=== PATIENT | male | born 1955 | race Caucasian/White ===

== ENCOUNTER 2022-08-18 13:59 | Emergency (ER) | payer SELFPAY ==
[2022-08-18 14:02] VITALS: BMI 33.2
[2022-08-18 14:06] VITALS: BP 138/80; PULSE 79; RESP 18; TEMP 37; O2SAT 98
--- NOTE | 2022-08-18 14:27 | ECG_ITS ---
[facility] Test Date: 2022-08-18 Pat Name: Stefano Williamson Department: Room: Gender: Male Bench Carpenter: : 1955 Requested By: Nader Bronson Order Number: [id number] Sisi MD: Sommer Peacock M.D. Measurements Intervals [place] Rate: 69 P: 79 [place]: 161 QRS: 64 QRSD: 96 T: 64 QT: 387 QTc: 415 Interpretive Statements SINUS RHYTHM No previous ECG available for comparison Electronically Signed On 08-18-2022 19:09:28 CDT by Sommer Peacock M.D. [id number] f
[2022-08-18 14:32] LABS: Basophils % 0.4 %; Eosinophils # 0.2 10^3/uL (0.0-0.8); Eosinophils % 1.7 %; Hematocrit 47.5 % (42.0-52.0); Hemoglobin 16.2 g/dL (11.7-16.6); Lymphocytes # 2.3 10^3/uL (0.8-4.8); Lymphocytes % 24.2 %; Mean Corpuscular HGB Conc 34.1 g/dL (30.0-36.0); Mean Corpuscular Hemoglobin 30.4 pg (28.0-34.0); Mean Corpuscular Volume 89.1 fl (80-94); Mean Platelet Volume 9.8 fL (7.4-10.4); Monocytes # 0.7 10^3/uL (0.2-0.9); Neutrophils # 6.09 10^3/uL (1.8-7.7); Neutrophils % 65.5 %; Nucleated Red Blood Cells % 0 %; Platelet Count 244 10^3/cmm (130-400); Red Blood Count 5.33 10^6/uL (4.1-5.3); Red Cell Distribution Width 13.2 % (12.1-15.1); White Blood Count 9.3 10^3/uL (4.0-10.0)
--- NOTE | 2022-08-18 14:37 | PC.NURSE ---
PT PLACED ON CONTINUOUS NIBP, SPO2, AND CM
--- NOTE | 2022-08-18 14:42 | XR_ITS ---
WS: [id number] Exam: XR chest 1V portable [id number] Date/Time of Exam: 08/18/2022 2:42 PM Reason For Exam: dyspnea/cough Comparison 08/18/2020. No prior studies. The lungs are hyperinflated and clear. Cardiomediastinal silhouette is unremarkable for portable tech nique. No pleural effusions are seen. Regional bony elements are intact. XR/XR chest 1V portable [id number] IMPRESSION: 1. Pulmonary hyperinflation. No acute process noted.
[2022-08-18 14:50] VITALS: PULSE 74; RESP 16; O2SAT 94
[2022-08-18] MEDS: ipratropium-albuterol 3 mL Neb INHALATION (14:58)
--- NOTE | 2022-08-18 14:58 | W.ED.SOB ---
HPI - SOB/Dyspnea General: Chief Complaint: Shortness of Breath/Dyspnea Stated Complaint: SOB Time Seen by Provider: 08/18/22 14:26 Source: patient Mode of arrival: ambulatory History of Present Illness: HPI Narrative: 67-year-old male presents emergency room complaining of shortness of breath. He has had flulike symptoms a week ago since then he has had persistent shortness of breath with any activity no chest pain. He gets chest tightness and discomfort when he coughs but other times he is fine. He has not used any albuterol or oxygen at home he does still currently smoke. She had a moderately productive cough no fever sweats or chills. MD elicited complaint: shortness of breath and cough Onset (ago): week(s) (1) Context: recent illness Timing: constant Severity: moderate Exacerbating factors: exertion, coughing and inspiration Associated symptoms: Reports chest congestion and chest pain (With cough and deep inspiration); Deny abdominal pain, cough, diaphoresis, dizziness, extremity pain, fever(s), hemoptysis, lightheadedness, myalgias, nausea, orthopnea, palpitations, paresthesias, polydipsia, polyuria, rash, sense of impending doom, syncope or vomiting Treatment prior to arrival: none Review of Systems Const: Denies: fever(s), chills, fatigue, malaise or diaphoresis ENMT: Denies: throat pain, ear or mastoid pain, nasal discharge or nasal congestion Card: Reports: chest pain (With cough and deep inspiration); Denies: palpitations, lightheadedness, syncope or orthopnea Resp: Reports: dyspnea, productive cough, wheezing and chest congestion; Denies: hemoptysis GI: Denies: abdominal pain, nausea or vomiting : Denies: flank pain, difficulty urinating, dysuria, urinary frequency or urinary urgency Musc: Denies: extremity pain Skin/Breast: Denies: rash or pruritus Neuro: Denies: dizziness Endo: Denies: polyuria or polydipsia [facility] ED PFSH: Medical History (Updated 08/18/22 @ 15:11 by Nader Hicks DO) No pertinent past medical history Surgical History (Updated 08/18/22 @ 15:11 by Nader Hicks DO) No pertinent past surgical history Social History (Updated 08/18/22 @ 15:11 by ROBERT Landeros Smoking and tobacco status: current every day smoker Alcohol intake: current Physical Exam Const: COMMON NORMALS: no acute distress GENERAL APPEARANCE: cooperative and comfortable ORIENTATION/CONSCIOUSNESS: Yes awake, Yes oriented to person, Yes oriented to place and Yes oriented to time HENMT: COMMON NORMALS: normocephalic, atraumatic and hearing grossly normal bilaterally HEAD & SCALP: normocephalic and atraumatic Resp: COMMON NORMALS: normal respiratory effort, No retractions and No use of accessory muscles AUSCULTATION: wheezes Cardio: COMMON NORMALS: regular rate, regular rhythm and No murmurs present (Cardio) RATE: regular rate RHYTHM: regular rhythm GI: COMMON NORMALS: Soft to palpation and No hepatosplenomegaly present AUSCULTATION: Yes normoactive bowel sounds PALPATION: Yes Soft to palpation, No Tenderness to palpation present (GI), No Guarding due to palpation present (GI) and Yes No hepatosplenomegaly present Extremity: COMMON NORMALS: normal to inspection, capillary refill normal, no clubbing, cyanosis or edema, no calf tenderness and no pedal edema Neuro: SENSORIUM/ORIENTATION: Yes oriented to person, Yes oriented to place and Yes oriented to time Skin: COMMON NORMALS: no rashes or lesions noted GENERAL SKIN EXAM: no rashes or lesions noted Course Vital Signs: Vital signs: Vital Signs Temperature 98.6 F 08/18/22 14:06 Pulse Rate 72 08/18/22 15:02 Respiratory Rate 16 08/18/22 14:50 Blood Pressure 138/80 08/18/22 14:06 Pulse Oximetry 94 08/18/22 14:50 Oxygen Delivery Me thod 08/18/22 14:50 MDM - SOB/Dyspnea Medical Decision Making Labs imaging and EKG reviewed as found in the chart. Hyperinflation on chest x-ray consistent with COPD. No acute infiltrates. Prednisone and nebs in the emergency room. Discharge home with albuterol start oral steroid burst and taper tomorrow course of doxycycline follow-up with primary care if not improving Medical Records I reviewed the patient's medical records. Lab Data I reviewed the patient's lab results. : 08/18/22 14:24 08/18/22 14:24 Labs/Radiology: Radiology Impressions Chest X-Ray 08/18/22 14:42 IMPRESSION: 1. Pulmonary hyperinflation. No acute process noted. Laboratory Results WBC 9.3 10^3/uL (4.0-10.0) 08/18/22 14:24 RBC 5.33 10^6/uL (4.1-5.3) H 08/18/22 14:24 Hgb 16.2 g/dL (11.7-16.6) 08/18/22 14:24 Hct 47.5 % (42.0-52.0) 08/18/22 14:24 MCV 89.1 fl (80-94) 08/18/22 14:24 MCH 30.4 pg (28.0-34.0) 08/18/22 14:24 MCHC 34.1 g/dL (30.0-36.0) 08/18/22 14:24 RDW 13.2 % (12.1-15.1) 08/18/22 14:24 Plt Count 244 10^3/cmm (130-400) 08/18/22 14:24 MPV 9.8 fL (7.4-10.4) 08/18/22 14:24 Neut % (Auto) 65.5 % 08/18/22 14:24 Lymph % (Auto) 24.2 % 08/18/22 14:24 [place] % (Auto) 8.0 % 08/18/22 14:24 Eos % (Auto) 1.7 % 08/18/22 14:24 Baso % (Auto) 0.4 % 08/18/22 14:24 Neut # (Auto) 6.09 10^3/uL (1.8-7.7) 08/18/22 14:24 Lymph # (Auto) 2.3 10^3/uL (0.8-4.8) 08/18/22 14:24 [place] # (Auto) 0.7 10^3/uL (0.2-0.9) 08/18/22 14:24 Eos # (Auto) 0.2 10^3/uL (0.0-0.8) 08/18/22 14:24 Baso # (Auto) 0.0 10^3/uL (0.0-0.1) 08/18/22 14:24 Nucleated RBC % (auto) 0 % 08/18/22 14:24 Nucleated RBCs # 0.0 /100WBC 08/18/22 14:24 Sodium 131 mmol/L (136-145) L 08/18/22 14:24 Potassium 4.5 mmol/L (3.5-5.1) 08/18/22 14:24 Chloride 100 mmol/L (98-107) 08/18/22 14:24 Carbon Dioxide 19 mmol/L (22-29) L 08/18/22 14:24 Anion Gap 16.5 (5-19) 08/18/22 14:24 BUN 20 mg/dL (8-23) 08/18/22 14:24 Creatinine 0.8 mg/dL (0.7-1.2) 08/18/22 14:24 GFR Calculation 97.0 mL/min (90-130) 08/18/22 14:24 Glucose 89 mg/dL (65-115) 08/18/22 14:24 Calculated Osmolality 274 mOsm/kg (285-295) L 08/18/22 14:24 Calcium 8.9 mg/dL (8.5-10.5) 08/18/22 14:24 Total Bilirubin 0.3 mg/dL (0.15-1.2) 08/18/22 14:24 AST 15 U/L (0-40) 08/18/22 14:24 ALT 20 U/L (0-41) 08/18/22 14:24 Alkaline Phosphatase 74 U/L (40-130) 08/18/22 14:24 Troponin T Baseline 7 ng/L (0-15) 08/18/22 14:24 Total Protein 6.7 g/dL (6.6-8.7) 08/18/22 14:24 Albumin 3.6 g/dL (3.5-5.2) 08/18/22 14:24 Globulin 3.1 g/dL (1.3-4.6) 08/18/22 14:24 Discharge Plan Discharge Patient Disposition: Home Clinical Impression: Acute exacerbation of chronic obstructive airways disease Condition: Stable Prescriptions: New doxycycline hyclate 100 mg capsule 100 mg PO BID 10 Days Qty: 20 0RF prednisone 20 mg tablet 20 mg PO TID Qty: 15 0RF Rx Instructions: 1 p.o. 3 times daily x3 days, 1 p.o. twice daily x2 days, 1 p.o. daily x2 days No Action nicotine 14 mg/24 hr Patch 24 Hour 1 patch TRANSDERMAL DAILY ibuprofen 800 mg Tablet 800 mg PO Q8H PRN (Reason: Pain) Mucinex DM 30-600 mg Tablet Extended Release 12 Hr 1 tab PO Q12H PRN (Reason: Cough) Discharge Orders: Discharge ED (Routine); Ordered 08/18/22 Ordered By: Nader Hicks Discharge Diet: Usual diet Discharge Activity: Increase activity as tolerated Patient Instructions: Opioid Safety, Pain Management Activity Restrictions/Additional Instructions: Use albuterol as needed. Start steroid taper tomorrow start antibiotics today. If not improving in the next week recheck with your primary care doctor Coding Level of Care Code ED Dipper Machine Operator for Brett Ragland
[2022-08-18 15:02] VITALS: PULSE 72
[2022-08-18 15:04] LABS: Alanine Aminotransferase 20 U/L (0-41); Albumin Level 3.6 g/dL (3.5-5.2); Alkaline Phosphatase 74 U/L (40-130); Anion Gap 16.5 (5-19); Aspartate Amino Transferase 15 U/L (0-40); Blood Urea Nitrogen 20 mg/dL (8-23); Calcium 8.9 mg/dL (8.5-10.5); Carbon Dioxide 19 mmol/L (22-29); Chloride 100 mmol/L (98-107); Globulin 3.1 g/dL (1.3-4.6); Glucose 89 mg/dL (65-115); Osmolality Calculated 274 mOsm/kg (285-295); Potassium 4.5 mmol/L (3.5-5.1); Sodium 131 mmol/L (136-145); Total Bilirubin 0.3 mg/dL (0.15-1.2); Total Protein 6.7 g/dL (6.6-8.7); Troponin(5th) Baseline 7 ng/L (0-15)
[2022-08-18 15:06] VITALS: BP 117/77; PULSE 77; RESP 20; O2SAT 95
[2022-08-18 15:13] LABS: Add Urine Microscopic? NO; Charge for UA Resulting for Rev
[2022-08-18 15:19] LABS: Bilirubin Urine Negative (Negative); Blood Urine Negative (Negative); Glucose Urine UA Negative (Normal); Ketones Urine Negative (Negative); Leukocyte Esterase Urine Negative (Negative); Nitrate Urine Negative; Protein Urine Negative; Specific Gravity, Urine 1.025 (1.005-1.030); Urine Appearance Clear (CLEAR); Urine Color Yellow (Yellow); Urobilinogen Urine 0.2 mg/dL (Negative); pH Urine 5.5 (5-7)
[2022-08-18 15:28] VITALS: BP 117/77; PULSE 74; RESP 20; O2SAT 95
== END 2022-08-18 15:30 | disposition home or self-care (01) ==
PROVIDERS: Emergency Provider Family Medicine
DX: J44.1 Chronic obstructive pulmonary disease with (acute) exacerbation (principal); F17.210 Nicotine dependence, cigarettes, uncomplicated
CPT/HCPCS: 71045; 80053; 81003; 84484; 85025; 93005; 94640; 96374; 99285; J2930

== ENCOUNTER 2022-09-25 07:22 | Day surgery (SDC) | payer MEDICARE, SELFPAY ==
[2022-09-21 13:07] VITALS: BMI 30.6
[2022-09-25 07:43] VITALS: BP 134/80; PULSE 84; RESP 18; TEMP 36.6; O2SAT 97
[2022-09-25] MEDS: sodium chloride 0.9% 1,000 ML 30 ML IV (07:48)
--- NOTE | 2022-09-25 08:01 | ANES.PREANE2 ---
Pre-Anesthetic Assessment Height/Weight: Height 1.85 m Weight 105.233 kg Temp Pulse Resp BP Pulse Ox O2 Del Method 97.9 F 84 18 134/80 97 09/25/22 07:43 09/25/22 07:43 09/25/22 07:43 09/25/22 07:43 09/25/22 07:43 09/25/22 07:43 Preop Diagnosis: hematochezia and pain Operation Date: 09/25/22 08:45 Proposed Procedures p [id number], [id number] colonoscopy K92.1(Not Applicable) - Jaswinder Rene MD s Colonoscopy(Not Applicable) - Jaswinder Rene MD Familial anesthetic complications: None Was Beta Angela taken within 24 hours: N/A Was Clonidine taken within 24 hours: N/A Last intake: Intake Last Liquid Date 09/24/22 Last Liquid Time 23:00 Last Solid Date 09/23/22 Last Solid Time 17:00 Social Alcohol and Tobacco 2 packs per day for years, 2-3 per day now pack(s) per day Exam alert, oriented x 3, clear to auscultation bilaterally and regular rate & rhythm Airway Submandibular: within normal limits Cervical ROM: within normal limits Mallampati: Class II Dentition: false History/ROS No significant history except as noted and No significant complaints Pulmonary Chronic Obstructive Pulmonary Disease and Exertional Dyspnea In ER one month ago for SOB. Diagnosed with emphysema. No treatment started. CV/HEM None reported None reported Hepatic None reported GI None reported Metabolic None reported Musc/skel Osteoarthritis/DJD Neuropsych None reported Anesthetic Plan ASA status: 2 Anesthesia: Anesthesia Evaluation, General and MAC Risk of > 500 ml blood loss (7ml/kg in children): No Medications/Allergies Home Medications Medication Instructions Recorded Confirmed Last Taken Type nicotine 14 mg/24 hr daily 1 patch transdermal DAILY 08/18/22 09/25/22 09/24/22 History transdermal patch Allergies Allergy/AdvReac Type Severity Reaction Status Date / Time No Known Allergies Allergy Unverified 09/21/22 13:05 [facility] Anesthesia Medical History No pertinent past medical history Surgical History No pertinent past surgical history Social History Smoking and tobacco status: current every day smoker Alcohol intake: current Data Anesthesia Cardiac Studies: No Data to Display
--- NOTE | 2022-09-25 08:04 | W.PM.OPSFHP ---
Same Day Surgery H&P Indication for Procedure/HPI DATE OF PROCEDURE: September 25, 2022 CHIEF COMPLAINT/INDICATIONFOR SURGICAL PROCEDURE: Epigastric pain and weight loss PREOP DIAGNOSIS: hematochezia and pain PLANNED PROCEDURE: Operation Date: 09/25/22 08:45 Proposed Procedures p [id number], [id number] colonoscopy K92.1(Not Applicable) - Jaswinder Rene MD s Colonoscopy(Not Applicable) - Jaswinder Rene MD Medications/Allergies* Home Medications Medication Instructions Recorded Confirmed Type nicotine 14 mg/24 hr daily 1 patch transdermal DAILY 08/18/22 09/25/22 History transdermal patch Allergies/Adverse Reactions Allergy/AdvReac Type Severity Reaction Status Date / Time No Known Allergies Allergy Unverified 09/21/22 13:05 Pertinent History/Comorbid Conditions* Medical History (Updated 09/19/22 @ 14:08 by Jaswinder Rene MD) No pertinent past medical history Surgical History (Updated 08/18/22 @ 15:11 by Nader Hicks DO) No pertinent past surgical history Social History Smoking and tobacco status: current every day smoker Alcohol intake: current Pertinent Exam Findings alert, oriented x 3, clear to auscultation bilaterally, regular rate & rhythm, operative site marked and procedure specific exam findings Recommendations Surgery/Procedure today Coding Level of Care Code Acute Substance Abuse Rn for Brett Ragland
[2022-09-25 09:40] VITALS: BP 101/70; PULSE 61; RESP 16; TEMP 36.2; O2SAT 98
--- NOTE | 2022-09-25 10:04 | CTR_ITS ---
PROCEDURE INFORMATION: Exam: CT Abdomen And Pelvis With Contrast Exam date and time: 09/25/2022 11:37 AM Age: 67 years old Clinical indication: Mass, lump, or swelling; Other: Colon; Additional info: Colon mass, iv contrast TECHNIQUE: Imaging protocol: Computed tomography of the abdomen and pelvis with contrast. Axial, coronal and sagittal reformatted images were created and reviewed. Radiation optimization: All CT scans at this facility use at least one of these dose optimization techniques: automated exposure control; mA and/or kV adjustment per patient size (includes targeted exams where dose is matched to clinical indication); or iterative reconstruction. Contrast material: OMNI 350; Contrast volume: 100 ml; Contrast route: INTRAVENOUS (IV); Other contrast: Oral, omni 350, 25ml, 500ml; COMPARISON: CR XR chest 1V portable [id number] 08/18/2022 2:47 PM RADIATION DOSE METRICS: Total DLP (mGy-cm): 813.83 FINDINGS: Lungs: Linear stranding and groundglass at the lung bases, likely due to atelectasis and/or scarring. Right basilar calcified granulomata. Liver: Multiple low-density hepatic lesions, measuring up to 1.8 cm in the left hepatic lobe, the largest of which are cysts and several of which are too small to characterize. Coarse calcified hepatic granulomata. Gallbladder and bile ducts: No radiodense gallstones. No biliary ductal dilatation. Pancreas: Mild, diffuse pancreatic atrophy. Spleen: Coarse calcified splenic granulomata. Adrenal glands: Bilateral low-density adrenal nodules, measuring up to 8 mm on the left, likely benign adenomas. Kidneys and ureters: 1.5 cm right renal cyst (no follow-up is indicated based on the imaging appearance). No radiodense calculi. No hydronephrosis. Stomach and bowel: Focal area of irregular wall thickening and luminal narrowing in the mid sigmoid colon, presumably corresponding to the abnormality seen on the recent colonoscopy. Scattered colonic diverticula without evidence of diverticulitis. No obstruction. No pneumatosis. Appendix: Normal. Intraperitoneal space: No free fluid. No organized fluid collection. No free air. Vasculature: Mild atherosclerotic disease. Aneurysmal dilatation of the infrarenal abdominal aorta to approximately 3.5 cm. No aneurysm. Lymph nodes: Several small perisigmoid lymph nodes, measuring up to 10 x 8 mm. Urinary bladder: Unremarkable as visualized. Reproductive: Unremarkable. Bones/joints: No acute osseous abnormality. Osteopenia. Mild degenerative changes. Chronic partial L1 superior endplate compression fracture. Benign-appearing lucency in the L4 vertebra. Soft tissues: Tiny, fat containing umbilical hernia. CT/CT abdomen pelvis w con* [id number] IMPRESSION: 1. Focal area of irregular wall thickening and luminal narrowing in the mid sigmoid colon, presumably corresponding to the abnormality seen on the recent colonoscopy. 2. Several small perisigmoid lymph nodes, measuring up to 10 x 8 mm. 3. Additional findings, as above. COMMENTS: 1. Consistent with the [employer]'s Incidental Findings Committee white paper (J Am Param Radiol 2017): Any incidental adrenal lesion less than 1 cm is likely benign. No follow-up imaging is recommended for these lesions per consensus recommendations based on imaging criteria. Further lab evaluation could be pursued if warranted based on clinical findings. 2. Consistent with the [employer]'s Incidental Findings Committee white paper (J Am Param Radiol 2018): Any incidental renal lesion less than 1 cm or classified as too small to characterize, or any incidental cystic renal lesion characterized as simple-appearing, is likely benign. No follow-up imaging is recommended for these lesions per consensus recommendations based on imaging criteria.
[2022-09-25] MEDS: iohexol 300 mg/mL 50 mL Btl PO (10:46)
[2022-09-25 11:21] LABS: Carcinoembryonic Antigen 3.5 ng/mL (0.0-4.7)
--- NOTE | 2022-09-25 12:55 | ANE.PACU2 ---
Inpatient post-anesthesia follow up: Airway intact: Yes Vital signs: Temperature 97.2 F Pulse Rate 61 Respiratory Rate 16 Blood Pressure 101/70 Pulse Oximetry 98 Oxygen Delivery Me thod Room Air Oxygen Flow Rate Fraction of Inspir ed Oxygen Hydration adequate: Yes Nausea and vomiting: No Pain level: 1 Mental status: Baseline
[2022-09-25] MEDS: iohexol 350 mg/mL 500 mL Btl (per mL) IV (13:45)
[2022-09-29 09:06] LABS: Mismatch Repari Proteins-IHC See Report
== END 2022-09-25 12:41 | disposition home or self-care (01) ==
PROVIDERS: PCP Internal Medicine; Visit Provider Internal Medicine
PROC: 0DJ08ZZ Inspection of Upper Intestinal Tract, Via Natural or Artificial Opening Endoscopic (ICD-10-PCS; CPT 43235; principal; 2022-09-25 08:45)
PROC: 0DJD8ZZ Inspection of Lower Intestinal Tract, Via Natural or Artificial Opening Endoscopic (ICD-10-PCS; CPT 45378; 2022-09-25 08:45)
DX: C18.9 Malignant neoplasm of colon, unspecified (principal); K92.1 Melena; K44.9 Diaphragmatic hernia without obstruction or gangrene; F17.210 Nicotine dependence, cigarettes, uncomplicated; J44.9 Chronic obstructive pulmonary disease, unspecified
CPT/HCPCS: 36415; 43235; 45380; 45381; 74177; 82378; 88305; 88360; J2704; J7030; Q9967

== ENCOUNTER → 2022-10-18 11:53 | Outpatient (BNVA) | payer MEDICARE, SELFPAY | PROVIDERS: PCP Internal Medicine; Visit Provider Internal Medicine | DX: Z01.818 Encounter for other preprocedural examination (principal); C18.9 Malignant neoplasm of colon, unspecified | CPT/HCPCS: 99204 ==

== ENCOUNTER 2022-12-11 10:50 | Oncology outpatient (recurring) (ONCR) | payer MEDICARE, MEDICAID, SELFPAY ==
--- NOTE | 2022-12-11 12:46 | XR_ITS ---
WS: [id number] Exam: XR abdomen 1V* [id number] Date/Time of Exam: 12/11/2022 12:53 PM Reason For Exam: abdominal pain No bowel obstruction or pneumoperitoneum. No sign of organ enlargement. Moderate amount of stool in t he transverse and right colon. Regional bony elements are unremarkable. XR/XR abdomen 1V* [id number] IMPRESSION: 1. No acute abdominal finding.
[2022-12-11 14:03] LABS: Add Urine Microscopic? NO; Charge for UA Resulting for Rev
[2022-12-11 14:11] LABS: Bilirubin Urine Neg (Negative); Blood Urine Neg (Negative); Glucose Urine UA Norm (Normal); Ketones Urine Negative (Negative); Leukocyte Esterase Urine Negative (Negative); Nitrate Urine Negative (Negative); Protein Urine Neg (Negative); Urine Appearance Clear (CLEAR); Urine Color Yellow (Yellow); Urobilinogen Urine Neg (Negative); pH Urine 5 (5-7)
== END 2022-12-19 23:59 | disposition home or self-care (01) ==
PROVIDERS: Internal Medicine Hematology & Oncology; PCP Internal Medicine; Visit Provider Internal Medicine Medical Oncology
DX: C18.7 Malignant neoplasm of sigmoid colon (principal); R10.84 Generalized abdominal pain; Z90.49 Acquired absence of other specified parts of digestive tract
CPT/HCPCS: 74018; 81003; 99204

== ENCOUNTER → 2022-12-15 09:57 | Day surgery (SDC) | payer MEDICARE, MEDICAID, SELFPAY ==
--- NOTE | 2022-12-15 | XR_ITS ---
WS: [id number] Exam: XR chest 1V portable [id number] Date/Time of Exam: 12/15/2022 12:00 AM Reason For Exam: PICC LINE Comparison with the earlier exam on the same day at 1106 hours. Right-sided PICC line is been repositioned and now ends in the lower one third of the SVC. The lungs remain clear and hyperinflated. Normal heart size. There may be some mediastinal widening. XR/XR chest 1V portable [id number] IMPRESSION: 1. Right-sided PICC line ends in the lower one third of the SVC in good positio n. No other changes when compared to the earlier study on the same day.
--- NOTE | 2022-12-15 09:36 | XR_ITS ---
WS: [id number] Exam: XR chest 1V portable [id number] Date/Time of Exam: 12/15/2022 11:02 AM Reason For Exam: Post PICC insertion Comparison 08/18/2022. The lungs are hyperinflated and clear. Heart size is within normal limits. A right-sided PICC line michaels s been placed and extends into the right atrium. There may be some widening of the mediastinum. Bony structures are intact. Inferior right lung base is out of the [id number]. XR/XR chest 1V portable [id number] IMPRESSION: 1. Right-sided PICC line ending in the right atrium. 2. There may be widening of the mediastinum. 3. Pulmonary hyperinflation.
[2022-12-15 10:15] VITALS: BP 141/88; PULSE 91; RESP 18; TEMP 36.8; O2SAT 95
== END ==
LOC: GILAB 10:00
PROVIDERS: PCP Internal Medicine; Visit Provider Internal Medicine Hematology & Oncology
DX: C18.9 Malignant neoplasm of colon, unspecified (principal)
CPT/HCPCS: 36569; 71045

== ENCOUNTER 2022-12-21 07:49 | Outpatient (CLI) | payer MEDICARE, MEDICAID, SELFPAY ==
--- NOTE | 2022-12-21 08:30 | US_ITS ---
WS: [id number] ULTRASOUND ABDOMEN LIMITED CLINICAL INFORMATION: abdominal pain COMPARISON: None. FINDINGS: Technically difficult study due to bowel gas. In the area of interest, inferior to the umbilicus, bowel gas visualized with normal caliber fluid-fi lled loops of bowel. Normal appearing bladder. Liver Size: Mild hepatomegaly Craniocaudal length: 16.6 cm. Echogenicity: Normal. Surface nodularity: None. Mass (size and location): Simple hepatic cysts measuring 1.8 x 1.9 x 1.5 cm and 1.3 x 1.1 x 0.8 cm Bile ducts Intrahepatic ducts: Normal. Common bile duct diameter: 0.6 cm. Gallbladder Normal. Gallstones: None. Gallbladder sludge: None. Gallbladder wall thickening: None. Pericholecystic fluid: None. Sonographic Marshall sign: Absent. Pancreas Not well seen Right kidney: Inferior pole simple cyst measuring 1.3 x 1.4 x 1.1 cm Hydronephrosis: None. Size: 11.5 cm x 6.3 cm x 5.1 cm. Abdominal aorta and IVC Visualized portions are normal. Ascites: None. US/US abdomen limited [id number] IMPRESSION: Limited examination due to bowel gas. 1. In the area of interest, bowel gas visualized with normal caliber fluid-madeline led loops of bowel. 2. Mild hepatomegaly. Incidental simple hepatic cysts measuring 1.8 x 1.9 x 1. 5 cm and 1.3 x 1.1 x 0.8 cm 3. No hydronephrosis in RIGHT kidney. Small inferior pole simple cyst 1.3 x 1. 4 x 1.1 cm 4. Normal gallbladder and common bile duct. 5. No ascites.
== END 2022-12-21 07:50 | disposition home or self-care (01) ==
PROVIDERS: PCP Internal Medicine; Visit Provider Internal Medicine Hematology & Oncology
DX: C18.9 Malignant neoplasm of colon, unspecified (principal); R10.9 Unspecified abdominal pain; R16.0 Hepatomegaly, not elsewhere classified; N28.1 Cyst of kidney, acquired
CPT/HCPCS: 76705

== ENCOUNTER → 2023-01-01 08:11 | Outpatient (BNVA) | payer MEDICARE, MEDICAID, SELFPAY | PROVIDERS: PCP Internal Medicine; Visit Provider Nurse Practitioner | DX: C18.7 Malignant neoplasm of sigmoid colon (principal) | CPT/HCPCS: 99214 ==

== ENCOUNTER 2023-01-15 08:00 | Oncology outpatient (recurring) (ONCR) | payer MEDICARE, MEDICAID, SELFPAY ==
[2022-12-25 09:34] LABS: Basophils # 0.1 10^3/uL (0.0-0.1); Basophils % 0.6 %; Eosinophils # 0.1 10^3/uL (0.0-0.8); Eosinophils % 1.6 %; Hematocrit 47.2 % (42.0-52.0); Hemoglobin 16.3 g/dL (11.7-16.6); Lymphocytes # 2.6 10^3/uL (0.8-4.8); Lymphocytes % 29.9 %; Mean Corpuscular HGB Conc 34.5 g/dL (30.0-36.0); Mean Corpuscular Hemoglobin 29.6 pg (28.0-34.0); Mean Corpuscular Volume 85.8 fl (80-94); Mean Platelet Volume 9.7 fL (7.4-10.4); Monocytes # 0.7 10^3/uL (0.2-0.9); Monocytes % 7.5 %; Neutrophils # 5.18 10^3/uL (1.8-7.7); Neutrophils % 60.2 %; Nucleated Red Blood Cells % 0 %; Platelet Count 243 10^3/cmm (130-400); Red Cell Distribution Width 12.4 % (12.1-15.1); White Blood Count 8.6 10^3/uL (4.0-10.0)
[2022-12-25 09:55] LABS: Alanine Aminotransferase 13 U/L (0-41); Alkaline Phosphatase 79 U/L (40-130); Anion Gap 13.9 (5-19); Aspartate Amino Transferase 12 U/L (0-40); Blood Urea Nitrogen 18 mg/dL (8-23); Calcium 8.9 mg/dL (8.5-10.5); Carbon Dioxide 26 mmol/L (22-29); Chloride 98 mmol/L (98-107); Globulin 2.7 g/dL (1.3-4.6); Glomerular Filtration Rate 113.2 mL/min (90-130); Glucose 123 mg/dL (65-115); Osmolality Calculated 281 mOsm/kg (285-295); Potassium 3.9 mmol/L (3.5-5.1); Sodium 134 mmol/L (136-145); Total Bilirubin 0.4 mg/dL (0.15-1.2); Total Protein 6.7 g/dL (6.6-8.7)
[2022-12-25 10:40] LABS: Carcinoembryonic Antigen 2.5 ng/mL (0.0-4.7)
[2022-12-25] MEDS: palonosetron 0.25 mg/5 mL SDV IVP (12:20)
[2022-12-25] MEDS: dextrose 5% 250 ML 75 ML IV (12:20)
--- NOTE | 2022-12-25 15:42 | PC.NURSE ---
sterile dressing changed to right upper arm double lumen picc line, claves changed and cleaned with alcohol and betadine, site cleaned with chloraprep and stat lock changed. Patient tolerated well.
[2022-12-25 16:27] VITALS: BP 108/68; PULSE 73; RESP 18; TEMP 36.8; O2SAT 96
--- NOTE | 2022-12-26 10:26 | PC.PHAR ---
XELODA EDUCATION 12/25/22: EDUCATED PATIENT AND AT CHAIR SIDE FOR XELODA. WE TALKED ABOUT HOW THE DRUG WORKS AND HOW TO TAKE IT. PATIENT WILL BEGIN TREATMENT THE EVENING OF DAY 1 OF CYCLE AND CONTINUE TWICE DAILY UNTIL THE MORNING OF DAY 15. I PROVIDED A CALENDAR. PATIENT WILL TAKE A TOTAL OF 6 TABS BID AFTER A MEAL WITH A FULL GLASS OF WATER. WE TALKED ABOUT THE COMMON SIDE EFFECTS SUCH DIARRHA & MUCOSITIS. I SUGGESTED THAT PATIENT HAS OTC ANTIDIARRHEAL AT HOME AND ENCOURAGED HIM TO CALL US FOR S/SX OF MUCOSITIS. I ALSO ENCOURAGED HIM TO CALL US WITH ANY SKIN REACTION (HFS). HE UNDERSTANDS THIS MED IS GIVEN IN COMBO W/ OXALIPLATIN. NURSING PROVIDED OXAL EDUCATION. ENCOURAGED PATIENT TO BE COMPLIANT AND TO KEEP ALL LAB APPOINTMENTS. PATIENT MAY CALL ANYTIME FOR QUESTIONS/CONCERNS.
[2023-01-01 08:38] LABS: Basophils % 0.3 %; Eosinophils % 0.5 %; Hematocrit 45.3 % (42.0-52.0); Hemoglobin 15.7 g/dL (11.7-16.6); Lymphocytes # 2.1 10^3/uL (0.8-4.8); Lymphocytes % 27.9 %; Mean Corpuscular HGB Conc 34.7 g/dL (30.0-36.0); Mean Corpuscular Hemoglobin 29.5 pg (28.0-34.0); Mean Corpuscular Volume 85.2 fl (80-94); Mean Platelet Volume 9.4 fL (7.4-10.4); Monocytes # 0.8 10^3/uL (0.2-0.9); Monocytes % 11.1 %; Neutrophils # 4.47 10^3/uL (1.8-7.7); Neutrophils % 60.1 %; Nucleated Red Blood Cells % 0 %; Platelet Count 203 10^3/cmm (130-400); Red Blood Count 5.32 10^6/uL (4.1-5.3); Red Cell Distribution Width 12.2 % (12.1-15.1); White Blood Count 7.5 10^3/uL (4.0-10.0)
[2023-01-01 09:02] LABS: Alanine Aminotransferase 13 U/L (0-41); Albumin Level 3.8 g/dL (3.5-5.2); Alkaline Phosphatase 75 U/L (40-130); Anion Gap 15.1 (5-19); Aspartate Amino Transferase 13 U/L (0-40); Blood Urea Nitrogen 15 mg/dL (8-23); Calcium 9.1 mg/dL (8.5-10.5); Carbon Dioxide 25 mmol/L (22-29); Chloride 101 mmol/L (98-107); Globulin 2.6 g/dL (1.3-4.6); Glucose 111 mg/dL (65-115); Osmolality Calculated 286 mOsm/kg (285-295); Potassium 4.1 mmol/L (3.5-5.1); Sodium 137 mmol/L (136-145); Total Bilirubin 0.4 mg/dL (0.15-1.2); Total Protein 6.4 g/dL (6.6-8.7)
--- NOTE | 2023-01-01 09:34 | PC.NURSE ---
PICC line dressing change done via sterile technique. Pt tolerated well. No redness or irritation noted. - PIERRE
[2023-01-08 11:41] LABS: Basophils % 0.2 %; Eosinophils % 0.4 %; Hematocrit 43.7 % (42.0-52.0); Hemoglobin 15.2 g/dL (11.7-16.6); Lymphocytes # 1.8 10^3/uL (0.8-4.8); Lymphocytes % 21.9 %; Mean Corpuscular HGB Conc 34.8 g/dL (30.0-36.0); Mean Corpuscular Hemoglobin 29.8 pg (28.0-34.0); Mean Corpuscular Volume 85.7 fl (80-94); Mean Platelet Volume 9.2 fL (7.4-10.4); Monocytes # 0.7 10^3/uL (0.2-0.9); Neutrophils # 5.57 10^3/uL (1.8-7.7); Nucleated Red Blood Cells % 0 %; Platelet Count 184 10^3/cmm (130-400); White Blood Count 8.1 10^3/uL (4.0-10.0)
[2023-01-08 11:58] LABS: Alanine Aminotransferase 9 U/L (0-41); Albumin Level 3.8 g/dL (3.5-5.2); Alkaline Phosphatase 72 U/L (40-130); Anion Gap 15.9 (5-19); Aspartate Amino Transferase 17 U/L (0-40); Blood Urea Nitrogen 15 mg/dL (8-23); Calcium 8.6 mg/dL (8.5-10.5); Carbon Dioxide 23 mmol/L (22-29); Chloride 101 mmol/L (98-107); Globulin 2.8 g/dL (1.3-4.6); Glucose 139 mg/dL (65-115); Osmolality Calculated 285 mOsm/kg (285-295); Potassium 3.9 mmol/L (3.5-5.1); Sodium 136 mmol/L (136-145); Total Bilirubin 0.5 mg/dL (0.15-1.2); Total Protein 6.6 g/dL (6.6-8.7)
--- NOTE | 2023-01-08 13:45 | PC.NURSE ---
PICC line dressing change completed via sterile technique. No redness or irritation noted. Pt tolerated well. PIERRE
[2023-01-15 08:25] VITALS: BP 124/78; PULSE 74; RESP 18; TEMP 36.6; O2SAT 98
[2023-01-15 08:41] LABS: Basophils % 0.3 %; Eosinophils # 0.1 10^3/uL (0.0-0.8); Eosinophils % 2.1 %; Hematocrit 43.6 % (42.0-52.0); Hemoglobin 15.3 g/dL (11.7-16.6); Lymphocytes # 1.9 10^3/uL (0.8-4.8); Lymphocytes % 30.3 %; Mean Corpuscular HGB Conc 35.1 g/dL (30.0-36.0); Mean Corpuscular Hemoglobin 30.2 pg (28.0-34.0); Mean Platelet Volume 8.8 fL (7.4-10.4); Monocytes # 0.6 10^3/uL (0.2-0.9); Monocytes % 9.4 %; Neutrophils # 3.56 10^3/uL (1.8-7.7); Neutrophils % 57.7 %; Nucleated Red Blood Cells % 0 %; Platelet Count 200 10^3/cmm (130-400); Red Blood Count 5.07 10^6/uL (4.1-5.3); Red Cell Distribution Width 14.6 % (12.1-15.1); White Blood Count 6.2 10^3/uL (4.0-10.0)
[2023-01-15 09:01] LABS: Alanine Aminotransferase 14 U/L (0-41); Albumin Level 3.9 g/dL (3.5-5.2); Alkaline Phosphatase 84 U/L (40-130); Anion Gap 14.9 (5-19); Blood Urea Nitrogen 15 mg/dL (8-23); Calcium 8.7 mg/dL (8.5-10.5); Carbon Dioxide 23 mmol/L (22-29); Chloride 104 mmol/L (98-107); Globulin 2.6 g/dL (1.3-4.6); Glomerular Filtration Rate 113.2 mL/min (90-130); Glucose 136 mg/dL (65-115); Osmolality Calculated 289 mOsm/kg (285-295); Potassium 3.9 mmol/L (3.5-5.1); Sodium 138 mmol/L (136-145); Total Bilirubin 0.3 mg/dL (0.15-1.2); Total Protein 6.5 g/dL (6.6-8.7)
[2023-01-15 09:11] LABS: Aspartate Amino Transferase 15 U/L (0-40)
[2023-01-15] MEDS: pantoprazole 40 mg SDV IVP (11:36)
[2023-01-15] MEDS: dextrose 5% 250 ML 75 ML IV (11:37)
[2023-01-15] MEDS: ondansetron 2 mg/ML SDV 2 mL 8 MG IVP (11:38)
== END 2023-01-16 23:59 | disposition home or self-care (01) ==
PROVIDERS: Internal Medicine Hematology & Oncology; PCP Internal Medicine; Visit Provider Internal Medicine Medical Oncology
DX: Z51.11 Encounter for antineoplastic chemotherapy (principal); C18.7 Malignant neoplasm of sigmoid colon; C77.8 Secondary and unspecified malignant neoplasm of lymph nodes of multiple regions; R10.84 Generalized abdominal pain; R16.0 Hepatomegaly, not elsewhere classified; K76.89 Other specified diseases of liver; R11.0 Nausea; K59.00 Constipation, unspecified; Z79.899 Other long term (current) drug therapy
CPT/HCPCS: 36592; 80053; 82378; 85025; 96375; 96413; 96415; 99214; C9113; J1100; J2405; J2469; J7060; J9263

== ENCOUNTER 2023-02-06 12:56 | Outpatient (CLI) | payer MEDICARE, MEDICAID, SELFPAY ==
--- NOTE | 2023-02-06 13:30 | CT_ITS ---
WS: [id number] CT scan of the abdomen and pelvis with Oral and IV contrast. Additional two-dimensional coronal and s agittal reconstruction was performed. 02/06/2023 Clinical Data: restaging and persistent mid. lower mid quadrant abd pain Comparison: CT abdomen pelvis, 09/25/2022 DLP: 542.[address] scans at [facility] use at least one of these dose optimization techniques: automated e xposure control; mA and/or kV adjustment per patient size (includes targeted exams where dose is matc hed to clinical indication); or iterative reconstruction. Findings: The lower lungs show no nodules, masses or effusions. The gallbladder, spleen, adrenal glands and pancreas are normal. There are several low density lesion s in the liver which are probably unchanged cysts. The kidneys show equal bilateral contrast excretion with no cyst or masses. There are no renal calcif ications or hydronephrosis. The abdominal aorta is normal in size with calcification in the wall and a small mural thrombus. No appendicitis or diverticulitis is seen. Oral contrast is in the stomach and small bowel and there is no bowel dilatation. The bladder is unremarkable. No inguinal hernia is seen. The prostate is enlarged. The bones of the lower thorax, lumbar spine, pelvis, and hips demonstrate a chronic L1 compression fr acture. CT/CT abdomen pelvis w con* [id number] Impression: Negative for acute intra-abdominal or pelvic abnormalities.
[2023-02-06] MEDS: iohexol 350 mg/mL 500 mL Btl (per mL) IV (14:19)
[2023-02-06] MEDS: iohexol 350 mg/mL 500 mL Btl (per mL) PO (14:20)
== END 2023-02-06 12:57 | disposition home or self-care (01) ==
LOC: RAD 13:00
PROVIDERS: PCP Internal Medicine; Visit Provider Internal Medicine Hematology & Oncology
DX: C18.7 Malignant neoplasm of sigmoid colon (principal)
CPT/HCPCS: 74177; Q9967

== ENCOUNTER 2023-02-16 11:30 | Oncology outpatient (recurring) (ONCR) | payer MEDICARE, MEDICAID, SELFPAY ==
[2023-01-22 10:54] LABS: Basophils # 0.1 10^3/uL (0.0-0.1); Basophils % 0.6 %; Eosinophils # 0.2 10^3/uL (0.0-0.8); Eosinophils % 2.1 %; Hematocrit 42.7 % (42.0-52.0); Hemoglobin 15.1 g/dL (11.7-16.6); Lymphocytes # 2.6 10^3/uL (0.8-4.8); Lymphocytes % 32.2 %; Mean Corpuscular HGB Conc 35.4 g/dL (30.0-36.0); Mean Corpuscular Hemoglobin 30.1 pg (28.0-34.0); Mean Corpuscular Volume 85.1 fl (80-94); Mean Platelet Volume 9.8 fL (7.4-10.4); Monocytes # 0.8 10^3/uL (0.2-0.9); Monocytes % 9.9 %; Neutrophils # 4.39 10^3/uL (1.8-7.7); Neutrophils % 54.8 %; Nucleated Red Blood Cells % 0 %; Platelet Count 143 10^3/cmm (130-400); Red Blood Count 5.02 10^6/uL (4.1-5.3); Red Cell Distribution Width 14.4 % (12.1-15.1)
[2023-01-22 11:10] LABS: Alanine Aminotransferase 18 U/L (0-41); Albumin Level 3.9 g/dL (3.5-5.2); Alkaline Phosphatase 87 U/L (40-130); Anion Gap 14.2 (5-19); Aspartate Amino Transferase 16 U/L (0-40); Blood Urea Nitrogen 11 mg/dL (8-23); Calcium 8.6 mg/dL (8.5-10.5); Carbon Dioxide 25 mmol/L (22-29); Chloride 100 mmol/L (98-107); Globulin 2.8 g/dL (1.3-4.6); Glomerular Filtration Rate 113.2 mL/min (90-130); Glucose 106 mg/dL (65-115); Osmolality Calculated 280 mOsm/kg (285-295); Potassium 4.2 mmol/L (3.5-5.1); Sodium 135 mmol/L (136-145); Total Bilirubin 0.5 mg/dL (0.15-1.2); Total Protein 6.7 g/dL (6.6-8.7)
[2023-02-06 15:07] VITALS: BP 117/74; PULSE 74; RESP 18; TEMP 36.9; O2SAT 98
--- NOTE | 2023-02-06 15:21 | PC.NURSE ---
Sterile picc line dressing change done to the right upper arm with good blood return both lumens with 20ml normal saline flushed both lines. No complaints or discomfort. No reddness or drainage.mm
[2023-02-14 08:17] LABS: Basophils # 0.1 10^3/uL (0.0-0.1); Basophils % 0.7 %; Eosinophils # 0.5 10^3/uL (0.0-0.8); Eosinophils % 7.2 %; Hematocrit 45.3 % (42.0-52.0); Hemoglobin 15.5 g/dL (11.7-16.6); Lymphocytes # 2.5 10^3/uL (0.8-4.8); Lymphocytes % 36.9 %; Mean Corpuscular HGB Conc 34.2 g/dL (30.0-36.0); Mean Corpuscular Volume 87.8 fl (80-94); Mean Platelet Volume 9.6 fL (7.4-10.4); Monocytes # 0.6 10^3/uL (0.2-0.9); Monocytes % 8.2 %; Neutrophils # 3.19 10^3/uL (1.8-7.7); Neutrophils % 46.7 %; Nucleated Red Blood Cells % 0 %; Platelet Count 203 10^3/cmm (130-400); Red Blood Count 5.16 10^6/uL (4.1-5.3); Red Cell Distribution Width 15.5 % (12.1-15.1); White Blood Count 6.8 10^3/uL (4.0-10.0)
[2023-02-14 09:00] LABS: Alanine Aminotransferase 18 U/L (0-41); Albumin Level 4.1 g/dL (3.5-5.2); Alkaline Phosphatase 76 U/L (40-130); Anion Gap 16.2 (5-19); Aspartate Amino Transferase 16 U/L (0-40); Blood Urea Nitrogen 19 mg/dL (8-23); Calcium 8.9 mg/dL (8.5-10.5); Carbon Dioxide 23 mmol/L (22-29); Chloride 99 mmol/L (98-107); Globulin 2.8 g/dL (1.3-4.6); Glomerular Filtration Rate 113.2 mL/min (90-130); Glucose 82 mg/dL (65-115); Osmolality Calculated 279 mOsm/kg (285-295); Potassium 4.2 mmol/L (3.5-5.1); Sodium 134 mmol/L (136-145); Total Bilirubin 0.2 mg/dL (0.15-1.2); Total Protein 6.9 g/dL (6.6-8.7)
[2023-02-14] MEDS: dextrose 5% 250 ML 75 ML IV (10:39)
[2023-02-14] MEDS: palonosetron 0.25 mg/5 mL SDV IVP (10:39)
[2023-02-14] MEDS: leucovorin 540 MG in dextrose 5% 250 ML 62.5 MG IV (11:21)
[2023-02-14] MEDS: OXALIPLATIN IV (11:21)
[2023-02-14] MEDS: DEXTROSE 5% IV (11:21)
[2023-02-14] MEDS: SODIUM CHLORIDE IV (14:50)
[2023-02-14] MEDS: FLUOROURACIL IV (14:50)
[2023-02-14] MEDS: ELASTOMERIC PUMP PUMP IV (14:50)
[2023-02-14 16:22] VITALS: BP 136/84; PULSE 66; RESP 16; TEMP 36.6; O2SAT 96
[2023-02-16 11:46] VITALS: BP 104/63; PULSE 88; RESP 16; TEMP 36.9
--- NOTE | 2023-02-16 11:54 | PC.NURSE ---
Both PICC lines flushed per protocol. There is some redness to the top of the arm where the bioclusive is. Patient and were told to watch for increasing redness, warm to touch, pain, and or running a temperture to go to the ER. Patient and acknowledged understanding and had no questions or concerns. PICC line dressing change by Don Vargas RN on Sunday. Patient to return next Sunday for PICC line dressing change.
== END 2023-02-16 23:59 | disposition home or self-care (01) ==
PROVIDERS: Internal Medicine Hematology & Oncology; PCP Internal Medicine; Visit Provider Internal Medicine Medical Oncology
DX: Z95.828 Presence of other vascular implants and grafts; C18.7 Malignant neoplasm of sigmoid colon; Z45.2 Encounter for adjustment and management of vascular access device
CPT/HCPCS: 36592; 74177; 80053; 85025; 96368; 96375; 96411; 96413; 96416; 96523; 99214; J0640; J1100; J2469; J7060; J9190; J9263; Q9967

== ENCOUNTER → 2023-03-14 07:51 | Outpatient (BNVA) | payer MEDICARE, MEDICAID, SELFPAY | PROVIDERS: PCP Internal Medicine; Visit Provider Nurse Practitioner Family | DX: C18.7 Malignant neoplasm of sigmoid colon (principal) | CPT/HCPCS: 99214 ==

== ENCOUNTER 2023-03-16 11:00 | Oncology outpatient (recurring) (ONCR) | payer MEDICARE, MEDICAID, SELFPAY ==
[2023-02-21 09:35] VITALS: BP 108/73; PULSE 96; RESP 16; TEMP 36.9; O2SAT 96
[2023-02-21 10:13] LABS: Basophils % 0.6 %; Eosinophils # 0.3 10^3/uL (0.0-0.8); Eosinophils % 4.7 %; Hematocrit 45.6 % (42.0-52.0); Hemoglobin 15.8 g/dL (11.7-16.6); Lymphocytes # 2.1 10^3/uL (0.8-4.8); Mean Corpuscular HGB Conc 34.6 g/dL (30.0-36.0); Mean Corpuscular Hemoglobin 30.4 pg (28.0-34.0); Mean Corpuscular Volume 87.9 fl (80-94); Mean Platelet Volume 9.6 fL (7.4-10.4); Monocytes # 0.6 10^3/uL (0.2-0.9); Monocytes % 8.2 %; Neutrophils # 3.84 10^3/uL (1.8-7.7); Neutrophils % 56.2 %; Nucleated Red Blood Cells % 0 %; Platelet Count 227 10^3/cmm (130-400); Red Blood Count 5.19 10^6/uL (4.1-5.3); Red Cell Distribution Width 15.5 % (12.1-15.1); White Blood Count 6.8 10^3/uL (4.0-10.0)
[2023-02-21 10:38] LABS: Alanine Aminotransferase 14 U/L (0-41); Albumin Level 3.7 g/dL (3.5-5.2); Alkaline Phosphatase 74 U/L (40-130); Anion Gap 14.1 (5-19); Aspartate Amino Transferase 15 U/L (0-40); Blood Urea Nitrogen 14 mg/dL (8-23); Calcium 8.9 mg/dL (8.5-10.5); Carbon Dioxide 23 mmol/L (22-29); Chloride 102 mmol/L (98-107); Globulin 3.1 g/dL (1.3-4.6); Glucose 104 mg/dL (65-115); Osmolality Calculated 281 mOsm/kg (285-295); Potassium 4.1 mmol/L (3.5-5.1); Sodium 135 mmol/L (136-145); Total Bilirubin 0.5 mg/dL (0.15-1.2); Total Protein 6.8 g/dL (6.6-8.7)
[2023-02-28 08:44] LABS: Basophils % 0.4 %; Eosinophils # 0.2 10^3/uL (0.0-0.8); Eosinophils % 3.4 %; Hematocrit 45.4 % (42.0-52.0); Hemoglobin 15.6 g/dL (11.7-16.6); Lymphocytes # 2.4 10^3/uL (0.8-4.8); Lymphocytes % 33.6 %; Mean Corpuscular HGB Conc 34.4 g/dL (30.0-36.0); Mean Corpuscular Hemoglobin 30.1 pg (28.0-34.0); Mean Corpuscular Volume 87.6 fl (80-94); Mean Platelet Volume 9.6 fL (7.4-10.4); Monocytes # 0.6 10^3/uL (0.2-0.9); Monocytes % 8.2 %; Neutrophils # 3.86 10^3/uL (1.8-7.7); Neutrophils % 54.3 %; Nucleated Red Blood Cells % 0 %; Platelet Count 229 10^3/cmm (130-400); Red Blood Count 5.18 10^6/uL (4.1-5.3); Red Cell Distribution Width 15.6 % (12.1-15.1); White Blood Count 7.1 10^3/uL (4.0-10.0)
[2023-02-28 09:01] VITALS: BP 108/68; PULSE 82; TEMP 36.9; O2SAT 95
--- NOTE | 2023-02-28 09:03 | PC.NURSE ---
PICC line dressing change completed via sterile technique. No redness or irritation noted around site. Pt has slight redness around edge of tegaderm. Pt tolerated well.
[2023-02-28 09:14] LABS: Alanine Aminotransferase 15 U/L (0-41); Albumin Level 4.1 g/dL (3.5-5.2); Alkaline Phosphatase 69 U/L (40-130); Aspartate Amino Transferase 17 U/L (0-40); Blood Urea Nitrogen 16 mg/dL (8-23); Calcium 8.6 mg/dL (8.5-10.5); Carbon Dioxide 24 mmol/L (22-29); Chloride 105 mmol/L (98-107); Globulin 2.6 g/dL (1.3-4.6); Glomerular Filtration Rate 113.2 mL/min (90-130); Glucose 109 mg/dL (65-115); Osmolality Calculated 290 mOsm/kg (285-295); Sodium 139 mmol/L (136-145); Total Bilirubin 0.4 mg/dL (0.15-1.2); Total Protein 6.7 g/dL (6.6-8.7)
[2023-02-28 09:39] LABS: Prostate Specific Antigen 0.425 ng/mL (0-4)
[2023-02-28] MEDS: dextrose 5% 250 ML 100 ML IV (11:45)
[2023-02-28] MEDS: palonosetron 0.25 mg/5 mL SDV IVP (11:48)
[2023-02-28] MEDS: leucovorin 720 MG in dextrose 5% 250 ML 62.5 MG IV (12:51)
[2023-02-28] MEDS: fluorouraciL 4,300 MG, elastomeric pump 1 PUMP in sodium chloride 0.9% (100 ml) 6 ML IV (16:00)
[2023-02-28 16:12] VITALS: BP 109/71; PULSE 65; TEMP 36.8
[2023-03-02 10:40] VITALS: BP 105/64; PULSE 82; RESP 16; TEMP 36.9; O2SAT 96
[2023-03-07 12:50] VITALS: BP 120/75; PULSE 108; RESP 16; TEMP 36.4; O2SAT 95
[2023-03-07 13:15] LABS: Basophils % 0.4 %; Eosinophils # 0.1 10^3/uL (0.0-0.8); Eosinophils % 2.4 %; Hematocrit 46.4 % (42.0-52.0); Hemoglobin 16.1 g/dL (11.7-16.6); Lymphocytes # 2.1 10^3/uL (0.8-4.8); Lymphocytes % 39.4 %; Mean Corpuscular HGB Conc 34.7 g/dL (30.0-36.0); Mean Corpuscular Hemoglobin 30.4 pg (28.0-34.0); Mean Corpuscular Volume 87.7 fl (80-94); Mean Platelet Volume 9.7 fL (7.4-10.4); Monocytes # 0.5 10^3/uL (0.2-0.9); Neutrophils # 2.58 10^3/uL (1.8-7.7); Neutrophils % 48.6 %; Nucleated Red Blood Cells % 0 %; Platelet Count 211 10^3/cmm (130-400); Red Blood Count 5.29 10^6/uL (4.1-5.3); White Blood Count 5.3 10^3/uL (4.0-10.0)
[2023-03-07 13:35] LABS: Alanine Aminotransferase 15 U/L (0-41); Alkaline Phosphatase 66 U/L (40-130); Aspartate Amino Transferase 19 U/L (0-40); Blood Urea Nitrogen 11 mg/dL (8-23); Calcium 8.8 mg/dL (8.5-10.5); Carbon Dioxide 22 mmol/L (22-29); Chloride 99 mmol/L (98-107); Globulin 2.8 g/dL (1.3-4.6); Glomerular Filtration Rate 113.2 mL/min (90-130); Glucose 160 mg/dL (65-115); Osmolality Calculated 281 mOsm/kg (285-295); Sodium 134 mmol/L (136-145); Total Bilirubin 0.5 mg/dL (0.15-1.2); Total Protein 6.8 g/dL (6.6-8.7)
[2023-03-07 13:36] LABS: Anion Gap 17.1 (5-19); Potassium 4.1 mmol/L (3.5-5.1)
[2023-03-14 08:26] LABS: Basophils % 0.4 %; Eosinophils # 0.3 10^3/uL (0.0-0.8); Eosinophils % 3.7 %; Hematocrit 46.5 % (42.0-52.0); Hemoglobin 16.3 g/dL (11.7-16.6); Lymphocytes # 2.3 10^3/uL (0.8-4.8); Lymphocytes % 34.3 %; Mean Corpuscular HGB Conc 35.1 g/dL (30.0-36.0); Mean Corpuscular Volume 88.6 fl (80-94); Mean Platelet Volume 9.7 fL (7.4-10.4); Monocytes # 0.6 10^3/uL (0.2-0.9); Monocytes % 9.5 %; Neutrophils # 3.52 10^3/uL (1.8-7.7); Nucleated Red Blood Cells % 0 %; Platelet Count 209 10^3/cmm (130-400); Red Blood Count 5.25 10^6/uL (4.1-5.3); Red Cell Distribution Width 15.2 % (12.1-15.1); White Blood Count 6.8 10^3/uL (4.0-10.0)
[2023-03-14] MEDS: alteplase 1 mg/mL SDV 2 mL 2 MG INTRACATH ×2 (08:28)
[2023-03-14 08:55] VITALS: BP 125/78; PULSE 71; RESP 16; TEMP 37.1; O2SAT 98
[2023-03-14 08:59] LABS: Alanine Aminotransferase 20 U/L (0-41); Albumin Level 4.1 g/dL (3.5-5.2); Alkaline Phosphatase 68 U/L (40-130); Anion Gap 13.2 (5-19); Aspartate Amino Transferase 19 U/L (0-40); Blood Urea Nitrogen 12 mg/dL (8-23); Carbon Dioxide 26 mmol/L (22-29); Chloride 104 mmol/L (98-107); Globulin 2.7 g/dL (1.3-4.6); Glomerular Filtration Rate 113.2 mL/min (90-130); Glucose 95 mg/dL (65-115); Osmolality Calculated 288 mOsm/kg (285-295); Potassium 4.2 mmol/L (3.5-5.1); Sodium 139 mmol/L (136-145); Total Bilirubin 0.4 mg/dL (0.15-1.2); Total Protein 6.8 g/dL (6.6-8.7)
[2023-03-14] MEDS: dextrose 5% 250 ML 100 ML IV (09:55)
[2023-03-14] MEDS: palonosetron 0.25 mg/5 mL SDV IVP (09:55)
[2023-03-14] MEDS: leucovorin 720 MG in dextrose 5% 250 ML 62.5 MG IV (10:35)
[2023-03-14] MEDS: fluorouraciL 4,300 MG, elastomeric pump 1 PUMP in sodium chloride 0.9% (100 ml) 6 ML IV (13:52)
[2023-03-14 14:02] VITALS: BP 112/69; PULSE 76; TEMP 37; O2SAT 94
[2023-03-16 11:25] VITALS: BP 120/85; PULSE 84; TEMP 37.2; O2SAT 96
== END 2023-03-18 23:59 | disposition home or self-care (01) ==
PROVIDERS: Internal Medicine Hematology & Oncology; Nurse Practitioner Family; PCP Internal Medicine; Visit Provider Internal Medicine Medical Oncology
DX: Z45.2 Encounter for adjustment and management of vascular access device (principal)
CPT/HCPCS: 36593; 80053; 84153; 85025; 96366; 96367; 96368; 96375; 96411; 96413; 96415; 96416; 96417; 96523; 99213; 99214; J0640; J1100; J1642; J2469; J2997; J7060; J9190; J9263

== ENCOUNTER → 2023-04-11 08:05 | Outpatient (BNVA) | payer MEDICARE, MEDICAID, SELFPAY | PROVIDERS: PCP Internal Medicine; Visit Provider Nurse Practitioner | DX: C18.7 Malignant neoplasm of sigmoid colon (principal) | CPT/HCPCS: 99214 ==

== ENCOUNTER 2023-04-18 14:00 | Oncology outpatient (recurring) (ONCR) | payer MEDICARE, MEDICAID, SELFPAY ==
[2023-03-21 11:00] VITALS: BP 177/61; PULSE 91; PULSE 98; RESP 16; TEMP 33.9; TEMP 36.7; O2SAT 99
[2023-03-21 11:35] LABS: Basophils % 0.7 %; Eosinophils # 0.3 10^3/uL (0.0-0.8); Eosinophils % 4.3 %; Hematocrit 45.2 % (42.0-52.0); Hemoglobin 15.8 g/dL (11.7-16.6); Lymphocytes # 2.7 10^3/uL (0.8-4.8); Lymphocytes % 45.2 %; Mean Corpuscular Hemoglobin 30.6 pg (28.0-34.0); Mean Corpuscular Volume 87.4 fl (80-94); Mean Platelet Volume 9.8 fL (7.4-10.4); Monocytes # 0.7 10^3/uL (0.2-0.9); Monocytes % 11.1 %; Neutrophils # 2.25 10^3/uL (1.8-7.7); Neutrophils % 38.4 %; Nucleated Red Blood Cells % 0 %; Platelet Count 196 10^3/cmm (130-400); Red Blood Count 5.17 10^6/uL (4.1-5.3); Red Cell Distribution Width 14.5 % (12.1-15.1); White Blood Count 5.9 10^3/uL (4.0-10.0)
[2023-03-21 12:54] LABS: Alanine Aminotransferase 23 U/L (0-41); Albumin Level 3.9 g/dL (3.5-5.2); Alkaline Phosphatase 71 U/L (40-130); Aspartate Amino Transferase 19 U/L (0-40); Blood Urea Nitrogen 13 mg/dL (8-23); Carbon Dioxide 23 mmol/L (22-29); Chloride 97 mmol/L (98-107); Globulin 2.8 g/dL (1.3-4.6); Glomerular Filtration Rate 135.2 mL/min (90-130); Glucose 82 mg/dL (65-115); Osmolality Calculated 271 mOsm/kg (285-295); Sodium 131 mmol/L (136-145); Total Bilirubin 0.3 mg/dL (0.15-1.2); Total Protein 6.7 g/dL (6.6-8.7)
--- NOTE | 2023-03-23 11:33 | PC.NURSE ---
Pt in infusion suite due to picc dressing causing irritation to skin. Removed tegaderm and biopatch. Pt has open wound to arm where edge of dressing was. Cleaned whole area with chloraprep. Replaced biopatch and tegaderm. Placed tegaderm below open area. Dr. Dumont assessed pt. Dr. Dumont states it does not appear to be infected. Recommended pt put hydrocortisone cream on open area. No redness or irritation noted around picc line opening. JW
[2023-03-28 08:15] VITALS: BP 121/75; PULSE 81; TEMP 37.1; O2SAT 97
[2023-03-28 08:20] LABS: Basophils % 0.4 %; Eosinophils # 0.3 10^3/uL (0.0-0.8); Eosinophils % 3.7 %; Hematocrit 45.6 % (42.0-52.0); Hemoglobin 15.6 g/dL (11.7-16.6); Lymphocytes # 2.5 10^3/uL (0.8-4.8); Lymphocytes % 36.7 %; Mean Corpuscular HGB Conc 34.2 g/dL (30.0-36.0); Mean Corpuscular Hemoglobin 30.2 pg (28.0-34.0); Mean Corpuscular Volume 88.2 fl (80-94); Mean Platelet Volume 9.7 fL (7.4-10.4); Monocytes # 0.7 10^3/uL (0.2-0.9); Monocytes % 10.5 %; Neutrophils # 3.27 10^3/uL (1.8-7.7); Neutrophils % 48.4 %; Nucleated Red Blood Cells % 0 %; Platelet Count 174 10^3/cmm (130-400); Red Blood Count 5.17 10^6/uL (4.1-5.3); Red Cell Distribution Width 14.6 % (12.1-15.1); White Blood Count 6.8 10^3/uL (4.0-10.0)
[2023-03-28 08:34] LABS: Alanine Aminotransferase 22 U/L (0-41); Albumin Level 3.8 g/dL (3.5-5.2); Alkaline Phosphatase 78 U/L (40-130); Blood Urea Nitrogen 15 mg/dL (8-23); Carbon Dioxide 24 mmol/L (22-29); Chloride 102 mmol/L (98-107); Glucose 146 mg/dL (65-115); Osmolality Calculated 285 mOsm/kg (285-295); Sodium 136 mmol/L (136-145); Total Bilirubin 0.4 mg/dL (0.15-1.2); Total Protein 6.8 g/dL (6.6-8.7)
[2023-03-28 08:37] LABS: Anion Gap 14.4 (5-19); Aspartate Amino Transferase 23 U/L (0-40); Potassium 4.4 mmol/L (3.5-5.1)
[2023-03-28] MEDS: dextrose 5% 250 ML 100 ML IV (09:45)
[2023-03-28] MEDS: palonosetron 0.25 mg/5 mL SDV IVP (09:46)
[2023-03-28] MEDS: leucovorin 720 MG in dextrose 5% 250 ML 62.5 MG IV (10:16)
[2023-03-28] MEDS: fluorouraciL 4,300 MG, elastomeric pump 1 PUMP in sodium chloride 0.9% (100 ml) 6 ML IV (13:33)
[2023-03-28 13:40] VITALS: BP 110/72; PULSE 74; RESP 18; TEMP 36.8; O2SAT 95
[2023-03-30 11:00] VITALS: BP 107/68; PULSE 105; RESP 18; TEMP 37.1; O2SAT 96
--- NOTE | 2023-04-04 16:07 | PC.NURSE ---
PICC line dressing change completed via sterile technique. Pt tolerated well. No redness or irritation noted. - JW
[2023-04-11 08:17] LABS: Basophils % 0.2 %; Eosinophils # 0.2 10^3/uL (0.0-0.8); Eosinophils % 2.2 %; Hematocrit 45.3 % (42.0-52.0); Hemoglobin 15.8 g/dL (11.7-16.6); Lymphocytes # 1.9 10^3/uL (0.8-4.8); Lymphocytes % 23.4 %; Mean Corpuscular HGB Conc 34.9 g/dL (30.0-36.0); Mean Corpuscular Hemoglobin 31.1 pg (28.0-34.0); Mean Corpuscular Volume 89.2 fl (80-94); Mean Platelet Volume 9.7 fL (7.4-10.4); Monocytes # 0.7 10^3/uL (0.2-0.9); Monocytes % 8.4 %; Neutrophils # 5.39 10^3/uL (1.8-7.7); Neutrophils % 65.6 %; Nucleated Red Blood Cells % 0 %; Platelet Count 177 10^3/cmm (130-400); Red Blood Count 5.08 10^6/uL (4.1-5.3); Red Cell Distribution Width 13.9 % (12.1-15.1); White Blood Count 8.2 10^3/uL (4.0-10.0)
[2023-04-11 08:41] LABS: Alanine Aminotransferase 22 U/L (0-41); Albumin Level 3.7 g/dL (3.5-5.2); Alkaline Phosphatase 76 U/L (40-130); Aspartate Amino Transferase 19 U/L (0-40); Blood Urea Nitrogen 14 mg/dL (8-23); Calcium 9.2 mg/dL (8.5-10.5); Carbon Dioxide 24 mmol/L (22-29); Chloride 101 mmol/L (98-107); Glomerular Filtration Rate 135.2 mL/min (90-130); Glucose 117 mg/dL (65-115); Osmolality Calculated 280 mOsm/kg (285-295); Sodium 134 mmol/L (136-145); Total Bilirubin 0.3 mg/dL (0.15-1.2); Total Protein 6.7 g/dL (6.6-8.7)
[2023-04-11] MEDS: dextrose 5% 250 ML 75 ML IV (10:27)
[2023-04-11] MEDS: palonosetron 0.25 mg/5 mL SDV IVP (10:28)
[2023-04-11] MEDS: leucovorin 720 MG in dextrose 5% 250 ML 62.5 MG IV (11:12)
[2023-04-11] MEDS: fluorouraciL 4,300 MG, elastomeric pump 1 PUMP in sodium chloride 0.9% (100 ml) 6 ML IV (14:32)
[2023-04-11 15:10] VITALS: BP 124/78; PULSE 68; RESP 18; TEMP 36.6; O2SAT 98
[2023-04-13 10:25] VITALS: BP 109/72; PULSE 86; RESP 18; TEMP 36.7; O2SAT 95
[2023-04-18 14:02] VITALS: BP 110/67; PULSE 88; RESP 18; TEMP 37.1; O2SAT 95
== END 2023-04-18 23:59 | disposition home or self-care (01) ==
PROVIDERS: Internal Medicine Hematology & Oncology; Nurse Practitioner Family; PCP Internal Medicine; Visit Provider Internal Medicine Medical Oncology
DX: C18.7 Malignant neoplasm of sigmoid colon (principal); C77.8 Secondary and unspecified malignant neoplasm of lymph nodes of multiple regions
CPT/HCPCS: 36592; 80053; 85025; 96367; 96368; 96374; 96375; 96376; 96413; 96415; 96416; 96417; 96523; 99214; J0640; J1100; J1642; J2469; J7060; J9190; J9263

== ENCOUNTER → 2023-05-09 07:46 | Outpatient (BNVA) | payer MEDICARE, MEDICAID, SELFPAY | PROVIDERS: PCP Internal Medicine; Visit Provider Internal Medicine Hematology & Oncology | DX: C18.7 Malignant neoplasm of sigmoid colon (principal); C77.8 Secondary and unspecified malignant neoplasm of lymph nodes of multiple regions; R53.0 Neoplastic (malignant) related fatigue; R11.0 Nausea; Z79.899 Other long term (current) drug therapy; Z87.891 Personal history of nicotine dependence | CPT/HCPCS: 99214 ==

== ENCOUNTER 2023-05-16 14:45 | Oncology outpatient (recurring) (ONCR) | payer MEDICARE, MEDICAID, SELFPAY ==
[2023-04-25 07:50] VITALS: BP 122/78; PULSE 74; RESP 18; TEMP 36.6; O2SAT 98
[2023-04-25 08:04] LABS: Basophils % 0.6 %; Eosinophils # 0.2 10^3/uL (0.0-0.8); Hematocrit 44.8 % (42.0-52.0); Hemoglobin 15.4 g/dL (11.7-16.6); Lymphocytes # 1.8 10^3/uL (0.8-4.8); Lymphocytes % 27.6 %; Mean Corpuscular HGB Conc 34.4 g/dL (30.0-36.0); Mean Corpuscular Hemoglobin 30.5 pg (28.0-34.0); Mean Corpuscular Volume 88.7 fl (80-94); Mean Platelet Volume 9.6 fL (7.4-10.4); Monocytes # 0.6 10^3/uL (0.2-0.9); Monocytes % 9.3 %; Neutrophils # 3.77 10^3/uL (1.8-7.7); Neutrophils % 59.3 %; Nucleated Red Blood Cells % 0 %; Platelet Count 179 10^3/cmm (130-400); Red Blood Count 5.05 10^6/uL (4.1-5.3); Red Cell Distribution Width 13.6 % (12.1-15.1); White Blood Count 6.4 10^3/uL (4.0-10.0)
[2023-04-25 08:45] LABS: Alanine Aminotransferase 21 U/L (0-41); Albumin Level 3.7 g/dL (3.5-5.2); Alkaline Phosphatase 76 U/L (40-130); Aspartate Amino Transferase 18 U/L (0-40); Blood Urea Nitrogen 12 mg/dL (8-23); Calcium 8.8 mg/dL (8.5-10.5); Carbon Dioxide 23 mmol/L (22-29); Chloride 103 mmol/L (98-107); Globulin 3.1 g/dL (1.3-4.6); Glomerular Filtration Rate 113.2 mL/min (90-130); Glucose 134 mg/dL (65-115); Osmolality Calculated 284 mOsm/kg (285-295); Sodium 136 mmol/L (136-145); Total Bilirubin 0.3 mg/dL (0.15-1.2); Total Protein 6.8 g/dL (6.6-8.7)
[2023-04-25] MEDS: dextrose 5% 250 ML 100 ML IV (09:57)
[2023-04-25] MEDS: palonosetron 0.25 mg/5 mL SDV IVP (09:59)
[2023-04-25] MEDS: leucovorin 680 MG in dextrose 5% 250 ML 62.5 MG IV (10:34)
[2023-04-25] MEDS: oxaliplatin 100 MG, oxaliplatin 44 MG in dextrose 5% 250 ML 69.7 MG IV (10:35)
[2023-04-25 13:32] VITALS: BP 114/71; PULSE 73; TEMP 36.8; O2SAT 94
[2023-04-25] MEDS: fluorouraciL 4,100 MG, elastomeric pump 1 PUMP in sodium chloride 0.9% (100 ml) 10 ML IV (13:34)
--- NOTE | 2023-04-25 16:18 | PC.NURSE ---
sterile dressing change to the right upper arm picc line using chloraprep with no reddness or drainage noted bioclusive reapplied.mm
[2023-04-27] MEDS: sodium chloride 0.9% 1,000 ML 999 ML IV (11:26)
[2023-04-27 11:27] VITALS: BP 115/69; PULSE 76; RESP 18; TEMP 36.8; O2SAT 95
[2023-04-27] MEDS: famotidine 20 mg/2 mL INJ IVP (11:31)
[2023-04-27] MEDS: ondansetron 2 mg/ML SDV 2 mL 8 MG IVP (11:34)
[2023-04-27 13:12] VITALS: BP 126/73; PULSE 75; RESP 18; TEMP 36.9; O2SAT 97
[2023-05-02 10:06] VITALS: BP 118/80; PULSE 93; RESP 18; TEMP 37.1; O2SAT 93
[2023-05-09 07:47] VITALS: BP 121/78; PULSE 98; RESP 18; TEMP 36.9; O2SAT 96
[2023-05-09 08:05] LABS: Basophils # 0.1 10^3/uL (0.0-0.1); Basophils % 0.8 %; Eosinophils # 0.2 10^3/uL (0.0-0.8); Eosinophils % 2.7 %; Hematocrit 44.2 % (42.0-52.0); Hemoglobin 15.3 g/dL (11.7-16.6); Lymphocytes % 30.4 %; Mean Corpuscular HGB Conc 34.6 g/dL (30.0-36.0); Mean Corpuscular Hemoglobin 30.5 pg (28.0-34.0); Mean Corpuscular Volume 88.2 fl (80-94); Mean Platelet Volume 9.6 fL (7.4-10.4); Monocytes # 0.7 10^3/uL (0.2-0.9); Monocytes % 10.8 %; Neutrophils % 54.8 %; Nucleated Red Blood Cells % 0 %; Platelet Count 179 10^3/cmm (130-400); Red Blood Count 5.01 10^6/uL (4.1-5.3); Red Cell Distribution Width 13.6 % (12.1-15.1); White Blood Count 6.6 10^3/uL (4.0-10.0)
[2023-05-09 08:20] LABS: Alanine Aminotransferase 20 U/L (0-41); Albumin Level 3.6 g/dL (3.5-5.2); Alkaline Phosphatase 76 U/L (40-130); Anion Gap 12.8 (5-19); Aspartate Amino Transferase 18 U/L (0-40); Blood Urea Nitrogen 16 mg/dL (8-23); Calcium 8.3 mg/dL (8.5-10.5); Carbon Dioxide 23 mmol/L (22-29); Chloride 103 mmol/L (98-107); Globulin 3.2 g/dL (1.3-4.6); Glucose 129 mg/dL (65-115); Osmolality Calculated 283 mOsm/kg (285-295); Potassium 3.8 mmol/L (3.5-5.1); Sodium 135 mmol/L (136-145); Total Bilirubin 0.4 mg/dL (0.15-1.2); Total Protein 6.8 g/dL (6.6-8.7)
[2023-05-09 10:30] VITALS: BMI 29.2
[2023-05-09] MEDS: dextrose 5% 250 ML 75 ML IV (10:56)
[2023-05-09] MEDS: palonosetron 0.25 mg/5 mL SDV IVP (11:01)
[2023-05-09] MEDS: leucovorin 720 MG in dextrose 5% 250 ML 62.5 MG IV (11:40)
[2023-05-09] MEDS: fluorouraciL 4,300 MG, elastomeric pump 1 PUMP in sodium chloride 0.9% (100 ml) 6 ML IV (15:39)
[2023-05-09 15:45] VITALS: PULSE 96; RESP 18; TEMP 36.7; O2SAT 97
[2023-05-11 11:30] VITALS: BP 109/74; PULSE 88; TEMP 37.3; O2SAT 93
[2023-05-16 14:58] VITALS: BP 106/71; PULSE 100; RESP 18; TEMP 37.4
== END 2023-05-18 23:59 | disposition home or self-care (01) ==
PROVIDERS: Nurse Practitioner; PCP Internal Medicine; Visit Provider Internal Medicine Medical Oncology
DX: C18.7 Malignant neoplasm of sigmoid colon (principal); C77.8 Secondary and unspecified malignant neoplasm of lymph nodes of multiple regions; Z79.899 Other long term (current) drug therapy; Z87.891 Personal history of nicotine dependence
CPT/HCPCS: 80053; 85025; 96361; 96365; 96367; 96368; 96375; 96413; 96415; 96416; 96523; 99214; J0640; J1100; J1642; J2405; J2469; J3490; J7030; J7060; J9190; J9263

== ENCOUNTER 2023-05-23 18:13 | Inpatient (IN) | payer MEDICARE, MEDICAID, SELFPAY ==
[2023-05-23] VITALS (11 sets, daily range): BP systolic 96–118; BP diastolic 59–79; PULSE 73–119; RESP 18–19; TEMP 36.8–38.5; O2SAT 96–99; BMI 29.2
--- NOTE | 2023-05-23 18:28 | ED_ITS ---
HPI - Allergic Reaction General: Chief complaint: Allergic Reaction Stated complaint: nausea Time Seen by Provider: 05/23/23 18:28 History of Present Illness: HPI narrative: This patient is a 67 year old presenting with chills, muscle aches and malaise after a chemo treatment today. This is his 8th treatment, and he normally gets nausea and fatigue afterward but this is different. He took his nausea medicine without any relief. He reports that he had a fever several days ago. He also reports that he had an episode of visual changes associated with a strange feeling in the back of his neck that lasted about 5 minutes. He says that he discussed it with his cancer doctor and he told him it was probably a stroke. It doesn't sound like he had any kind of imaging or work up and has no symptoms now. He has an infusion going through a picc line currently. He has no new medications. The chemo agents are not new. He denies cough, shortness of sukhi ath, vomiting or diarrhea. No urinary symptoms. No skin sores. No sore throat, no neck pain, no headache today. PFS ED PFSH: Medical History Cancer of sigmoid colon Colon cancer No pertinent past medical history Surgical History No pertinent past surgical history Social History Smoking and tobacco status: current every day smoker Alcohol intake: current Alcohol intake frequency: holidays/special occasions only Physical Exam Const: COMMON NORMALS: patient oriented x3, no limitations and alert GENERAL APPEARANCE: cooperative and other (uncomfortable) HENMT: HEAD & SCALP: normal to inspection FACE & SINUS: normal facial exam Eye: GENERAL EYE: appearance normal, both eyes and all related structures Neck/C-Spine: COMMON NORMALS: supple, no meningeal signs and no JVD Chest: COMMONS NORMALS: normal inspection of the chest Resp: COMMON NORMALS: normal respiratory effort, No use of accessory muscles and clear to auscultation bilaterally AUSCULTATION: clear to auscultation bilaterally Cardio: COMMON NORMALS: no JVD, regular rate, regular rhythm and No murmurs present (Cardio) RATE: regular rate and tachycardic RHYTHM: regular rhythm GI: COMMON NORMALS: Normal to inspection, nondistended, normoactive bowel sounds present, Soft to palpation and non-tender INSPECTION: Yes normal to inspection AUSCULTATION: Yes normoactive bowel sounds PALPATION: Yes Soft to palpation Back/Pelvis: COMMON NORMALS: thoracic and lumbar spine normal to inspection Extremity: COMMON NORMALS: normal to inspection Neuro: COMMON NORMALS: patient oriented x3, moves all extremities, no focal motor deficits and no sensory deficits noted SENSORIUM/ORIENTATION: Yes alert MENINGEAL SIGNS: Yes no meningeal signs Psych: COMMON NORMALS: mental status grossly normal, cooperative and normal affect Skin: COMMON NORMALS: no rashes or lesions noted and turgor normal GENERAL SKIN EXAM: no rashes or lesions noted and turgor normal Course Vital Signs: Vital signs: Vital Signs Temperature 99.0 F 05/23/23 21:13 Pulse Rate 73 05/23/23 23:10 Respiratory Rate 18 05/23/23 20:17 Blood Pressure 97/60 05/23/23 23:10 Pulse Oximetry 98 05/23/23 23:10 Oxygen Delivery Me thod Room Air 05/23/23 23:10 MDM - Allergic Reaction Medical Decision Making Patient on chemotherapy, presenting with fever, shaking chills and rigors, muscle pain. He has not had reactions like this to prior chemo treatments and do not think this is an allergic reaction to the infusion. It is noted that his PICC line is up in his neck and likely looped in the jugular vein. PICC line was placed 7 months ago per patient. He was started on the sepsis protocol with IVF, IV abx, blood cultures, lactate. Tylenol was given for fever. I anticipate admission tonight. Discussed with Dr. Dumont - he wants patient admitted - concern for PICC line infection. Discussed with Dr. Burton - will admit. Rocephin and vanc given in the ED. Discussed plan of care and findings with the patient and his . Lab Data 05/23/23 19:10 05/23/23 19:10 Radiology Impressions Chest X-Ray 05/23/23 18:49 IMPRESSION: 1. Minimal basilar atelectasis. No infiltrate. 2. PICC line on the right with distal aspect of the catheter extending cephalad into the right neck likely coiled in the right internal jugular vein, and not within the superior vena cava. Laboratory Results WBC 11.5 10^3/uL (4.0-10.0) H 05/23/23 19:10 RBC 5.59 10^6/uL (4.1-5.3) H 05/23/23 19:10 Hgb 17.1 g/dL (11.7-16.6) H 05/23/23 19:10 Hct 49.2 % (42.0-52.0) 05/23/23 19:10 MCV 88.0 fl (80-94) 05/23/23 19:10 MCH 30.6 pg (28.0-34.0) 05/23/23 19:10 MCHC 34.8 g/dL (30.0-36.0) 05/23/23 19:10 RDW 13.9 % (12.1-15.1) 05/23/23 19:10 Plt Count 173 10^3/cmm (130-400) 05/23/23 19:10 MPV 9.2 fL (7.4-10.4) 05/23/23 19:10 Neut % (Auto) 92.3 % 05/23/23 19:10 Lymph % (Auto) 2.0 % 05/23/23 19:10 [place] % (Auto) 5.1 % 05/23/23 19:10 Eos % (Auto) 0.1 % 05/23/23 19:10 Baso % (Auto) 0.2 % 05/23/23 19:10 Neut # (Auto) 10.58 10^3/uL (1.8-7.7) H 05/23/23 19:10 Lymph # (Auto) 0.2 10^3/uL (0.8-4.8) L 05/23/23 19:10 [place] # (Auto) 0.6 10^3/uL (0.2-0.9) 05/23/23 19:10 Eos # (Auto) 0.0 10^3/uL (0.0-0.8) 05/23/23 19:10 Baso # (Auto) 0.0 10^3/uL (0.0-0.1) 05/23/23 19:10 Nucleated RBC % (auto) 0 % 05/23/23 19:10 Nucleated RBCs # 0.0 /100WBC 05/23/23 19:10 Sodium 135 mmol/L (136-145) L 05/23/23 19:10 Potassium 5.3 mmol/L (3.5-5.1) H 05/23/23 19:10 Chloride 101 mmol/L (98-107) 05/23/23 19:10 Carbon Dioxide 21 mmol/L (22-29) L 05/23/23 19:10 Anion Gap 18.3 (5-19) 05/23/23 19:10 BUN 17 mg/dL (8-23) 05/23/23 19:10 Creatinine 0.8 mg/dL (0.7-1.2) 05/23/23 19:10 GFR Calculation 97.0 mL/min (90-130) 05/23/23 19:10 Glucose 113 mg/dL (65-115) 05/23/23 19:10 Calculated Osmolality 282 mOsm/kg (285-295) L 05/23/23 19:10 Lactic Acid 2.0 mmol/L (0.5-2.2) 05/23/23 19:10 Calcium 9.4 mg/dL (8.5-10.5) 05/23/23 19:10 Magnesium 1.7 mg/dL (1.7-2.3) 05/23/23 19:10 Total Bilirubin 0.4 mg/dL (0.15-1.2) 05/23/23 19:10 AST 20 U/L (0-40) 05/23/23 19:10 ALT 25 U/L (0-41) 05/23/23 19:10 Alkaline Phosphatase 89 U/L (40-130) 05/23/23 19:10 Creatine Kinase 30 U/L (39-308) L 05/23/23 19:10 Total Protein 8.0 g/dL (6.6-8.7) 05/23/23 19:10 Albumin 4.4 g/dL (3.5-5.2) 05/23/23 19:10 Globulin 3.6 g/dL (1.3-4.6) 05/23/23 19:10 Lipase 70 U/L (13-60) H 05/23/23 19:10 Procalcitonin 0.62 ng/mL (0-0.5) H 05/23/23 19:10 Urine Color Yellow (Yellow) 05/23/23 20:02 Urine Appearance Clear (CLEAR) 05/23/23 20:02 Urine pH 5 (5-7) 05/23/23 20:02 Ur Specific [place] 1.020 (1.005-1.030) 05/23/23 20:02 Urine Protein Neg (Negative) 05/23/23 20:02 Urine Glucose (UA) Norm (Normal) 05/23/23 20:02 Urine Ketones Negative (Negative) 05/23/23 20:02 Urine Blood Neg (Negative) 05/23/23 20:02 Urine Nitrate Negative (Negative) 05/23/23 20:02 Urine Bilirubin Neg (Negative) 05/23/23 20:02 Urine Urobilinogen Norm mg/dL (Negative) 05/23/23 20:02 Ur Leukocyte Esterase Negative (Negative) 05/23/23 20:02 Discharge Plan Discharge Patient Disposition: Admitted As Inpatient Clinical Impression: Cancer of sigmoid colon, Fever, Rigor Condition: Stable Prescriptions: No Action multivitamin Tablet 1 tab PO DAILY ascorbate calcium (vitamin C) 500 mg tablet 500 mg PO DAILY magnesium citrate 100 mg tablet 100 mg PO DAILY aspirin [Adult Aspirin Regimen] 81 mg tablet,delayed release (DR/EC) 81 mg PO DAILY ondansetron 8 mg tablet,disintegrating 8 mg PO Q8H PRN (Reason: nausea and vomiting) Qty: 30 0RF escitalopram oxalate [Lexapro] 10 mg tablet 10 mg PO DAILY Qty: 30 0RF lorazepam 1 mg tablet 1 mg PO .Q6-8H PRN (Reason: anxiety) Qty: 30 2RF Referrals: Jaswinder Rene MD [Primary Care Provider] - Coding Level of Care Code 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
--- NOTE | 2023-05-23 18:49 | ECG_ITS ---
[facility] Test Date: 2023-05-23 Pat Name: Stefano Williamson Department: Room: Gender: Male [employer]or: : 1955 Requested By: Mary Bronson Order Number: [id number] Sisi MD: Adonay Wheeler M.D. Measurements Intervals [place] Rate: 107 P: 53 WV: 128 QRS: 44 QRSD: 87 T: 51 QT: 321 QTc: 429 Interpretive Statements SINUS TACHYCARDIA Compared to ECG 08/18/2022 14:21:08 Sinus rhythm no longer present Electronically Signed On 05-24-2023 12:16:49 CDT by Adonay Wheeler M.D. [id number]
--- NOTE | 2023-05-23 18:49 | XRR_ITS ---
PROCEDURE INFORMATION: Exam: XR Chest Exam date and time: 05/23/2023 6:56 PM Age: 67 years old Clinical indication: Other: Chills TECHNIQUE: Imaging protocol: Radiologic exam of the chest. Views: 1 view. COMPARISON: CR XR chest 1V portable [id number] 12/15/2022 11:05 AM FINDINGS: Tubes, catheters and devices: A PICC line is seen on the right with distal aspect of the catheter extending cephalad into the right neck. Lungs: Unremarkable. No consolidation. Mild hyperinflation. Minimal basilar atelectasis. Pleural spaces: Unremarkable. No pleural effusion. No pneumothorax. Heart/Mediastinum: Unremarkable. No cardiomegaly. Bones/joints: Visualized osseous structures show no acute abnormality. XR/XR chest 1V portable [id number] IMPRESSION: 1. Minimal basilar atelectasis. No infiltrate. 2. PICC line on the right with distal aspect of the catheter extending cephalad into the right neck likely coiled in the right internal jugular vein, and not within the superior vena cava.
--- NOTE | 2023-05-23 19:15 | PC.NURSE ---
Placed patient on continuous bedside cardiac monitoring.
[2023-05-23 19:20] LABS: Basophils % 0.2 %; Eosinophils % 0.1 %; Hematocrit 49.2 % (42.0-52.0); Hemoglobin 17.1 g/dL (11.7-16.6); Lymphocytes # 0.2 10^3/uL (0.8-4.8); Mean Corpuscular HGB Conc 34.8 g/dL (30.0-36.0); Mean Corpuscular Hemoglobin 30.6 pg (28.0-34.0); Mean Platelet Volume 9.2 fL (7.4-10.4); Monocytes # 0.6 10^3/uL (0.2-0.9); Monocytes % 5.1 %; Neutrophils # 10.58 10^3/uL (1.8-7.7); Neutrophils % 92.3 %; Nucleated Red Blood Cells % 0 %; Platelet Count 173 10^3/cmm (130-400); Red Blood Count 5.59 10^6/uL (4.1-5.3); Red Cell Distribution Width 13.9 % (12.1-15.1); White Blood Count 11.5 10^3/uL (4.0-10.0)
[2023-05-23 19:33] LABS: Alanine Aminotransferase 25 U/L (0-41); Albumin Level 4.4 g/dL (3.5-5.2); Alkaline Phosphatase 89 U/L (40-130); Anion Gap 18.3 (5-19); Aspartate Amino Transferase 20 U/L (0-40); Blood Urea Nitrogen 17 mg/dL (8-23); Calcium 9.4 mg/dL (8.5-10.5); Carbon Dioxide 21 mmol/L (22-29); Chloride 101 mmol/L (98-107); Creatine Phosphokinase 30 U/L (39-308); Globulin 3.6 g/dL (1.3-4.6); Glucose 113 mg/dL (65-115); Lipase 70 U/L (13-60); Magnesium 1.7 mg/dL (1.7-2.3); Osmolality Calculated 282 mOsm/kg (285-295); Potassium 5.3 mmol/L (3.5-5.1); Sodium 135 mmol/L (136-145); Total Bilirubin 0.4 mg/dL (0.15-1.2)
[2023-05-23] MEDS: acetaminophen 500 mg Tablet 1000 MG PO (19:48)
[2023-05-23] MEDS: cefTRIAXone 2,000 MG in sodium chloride 0.9% (plus) 50 ML 100 MG IV (20:10)
[2023-05-23 20:12] LABS: Add Urine Microscopic? NO; Charge for UA Resulting for Rev
[2023-05-23 20:21] LABS: Bilirubin Urine Neg (Negative); Blood Urine Neg (Negative); Glucose Urine UA Norm (Normal); Ketones Urine Negative (Negative); Leukocyte Esterase Urine Negative (Negative); Nitrate Urine Negative (Negative); Protein Urine Neg (Negative); Urine Appearance Clear (CLEAR); Urine Color Yellow (Yellow); Urobilinogen Urine Norm (Negative); pH Urine 5 (5-7)
--- NOTE | 2023-05-23 22:27 | PM.HP ---
Providers/Chief Complaint Primary Care Provider: Jaswinder Rene MD Chief Complaint: nausea History of Present Illness Stefano Williamson is a 67 year old male Medications/Allergies Home Medications Medication Instructions Recorded Confirmed Last Taken Type ascorbate calcium (vitamin C) 500 500 mg PO DAILY 12/11/22 05/23/23 12/15/22 History mg tablet magnesium citrate 100 mg tablet 100 mg PO DAILY 12/11/22 05/23/23 12/15/22 History multivitamin 1 tab PO DAILY 12/11/22 05/23/23 12/15/22 History ondansetron 8 mg disintegrating 8 mg PO Q8H PRN nausea and 01/18/23 05/23/23 Unknown Rx tablet vomiting #30 tabs escitalopram oxalate 10 mg tablet 10 mg PO DAILY #30 tabs 04/18/23 05/23/23 Unknown Rx (Lexapro) lorazepam 1 mg tablet 1 mg PO .Q6-8H PRN anxiety #30 tabs 04/25/23 05/23/23 Unknown Rx aspirin 81 mg tablet,delayed 81 mg PO DAILY 05/23/23 05/23/23 Unknown History release (Adult Aspirin Regimen) Allergies Allergy/AdvReac Type Severity Reaction Status Date / Time No Known Allergies Allergy Verified 05/23/23 09:40 PFSH Acute PFSH: Medical History Cancer of sigmoid colon Colon cancer No pertinent past medical history Surgical History No pertinent past surgical history Social History Smoking and tobacco status: current every day smoker Alcohol intake: current Alcohol intake frequency: holidays/special occasions only Vitals/I&O/Wt Last Vital Signs Temp 99.0 F 05/23/23 21:13 Pulse 81 05/23/23 21:30 Resp 18 05/23/23 20:17 BP 104/64 05/23/23 21:30 Pulse Ox 96 05/23/23 21:30 O2 Del Method Room Air 05/23/23 21:30 05/23/23 05/23/23 05/23/23 06:59 14:59 22:59 Intake Total 3070.94 / 3070.94 Balance 3070.94 / 3070.94 Weight last 48 hrs Weight 100.698 kg Data 05/23/23 19:10 05/23/23 19:10 Micro: Microbiology 05/23/23 19:56 Blood Culture - Preliminary Blood SPECIMEN COLLECTED 05/23/23 19:10 Blood Culture - Preliminary Blood SPECIMEN COLLECTED Coding Level of Care Code Acute Code for Chg Fwd Diagnoses
--- NOTE | 2023-05-23 22:28 | CTR_ITS ---
PROCEDURE INFORMATION: Exam: CT Chest Without Contrast; Diagnostic Exam date and time: 05/23/2023 10:54 PM Age: 67 years old Clinical indication: Fever; Patient HX: HX colon CA. Currently undergoing chemo. PT received contrast for cta head/neck prior to this study; Additional info: Rigiors fever TECHNIQUE: Imaging protocol: Diagnostic computed tomography of the chest without contrast. Radiation optimization: All CT scans at this facility use at least one of these dose optimization techniques: automated exposure control; mA and/or kV adjustment per patient size (includes targeted exams where dose is matched to clinical indication); or iterative reconstruction. REPORTING DATA: Count of CT and Cardiac NM exams in prior 12 months: This patient has received 2 known CTs and 0 known cardiac nuclear medicine studies in the 12 months prior to the current study. COMPARISON: CR (CHEST, ) 05/23/2023 6:56 PM RADIATION DOSE METRICS: Total DLP (mGy-cm): 502.4 FINDINGS: Tubes, catheters and devices: Right upper extremity PICC line is extending abnormally cephalad into the right internal jugular vein incompletely included in the field of view. Thyroid: Unremarkable thyroid lobes. Lungs: Multiple small calcified pulmonary granulomas. Negative for pulmonary consolidation. Pleural spaces: Unremarkable. No pneumothorax. No pleural effusion. Heart: Unremarkable. No cardiomegaly. No pericardial effusion. Coronary arteries: Moderate volume coronary artery calcifications. Mediastinal space: Thoracic esophagus. Lymph nodes: Calcified mediastinal nodes. Negative for mediastinal lymphadenopathy. Vasculature: Unremarkable. No aortic aneurysm. Bones/joints: Unremarkable. No acute fracture. Soft tissues: Unremarkable. PROCEDURE INFORMATION: Exam: CT Abdomen And Pelvis Without Contrast Exam date and time: 05/23/2023 10:54 PM Age: 67 years old Clinical indication: Fever; Patient HX: HX colon CA. Currently undergoing chemo. PT received contrast for cta head/neck prior to this study; Additional info: Rigiors fever TECHNIQUE: Imaging protocol: Computed tomography of the abdomen and pelvis without contrast. Radiation optimization: All CT scans at this facility use at least one of these dose optimization techniques: automated exposure control; mA and/or kV adjustment per patient size (includes targeted exams where dose is matched to clinical indication); or iterative reconstruction. REPORTING DATA: Count of CT and Cardiac NM exams in prior 12 months: This patient has received 2 known CTs and 0 known cardiac nuclear medicine studies in the 12 months prior to the current study. COMPARISON: CT abdomen pelvis w con* [id number] 02/06/2023 2:16 PM RADIATION DOSE METRICS: Total DLP (mGy-cm): 753 FINDINGS: Liver: Several simple circumscribed hepatic cysts are stable. Gallbladder and bile ducts: Normal. No calcified stones. No ductal dilation. Pancreas: Normal. No ductal dilation. Spleen: Normal. No splenomegaly. Adrenal glands: Normal. No mass. Kidneys and ureters: Small cyst at the inferior margin of the right kidney is stable measuring 13 mm transverse diameter with simple appearance. Negative for hydronephrosis. Negative for perinephric inflammation. Stomach and bowel: Distal sigmoid colon surgical anastomosis is unremarkable. No focal bowel mass identified. Negative for bowel obstruction or perforation. No definite inflammatory changes of the bowel wall. Negative for pneumatosis intestinalis. Appendix: No evidence of appendicitis. Intraperitoneal space: Unremarkable. No free air. No significant fluid collection. Vasculature: Fusiform mid abdominal aortic aneurysm with mural thrombus measures 3.6 cm. No dissection. No change from prior. Negative for rupture. Lymph nodes: Unremarkable. No enlarged lymph nodes. Urinary bladder: Unremarkable as visualized. Reproductive: Unremarkable as visualized. Bones/joints: Superior vertebral endplate concavity of L1 unchanged from prior. Negative for acute fracture. Soft tissues: Unremarkable. CT/[place] [id number] IMPRESSION: 1. Negative for acute chest pathology. 2. Malpositioned right upper extremity PICC line extending into the neck. IMPRESSION: 1. Negative for acute abdominopelvic pathology. 2. No change in abdominal aortic aneurysm.
--- NOTE | 2023-05-23 22:28 | CTR_ITS ---
PROCEDURE INFORMATION: Exam: CTA Head With Contrast, Arteriography Exam date and time: 05/23/2023 10:50 PM Age: 67 years old Clinical indication: Visual disturbance; Type not specified; Patient HX: Current has colon CA and undergoing chemo; Additional info: Vision chnages TECHNIQUE: Imaging protocol: Computed tomographic angiography of the head with contrast. Exam focused on the arteries. 3D rendering (Not supervised by radiologist): MIP and/or 3D reconstructed images were created by the technologist. Radiation optimization: All CT scans at this facility use at least one of these dose optimization techniques: automated exposure control; mA and/or kV adjustment per patient size (includes targeted exams where dose is matched to clinical indication); or iterative reconstruction. Contrast material: OMNI 350; Contrast volume: 80 ml; Contrast route: INTRAVENOUS (IV); REPORTING DATA: Count of CT and Cardiac NM exams in prior 12 months: This patient has received 2 known CTs and 0 known cardiac nuclear medicine studies in the 12 months prior to the current study. COMPARISON: No relevant prior studies available. RADIATION DOSE METRICS: Total DLP (mGy-cm): 1182.2 FINDINGS: ANTERIOR CIRCULATION: Right internal carotid artery: Intracranial segment is patent with no significant stenosis. No aneurysm. Right middle cerebral artery: No occlusion or significant stenosis. No aneurysm. Right anterior cerebral artery: No occlusion or significant stenosis. No aneurysm. Left internal carotid artery: Intracranial segment is patent with no significant stenosis. No aneurysm. Left middle cerebral artery: No occlusion or significant stenosis. No aneurysm. Left anterior cerebral artery: No occlusion or significant stenosis. No aneurysm. POSTERIOR CIRCULATION: Right vertebral artery: No occlusion or significant stenosis. No aneurysm. Left vertebral artery: No occlusion or significant stenosis. No aneurysm. Basilar artery: No occlusion or significant stenosis. No aneurysm. Right posterior cerebral artery: No occlusion or significant stenosis. No aneurysm. Left posterior cerebral artery: No occlusion or significant stenosis. No aneurysm. Brain: There is mild diffuse cerebral atrophy. Cerebral ventricles: No ventriculomegaly. Paranasal sinuses: Some fluid and mucosal thickening is seen within the right ethmoidal sinuses. Bones/joints: Unremarkable. No acute fracture. Soft tissues: Unremarkable. PROCEDURE INFORMATION: Exam: CTA Neck With Contrast Exam date and time: 05/23/2023 10:50 PM Age: 67 years old Clinical indication: Visual disturbance; Type not specified; Patient HX: Current has colon CA and undergoing chemo; Additional info: Vision chnages TECHNIQUE: Imaging protocol: Computed tomographic angiography of the neck with contrast. 3D rendering (Not supervised by radiologist): MIP and/or 3D reconstructed images were created by the technologist. Radiation optimization: All CT scans at this facility use at least one of these dose optimization techniques: automated exposure control; mA and/or kV adjustment per patient size (includes targeted exams where dose is matched to clinical indication); or iterative reconstruction. Contrast material: OMNI 350; Contrast volume: 80 ml; Contrast route: INTRAVENOUS (IV); REPORTING DATA: Count of CT and Cardiac NM exams in prior 12 months: This patient has received 2 known CTs and 0 known cardiac nuclear medicine studies in the 12 months prior to the current study. COMPARISON: CR (CHEST, ) 05/23/2023 6:56 PM RADIATION DOSE METRICS: Total DLP (mGy-cm): 1182.2 FINDINGS: Right common carotid artery: No stenosis. No dissection or occlusion. Right internal carotid artery: No stenosis of the extracranial segment. No dissection or occlusion. Right external carotid artery: No occlusion or stenosis of the origin. Left common carotid artery: No stenosis. No dissection or occlusion. Left internal carotid artery: No stenosis of the extracranial segment. No dissection or occlusion. Left external carotid artery: No occlusion or stenosis of the origin. Right vertebral artery: No stenosis. No dissection or occlusion. Left vertebral artery: No stenosis. No dissection or occlusion. Soft tissues: Normal. No significant soft tissue swelling. Bones/joints: No acute fracture. CT/CT angio headneck* [id number] IMPRESSION: 1. There are no acute intracranial findings. 2. There is no evidence for stenosis or occlusion of the visualized intracranial arteries. IMPRESSION: No stenosis or occlusion. REFERENCES: NASCET CRITERIA. The degree of stenosis in the cervical segment of the internal carotid artery is based on NASCET criteria. Normal is no stenosis. Mild is less than 50% stenosis. Moderate is 50-69% stenosis. Severe is 70% to 99% stenosis. Total occlusion is no detectable patent lumen.
[2023-05-23] MEDS: vancomycin 1,750 MG/350 ML PIGGYBACK 233.33 MG IV (22:30)
[2023-05-23 22:40] LABS: Procalcitonin 0.62 ng/mL (0-0.5)
[2023-05-23] MEDS: sodium chloride 0.9% 1,000 ML 75 ML IV (23:08)
--- NOTE | 2023-05-23 23:10 | P.HP_ITS ---
Providers/Chief Complaint Primary Care Provider: Jaswinder Rene MD Chief Complaint: nausea History of Present Illness Stefano Williamson is a 67 year old male with history of colon cancer, follows up with Dr. Dumont, today was his last chemotherapy session, after his chemotherapy session patient started experiencing rigors, he has not experienced diarrhea, nausea, vomiting, chest pain or shortness of breath, he has been noticing some cough for last few days, patient is endorsing constipation, patient is stating that about 2 weeks ago he noticed a spell when he could not see at all and his vision was blurry he thinks he had a stroke at that time, patient stating that he noticed shooting sensation which was traveling from his back towards his neck but he would not describe it as pain, he has not noticed similar changes after that incident, patient has a PICC line in his right arm which was placed roughly 6 months ago, In the ER he has been started on antibiotics, considering recent vision changes I have requested CTA head and neck Brudzinski and Kernig signs negative Review of Systems Eyes: Denies: change in vision ENMT: Denies: throat pain or dental pain Card: Denies: chest pain Resp: Denies: dyspnea GI: Reports: constipation Musc: Reports: neck pain Skin/Breast: Denies: rash Neuro: Reports: headache(s) Psych: Reports: anxiety Medications/Allergies Home Medications Medication Instructions Recorded Confirmed Last Taken Type ascorbate calcium (vitamin C) 500 500 mg PO DAILY 12/11/22 05/23/23 12/15/22 History mg tablet magnesium citrate 100 mg tablet 100 mg PO DAILY 12/11/22 05/23/23 12/15/22 History multivitamin 1 tab PO DAILY 12/11/22 05/23/23 12/15/22 History ondansetron 8 mg disintegrating 8 mg PO Q8H PRN nausea and 01/18/23 05/23/23 Unknown Rx tablet vomiting #30 tabs escitalopram oxalate 10 mg tablet 10 mg PO DAILY #30 tabs 04/18/23 05/23/23 Unknown Rx (Lexapro) lorazepam 1 mg tablet 1 mg PO .Q6-8H PRN anxiety #30 tabs 04/25/23 05/23/23 Unknown Rx aspirin 81 mg tablet,delayed 81 mg PO DAILY 05/23/23 05/23/23 Unknown History release (Adult Aspirin Regimen) Allergies Allergy/AdvReac Type Severity Reaction Status Date / Time No Known Allergies Allergy Verified 05/23/23 09:40 PFSH Acute PFSH: Medical History Cancer of sigmoid colon Colon cancer No pertinent past medical history Surgical History No pertinent past surgical history Social History Smoking and tobacco status: current every day smoker Alcohol intake: current Alcohol intake frequency: holidays/special occasions only Vitals/I&O/Wt Last Vital Signs Temp 99.0 F 05/23/23 21:13 Pulse 81 05/23/23 22:30 Resp 18 05/23/23 20:17 BP 98/68 05/23/23 22:30 Pulse Ox 97 05/23/23 22:30 O2 Del Method Room Air 05/23/23 22:30 05/23/23 05/23/23 05/24/23 14:59 22:59 06:59 Intake Total 3070.94 / 3070.94 Balance 3070.94 / 3070.94 Weight last 48 hrs Weight 100.698 kg Physical Exam Narrative: Patient laying supine No neck pain or headache Brudzinski and Kernig signs negative NIH 0 Looks euvolemic Abdomen soft nontender bowel sounds present Surgical scar noted S1, S2 Currently on room air at the bedside Data 05/23/23 19:10 05/23/23 19:10 Micro: Microbiology 05/23/23 19:56 Blood Culture - Preliminary Blood SPECIMEN COLLECTED 05/23/23 19:10 Blood Culture - Preliminary Blood SPECIMEN COLLECTED A&P Assessment and plan (1) Cancer of sigmoid colon: (2) Enlarged prostate: (3) Tobacco abuse: (4) Blurry vision: (5) Rigors: Plan Fever with rigors Kernig's and Brudzinski's sign negative Patient had headache and shooting sensation in his neck roughly a week ago Blurry vision We will request CTA head and neck Start broad-spectrum antibiotics, concern for bacteremia PICC line could be the source of infection, requested blood cultures Patient is not septic no acidosis or endorgan damage Leukocytosis and fever present Patient is stating that this was his last chemotherapy session, we can probably remove his PICC line in the morning In case of any neurological changes or altered mental status pressure will stay low to require spinal tap and broaden his antibiotic biotic and add antibiotic coverage patient is immunocompromised Full code Cardiac DVT prophylaxis on board PICC line malpositioning, it is ending in right IJ instead of SVC or right atria, which should be removed in the morning Hyperkalemia: We will give calcium gluconate, patient is constipated I would not give Kayexalate for now Repeat BMP in the morning Hemoconcentration related high hematocrit Attestations Medical Necessity Statement*: Anticipating more than 2 midnights Diagnoses Cancer of sigmoid colon C18.7 Enlarged prostate N40.0 Tobacco abuse Z72.0 Blurry vision H53.8 Rigors R68.89
[2023-05-24] VITALS (11 sets, daily range): BP systolic 96–125; BP diastolic 56–79; PULSE 60–69; RESP 16–18; TEMP 36.4–37; O2SAT 96–99
--- NOTE | 2023-05-24 00:56 | PC.NURSE ---
Updated med rec to the best of my ability via verbally with patient. Patient states he thinks that there are more medications he takes, but he doesn't know the names of them. Patient states he will have his bring his medications in the morning.
[2023-05-24] MEDS: calcium gluconate 0.1 gm/mL 10% SDV 10mL 1 GM IVP (01:05)
--- NOTE | 2023-05-24 01:14 | PC.NURSE ---
Patient states he takes stool softener pills at home, but does not know what they are called. Patient states when those don't work, he uses Miralax, and when the Miralax doesn't work, he uses Milk of Mag.
[2023-05-24] MEDS: piperacillin-tazobactam 3.375 GM in sodium chloride 0.9% (plus) 50 ML IV ×3 (04:01→21:08)
[2023-05-24] MEDS: ondansetron 2 mg/ML SDV 2 mL 4 MG IVP (04:27)
[2023-05-24 05:23] LABS: Eosinophils % 0.3 %; Hematocrit 40.9 % (42.0-52.0); Hemoglobin 13.9 g/dL (11.7-16.6); Lymphocytes # 0.4 10^3/uL (0.8-4.8); Lymphocytes % 6.3 %; Mean Corpuscular Hemoglobin 29.7 pg (28.0-34.0); Mean Corpuscular Volume 87.4 fl (80-94); Mean Platelet Volume 9.5 fL (7.4-10.4); Monocytes # 0.6 10^3/uL (0.2-0.9); Monocytes % 9.3 %; Neutrophils # 5.29 10^3/uL (1.8-7.7); Neutrophils % 83.8 %; Nucleated Red Blood Cells % 0 %; Platelet Count 148 10^3/cmm (130-400); Red Blood Count 4.68 10^6/uL (4.1-5.3); Red Cell Distribution Width 13.9 % (12.1-15.1); White Blood Count 6.3 10^3/uL (4.0-10.0)
[2023-05-24 05:41] LABS: Magnesium 1.7 mg/dL (1.7-2.3)
[2023-05-24 05:42] LABS: Anion Gap 13.7 (5-19); Blood Urea Nitrogen 15 mg/dL (8-23); C Reactive Protein 28.2 mg/L (0.0-4.9); Calcium 8.4 mg/dL (8.5-10.5); Carbon Dioxide 20 mmol/L (22-29); Chloride 106 mmol/L (98-107); Glomerular Filtration Rate 113.2 mL/min (90-130); Glucose 106 mg/dL (65-115); Osmolality Calculated 281 mOsm/kg (285-295); Phosphorus 3.3 mg/dL (2.5-4.5); Potassium 4.7 mmol/L (3.5-5.1); Sodium 135 mmol/L (136-145)
[2023-05-24 05:56] LABS: Vitamin B12 686 pg/mL (232-1245)
[2023-05-24] MEDS: aspirin 81 mg EC Tablet PO (09:32)
[2023-05-24] MEDS: enoxaparin 40 mg/0.4 mL Syringe SUBCUT (09:33)
[2023-05-24] MEDS: sennosides-docusate Tablet 1 TAB PO (09:33)
[2023-05-24 10:22] LABS: Add Urine Microscopic? NO; Charge for UA Resulting for Rev
[2023-05-24 10:29] LABS: Bilirubin Urine Neg (Negative); Blood Urine Neg (Negative); Glucose Urine UA Norm (Normal); Ketones Urine Negative (Negative); Leukocyte Esterase Urine Negative (Negative); Nitrate Urine Negative (Negative); Protein Urine Neg (Negative); Urine Appearance Clear (CLEAR); Urine Color Yellow (Yellow); Urobilinogen Urine Norm (Negative); pH Urine 5 (5-7)
--- NOTE | 2023-05-24 10:51 | USCV_ITS ---
Stefano Williamson Age: 67 Gender: M : 1955 Exam Date: 05/24/2023 13:17 Ordering Phys: Matthew Velásquez MD Technologist: Colt Yo [place] [facility] [place]: chest pain BP: 110 / 70 HR: 72 Rhythm: Sinus Technical Quality: Technically difficult study MEASUREMENTS (Male / Female) Normal Values 2D ECHO LV Ejection Fraction MOD 2C 65.8 % LV Ejection Fraction 2C AL 67.5 % DOPPLER AV Peak Velocity 120.0 cm/s MV Area PHT 3.9 cm squared Mitral E to A Ratio 1.0 MV E' Velocity 38.5 cm/s Mitral E to MV E' Ratio 7.0 Mitral E to LV E' Lateral Ratio 7.3 Mitral E to LV E' Septal Ratio 6.8 TR Peak Velocity 145.0 cm/s TR Peak Gradient 8.4 mmHg TV Peak E Velocity 71.0 cm/s Right Atrial Pressure 3.0 mmHg Pulmonary Artery Systolic Pressu 11.4 mmHg FINDINGS Left Ventricle Left ventricle is normal in size. LV systolic function is normal with EF 55 to 60%. No regional wall motion abnormalities are seen. Right Ventricle Normal in size and function Right Atrium Normal in size Left Atrium Normal in size Mitral Valve Mild mitral annular calcification seen. Aortic Valve Grossly normal. No significant stenosis or regurgitation. Tricuspid Valve Trace tricuspid regurgitaiton. Insufficient TR jet to calculate RVSP Pulmonic Valve Not well visualized Pericardium Normal Aorta Normal in size IVC Appears to be normal CONCLUSIONS Technically limited quality echocardiogram because of poor ultrasonic windows. LV systolic function is normal with EF of 55 to 60%. Trace tricuspid regurgitation. No comparison studies are available. Adonay Wheeler MD (Electronically Signed) Final Date: 24 May 2023 15:26 S
[2023-05-24] MEDS: LORazepam 1 mg Tablet PO (11:30)
[2023-05-24] MEDS: sodium chloride 0.9% 1,000 ML 75 ML IV (11:31)
[2023-05-24] MEDS: vancomycin 1,750 MG/350 ML PIGGYBACK 233.33 MG IV (12:04)
[2023-05-24 12:16] LABS: Adenovirus Not Detected (NOT DETECT); Chlamydia Pneumoniae Not Detected (NOT DETECT); Coronavirus 229E,HKU1,NL63,OC4 Not Detected (NOT DETECT); Human Metapneumovirus Not Detected (NOT DETECT); Human Rhinovirus/Enterovirus Not Detected (NOT DETECT); Influenza A Not Detected (NOT DETECT); Influenza A H1 Not Detected (NOT DETECT); Influenza A H1-2009 Not Detected (NOT DETECT); Influenza A H3 Not Detected (NOT DETECT); Influenza B Not Detected (NOT DETECT); Mycoplasma Pneumoniae Not Detected (NOT DETECT); Parainfluenza Virus Type 1 Not Detected (NOT DETECT); Parainfluenza Virus Type 2 Not Detected (NOT DETECT); Parainfluenza Virus Type 3 Not Detected (NOT DETECT); Parainfluenza Virus Type 4 Not Detected (NOT DETECT); Respiratory Syncytial Virus A Not Detected (NOT DETECT); Respiratory Syncytial Virus B Not Detected (NOT DETECT); SARS-COV-2 Not Detected (NOT DETECT)
--- NOTE | 2023-05-24 15:18 | P.PN_ITS ---
Subjective Subjective: Patient was seen this morning, denies any headache, no blurry vision, no nausea, no vomiting, he is currently on chemotherapy, receiving slow infusion, through his PICC line, denies any neck pain, no neck stiffness, no nausea, no vomiting no abdominal pain he was actually able to ambulate to the bathroom, no shortness of breath, no fevers overnight, no chills, no lightheadedness, no dizziness, patient's is at bedside -I had a discussion about his fever, his rigors rigors have resolved, but as he is on chemotherapy he is immunocompromise so far I do not see a source of infection his UA is relatively unremarkable chest x-ray no focal pneumonia, no neck stiffness no neck pain Kernig sign negative Brudzinski sign negative respiratory viral panel negative, -The question is is that could the PICC line be a source of infection, certainly to malpositioned and needs to be removed, however today is his last day of chemotherapy, so I will talk to hematology oncology, and likely remove it tomorrow if they are okay with that -And we can culture the tip -However so far his blood cultures are unremarkable he is afebrile, so it potentially is not a source -I will also order echocardiogram his heart to evaluate for possible endocarditis -He does have history of smoking, he does have abdominal aortic dilatation at 3.6 cm with a mural thrombus, no dissection, negative for rupture, will need to be followed as outpatient, no change from prior -Spoke to hematology oncology, they were okay with removing PICC line tomorrow after his chemotherapy infusion has completed - Vitals/I&O/Wt Last Vital Signs Temp 97.6 F 05/24/23 12:00 Pulse 66 05/24/23 12:00 Resp 18 05/24/23 12:00 BP 125/79 05/24/23 12:00 Pulse Ox 99 05/24/23 12:00 O2 Del Method Room Air 05/24/23 08:52 05/24/23 05/24/23 05/24/23 06:59 14:59 22:59 Intake Total 1680 / 4750.94 2288.75 / 2288.75 Output Total 300 / 300 Balance 1380 / 4450.94 2288.75 / 2288.75 Weight last 48 hrs Weight 100.698 kg Physical Exam Const: COMMON NORMALS: no acute distress and patient oriented x3 Resp: COMMON NORMALS: normal respiratory effort, No retractions, No use of accessory muscles and clear to auscultation bilaterally AUSCULTATION: clear to auscultation bilaterally Cardio: COMMON NORMALS: regular rate, regular rhythm, S1 normal heart sound present and S2 normal heart sound present RATE: regular rate RHYTHM: regular rhythm HEART SOUNDS: S1 normal heart sound present and S2 normal heart sound present GI: COMMON NORMALS: Normal to inspection, nondistended, normoactive bowel sounds present and non-tender Extremity: COMMON NORMALS: no pedal edema Neuro: COMMON NORMALS: patient oriented x3 Psych: COMMON NORMALS: mental status grossly normal Data 05/24/23 04:57 05/24/23 04:57 Micro: Microbiology 05/23/23 19:56 Blood Culture - Preliminary Blood SPECIMEN COLLECTED 05/23/23 19:10 Blood Culture - Preliminary Blood SPECIMEN COLLECTED A&P Assessment and plan (1) Cancer of sigmoid colon: (2) Enlarged prostate: (3) Tobacco abuse: (4) Blurry vision: (5) Rigors: (6) Encounter for smoking cessation counseling: (7) Abdominal aortic aneurysm (AAA), 35-39 mm diameter: (8) Fever of unknown origin (FUO): (9) Maintenance chemotherapy: (10) Immunocompromised: Plan Fever with rigors, fever of unknown origin Kernig's and Brudzinski's sign negative Patient had headache and shooting sensation in his neck roughly a week ago Blurry vision, resolved CTA head and neck no acute findings Start broad-spectrum antibiotics, concern for bacteremia PICC line could be the source of infection, requested blood cultures, so far negative, afebrile, but will potentially remove tomorrow, and culture trip Patient is not septic no acidosis or endorgan damage Leukocytosis has resolved remains afebrile Full code Cardiac DVT prophylaxis on board PICC line malpositioning, it is ending in right IJ instead of SVC or right atria , will move after his chemotherapy is completed infusing likely tomorrow Smoking cessation counseling Abdominal aortic aneurysm with mural thrombus, will need outpatient follow-up with vascular surgery Hyperkalemia: Resolved Spoke to patient, spoke to , spoke to oncology, spoke to nursing staff Attestations Medical Necessity Statement*: Patient requires hospitalization for fever of unknown origin Diagnoses Cancer of sigmoid colon C18.7 Enlarged prostate N40.0 Tobacco abuse Z72.0 Blurry vision H53.8 Rigors R68.89 Encounter for smoking cessation counseling Z71.6 Abdominal aortic aneurysm (AAA), 35-39 mm diameter I71.40 Fever of unknown origin (FUO) R50.9 Maintenance chemotherapy Z51.11 Immunocompromised D84.9
[2023-05-24] MEDS: escitalopram 10 mg Tablet PO (17:49)
--- NOTE | 2023-05-24 18:41 | PC.NURSE ---
Patient is resting in bed with no complaints of pain or any other needs at this time. Pt has remained afebrile throughout shift. Call light and table are within reach. Nurse has answered pt/families questions at this time.
[2023-05-25] MEDS: sodium chloride 0.9% 1,000 ML 75 ML IV (00:45)
[2023-05-25] MEDS: vancomycin 1,750 MG/350 ML PIGGYBACK 233.33 MG IV (00:51)
[2023-05-25 01:26] VITALS: BP 112/62; PULSE 66; RESP 16; TEMP 36.9; O2SAT 94
[2023-05-25 03:36] VITALS: BP 107/65; PULSE 67; RESP 12; TEMP 36.6; O2SAT 97
[2023-05-25] MEDS: piperacillin-tazobactam 3.375 GM in sodium chloride 0.9% (plus) 50 ML IV (05:37)
[2023-05-25 05:49] LABS: Basophils % 0.5 %; Eosinophils # 0.2 10^3/uL (0.0-0.8); Eosinophils % 3.8 %; Hematocrit 40.7 % (42.0-52.0); Hemoglobin 13.8 g/dL (11.7-16.6); Lymphocytes % 26.1 %; Mean Corpuscular HGB Conc 33.9 g/dL (30.0-36.0); Mean Corpuscular Hemoglobin 30.3 pg (28.0-34.0); Mean Corpuscular Volume 89.5 fl (80-94); Mean Platelet Volume 9.7 fL (7.4-10.4); Monocytes # 0.4 10^3/uL (0.2-0.9); Monocytes % 10.4 %; Neutrophils # 2.33 10^3/uL (1.8-7.7); Neutrophils % 58.9 %; Nucleated Red Blood Cells % 0 %; Platelet Count 141 10^3/cmm (130-400); Red Blood Count 4.55 10^6/uL (4.1-5.3); Red Cell Distribution Width 14.2 % (12.1-15.1)
[2023-05-25 06:12] LABS: Alanine Aminotransferase 20 U/L (0-41); Albumin Level 3.3 g/dL (3.5-5.2); Alkaline Phosphatase 67 U/L (40-130); Anion Gap 13.5 (5-19); Aspartate Amino Transferase 18 U/L (0-40); Blood Urea Nitrogen 16 mg/dL (8-23); C Reactive Protein 22.3 mg/L (0.0-4.9); Calcium 8.3 mg/dL (8.5-10.5); Carbon Dioxide 21 mmol/L (22-29); Chloride 105 mmol/L (98-107); Globulin 2.9 g/dL (1.3-4.6); Glucose 86 mg/dL (65-115); Osmolality Calculated 280 mOsm/kg (285-295); Phosphorus 3.2 mg/dL (2.5-4.5); Potassium 4.5 mmol/L (3.5-5.1); Sodium 135 mmol/L (136-145); Total Bilirubin 0.3 mg/dL (0.15-1.2); Total Protein 6.2 g/dL (6.6-8.7)
[2023-05-25 08:00] VITALS: BP 120/72; PULSE 70; RESP 16; TEMP 36.7; O2SAT 95
[2023-05-25 08:10] VITALS: PULSE 77; RESP 16; O2SAT 94
[2023-05-25] MEDS: sennosides-docusate Tablet 1 TAB PO (10:13)
[2023-05-25] MEDS: aspirin 81 mg EC Tablet PO (10:13)
[2023-05-25] MEDS: LORazepam 1 mg Tablet PO (10:13)
[2023-05-25] MEDS: escitalopram 10 mg Tablet PO (10:13)
[2023-05-25] MEDS: enoxaparin 40 mg/0.4 mL Syringe SUBCUT (10:14)
--- NOTE | 2023-05-25 10:41 | PM.DCS ---
Discharge Providers Date of Admission: 05/23/23 22:03 Date of Discharge: May 25, 2023 Attending Provider at Admission: Roseline Burton MD Attending Provider at Discharge: Matthew Velásquez MD Primary Care Provider: Jaswinder Rene MD Diagnoses at Discharge Discharge Diagnosis (1) Cancer of sigmoid colon: Status: Acute (2) Enlarged prostate: Status: Acute (3) Tobacco abuse: Status: Acute (4) Blurry vision: Status: Acute (5) Rigors: Status: Acute (6) Encounter for smoking cessation counseling: Status: Acute (7) Abdominal aortic aneurysm (AAA), 35-39 mm diameter: Status: Acute (8) Fever of unknown origin (FUO): Status: Acute (9) Maintenance chemotherapy: Status: Acute (10) Immunocompromised: Status: Acute Reason for Visit Reason for Visit: nausea Hospital Course Hospital Course This is a 67-year-old male with a past medical history of colon cancer on active chemotherapy, currently on his last session, who presents [facility] due to severe rigors, fever and chills Patient was admitted to [facility] for concerns for fever of unknown origin, his UA did not show any significant evidence of a UTI, chest x-ray no focal pneumonia, CTA chest abdomen pelvis acute findings, viral panel negative, so far his blood cultures have been unremarkable, he remained afebrile, clinically improving. He was managed with broad-spectrum antibiotic therapy vancomycin, Zosyn. I was concerned that potentially a source of infection could be his PICC line that was placed roughly 6 months ago, it was malpositioned however he was on his last day of chemotherapy through the PICC line. As blood cultures were unremarkable and he was clinically improving, after discussing the risk and benefits of continuing chemotherapy through the PICC line with patient, and oncology, decision was made to continue chemotherapy and remove PICC line on 05/25/2023 when his chemotherapy was completed, and to culture the tip as a potential source of infection. Patient was seen the morning of 05/25/2023, he remained afebrile, asymptomatic, cultures have remained unremarkable, leukocytosis has resolved, his PICC line was removed, tip cultured. Patient was adamant about leaving the hospital after, also threatened to leave AGAINST MEDICAL ADVICE. I have strongly recommended for him to remain in the hospital, continue to receive IV antibiotics until at least his blood cultures are negative 72 hours, and at least the preliminary cultures from his catheter tip are negative. However patient was adamant about going home, he tells me that he rather than stay here in the hospital. The following discussion was made in front of patient, his , and nursing staff, I discussed the risks of leaving the hospital including significant morbidity and mortality, the risk of , the risk of sepsis, the risk of further infection, the risk of heart valve infections, the risk of septic emboli, risk of cryptogenic stroke. However patient was adamant about going home again he repeated that he rather than spend more time here in the hospital. I have discharged patient home with 7 days of p.o. antibiotics, instructions to follow-up with primary care provider on Sunday. If anytime he develops fevers or chills or rigors to come immediately back to the emergency room. We will follow his cultures, if they remain negative then he likely will not require further work-up. However if his cultures do come back positive, and his culture tip does come back positive he will likely require a transesophageal echocardiogram to evaluate for possible endocarditis and likely require IV antibiotic treatments for a prolonged time such as 6 weeks. He voiced understanding, all questions answered, again adamant about leaving the hospital, discharged home as above. Physical Exam Const: COMMON NORMALS: no acute distress and patient oriented x3 Resp: COMMON NORMALS: normal respiratory effort, No retractions, No use of accessory muscles and clear to auscultation bilaterally AUSCULTATION: clear to auscultation bilaterally Cardio: COMMON NORMALS: regular rate, regular rhythm, S1 normal heart sound present and S2 normal heart sound present RATE: regular rate RHYTHM: regular rhythm HEART SOUNDS: S1 normal heart sound present and S2 normal heart sound present GI: COMMON NORMALS: Normal to inspection, nondistended, normoactive bowel sounds present and non-tender Extremity: COMMON NORMALS: no pedal edema Neuro: COMMON NORMALS: patient oriented x3 Psych: COMMON NORMALS: mental status grossly normal Discharge Data Studies Completed and Pending Completed Studies During Hospitalization Category Date Time Status CT chest abdomen pelvis [[place] [id number] Cat Scan 05/23/23 22:28 Completed ] Stat CTA head neck [CT angio headneck* [id number]] Stat Cat Scan 05/23/23 22:28 Completed XR chest 1V portable [id number] Stat Exams 05/23/23 18:49 Completed CV. echo complete* [id number] Routine Ultrasound 05/24/23 10:51 Completed Pending at discharge Category Date Time Status Blood Culture Stat Lab 05/23/23 19:56 Results C Reactive Protein AM LABS Lab 05/26/23 04:00 Ordered C Reactive Protein AM LABS Lab 05/27/23 04:00 Ordered Catheter Tip Culture Routine Lab 05/25/23 09:23 Uncollected Complete Blood Count w/Auto AM LABS Lab 05/26/23 04:00 Ordered Complete Blood Count w/Auto AM LABS Lab 05/27/23 04:00 Ordered Comprehensive Metabolic Panel AM LABS Lab 05/26/23 04:00 Ordered Comprehensive Metabolic Panel AM LABS Lab 05/27/23 04:00 Ordered Magnesium AM LABS Lab 05/26/23 04:00 Ordered Magnesium AM LABS Lab 05/27/23 04:00 Ordered Phosphorus AM LABS Lab 05/26/23 04:00 Ordered Phosphorus AM LABS Lab 05/27/23 04:00 Ordered Procalcitonin AM LABS Lab 05/26/23 04:00 Ordered Procalcitonin AM LABS Lab 05/27/23 04:00 Ordered Urine Culture Stat Lab 05/24/23 10:10 Received Vancomycin Trough Timed Lab 05/25/23 23:45 Ordered Radiology Impressions Chest X-Ray 05/23/23 18:49 IMPRESSION: 1. Minimal basilar atelectasis. No infiltrate. 2. PICC line on the right with distal aspect of the catheter extending cephalad into the right neck likely coiled in the right internal jugular vein, and not within the superior vena cava. Chest/Abdomen/Pelvis CT 05/23/23 22:28 IMPRESSION: 1. Negative for acute chest pathology. 2. Malpositioned right upper extremity PICC line extending into the neck. IMPRESSION: 1. Negative for acute abdominopelvic pathology. 2. No change in abdominal aortic aneurysm. Head/Neck CTA 05/23/23 22:28 IMPRESSION: 1. There are no acute intracranial findings. 2. There is no evidence for stenosis or occlusion of the visualized intracranial arteries. IMPRESSION: No stenosis or occlusion. REFERENCES: NASCET CRITERIA. The degree of stenosis in the cervical segment of the internal carotid artery is based on NASCET criteria. Normal is no stenosis. Mild is less than 50% stenosis. Moderate is 50-69% stenosis. Severe is 70% to 99% stenosis. Total occlusion is no detectable patent lumen. Laboratory Results WBC 4.0 10^3/uL (4.0-10.0) 05/25/23 05:01 RBC 4.55 10^6/uL (4.1-5.3) 05/25/23 05:01 Hgb 13.8 g/dL (11.7-16.6) 05/25/23 05:01 Hct 40.7 % (42.0-52.0) L 05/25/23 05:01 MCV 89.5 fl (80-94) 05/25/23 05:01 MCH 30.3 pg (28.0-34.0) 05/25/23 05:01 MCHC 33.9 g/dL (30.0-36.0) 05/25/23 05:01 RDW 14.2 % (12.1-15.1) 05/25/23 05:01 Plt Count 141 10^3/cmm (130-400) 05/25/23 05:01 MPV 9.7 fL (7.4-10.4) 05/25/23 05:01 Neut % (Auto) 58.9 % 05/25/23 05:01 Lymph % (Auto) 26.1 % 05/25/23 05:01 Wood % (Auto) 10.4 % 05/25/23 05:01 Eos % (Auto) 3.8 % 05/25/23 05:01 Baso % (Auto) 0.5 % 05/25/23 05:01 Neut # (Auto) 2.33 10^3/uL (1.8-7.7) 05/25/23 05:01 Lymph # (Auto) 1.0 10^3/uL (0.8-4.8) 05/25/23 05:01 Wood # (Auto) 0.4 10^3/uL (0.2-0.9) 05/25/23 05:01 Eos # (Auto) 0.2 10^3/uL (0.0-0.8) 05/25/23 05:01 Baso # (Auto) 0.0 10^3/uL (0.0-0.1) 05/25/23 05:01 Nucleated RBC % (auto) 0 % 05/25/23 05:01 Nucleated RBCs # 0.0 /100WBC 05/25/23 05:01 Sodium 135 mmol/L (136-145) L 05/25/23 05:01 Potassium 4.5 mmol/L (3.5-5.1) 05/25/23 05:01 Chloride 105 mmol/L (98-107) 05/25/23 05:01 Carbon Dioxide 21 mmol/L (22-29) L 05/25/23 05:01 Anion Gap 13.5 (5-19) 05/25/23 05:01 BUN 16 mg/dL (8-23) 05/25/23 05:01 Creatinine 0.8 mg/dL (0.7-1.2) 05/25/23 05:01 GFR Calculation 97.0 mL/min (90-130) 05/25/23 05:01 Glucose 86 mg/dL (65-115) 05/25/23 05:01 Calculated Osmolality 280 mOsm/kg (285-295) L 05/25/23 05:01 Lactic Acid 2.0 mmol/L (0.5-2.2) 05/23/23 19:10 Calcium 8.3 mg/dL (8.5-10.5) L 05/25/23 05:01 Phosphorus 3.2 mg/dL (2.5-4.5) 05/25/23 05:01 Magnesium 2.0 mg/dL (1.7-2.3) 05/25/23 05:01 Total Bilirubin 0.3 mg/dL (0.15-1.2) 05/25/23 05:01 AST 18 U/L (0-40) 05/25/23 05:01 ALT 20 U/L (0-41) 05/25/23 05:01 Alkaline Phosphatase 67 U/L (40-130) 05/25/23 05:01 Creatine Kinase 30 U/L (39-308) L 05/23/23 19:10 C-Reactive Protein 22.3 mg/L (0.0-4.9) H 05/25/23 05:01 Total Protein 6.2 g/dL (6.6-8.7) L 05/25/23 05:01 Albumin 3.3 g/dL (3.5-5.2) L 05/25/23 05:01 Globulin 2.9 g/dL (1.3-4.6) 05/25/23 05:01 Lipase 70 U/L (13-60) H 05/23/23 19:10 Vitamin B12 686 pg/mL (232-1245) 05/24/23 04:57 Procalcitonin 1.10 ng/mL (0-0.5) H 05/25/23 05:01 Urine Color Yellow (Yellow) 05/24/23 10:10 Urine Appearance Clear (CLEAR) 05/24/23 10:10 Urine pH 5 (5-7) 05/24/23 10:10 Ur Specific [place] 1.020 (1.005-1.030) 05/24/23 10:10 Urine Protein Neg (Negative) 05/24/23 10:10 Urine Glucose (UA) Norm (Normal) 05/24/23 10:10 Urine Ketones Negative (Negative) 05/24/23 10:10 Urine Blood Neg (Negative) 05/24/23 10:10 Urine Nitrate Negative (Negative) 05/24/23 10:10 Urine Bilirubin Neg (Negative) 05/24/23 10:10 Urine Urobilinogen Norm mg/dL (Negative) 05/24/23 10:10 Ur Leukocyte Esterase Negative (Negative) 05/24/23 10:10 Nasal Influ A H1 2008 PCR Not detected (NOT DETECT) 05/24/23 10:15 Adenovirus (PCR) Not detected (NOT DETECT) 05/24/23 10:15 C. pneumoniae DNA (PCR) Not detected (NOT DETECT) 05/24/23 10:15 Coronavirus 229E (PCR) Not detected (NOT DETECT) 05/24/23 10:15 Human Metapneumovir PCR Not detected (NOT DETECT) 05/24/23 10:15 Influenza A (H1) PCR Not detected (NOT DETECT) 05/24/23 10:15 Influenza A (H3) PCR Not detected (NOT DETECT) 05/24/23 10:15 Influenza Type A (PCR) Not detected (NOT DETECT) 05/24/23 10:15 Influenza Type B (PCR) Not detected (NOT DETECT) 05/24/23 10:15 M. pneumoniae (PCR) Not detected (NOT DETECT) 05/24/23 10:15 Parainfluenza 1 (PCR) Not detected (NOT DETECT) 05/24/23 10:15 Parainfluenza 2 (PCR) Not detected (NOT DETECT) 05/24/23 10:15 Parainfluenza 3 (PCR) Not detected (NOT DETECT) 05/24/23 10:15 Parainfluenza 4 (PCR) Not detected (NOT DETECT) 05/24/23 10:15 RSV Type A (PCR) Not detected (NOT DETECT) 05/24/23 10:15 RSV Type B (PCR) Not detected (NOT DETECT) 05/24/23 10:15 Entero/Rhino (PCR) Not detected (NOT DETECT) 05/24/23 10:15 SARS-CoV-2 (PCR) Not detected (NOT DETECT) 05/24/23 10:15 Vitals Last Vital Signs Temp 98.0 F 05/25/23 08:00 Pulse 77 05/25/23 08:10 Resp 16 05/25/23 08:10 BP 120/72 05/25/23 08:00 Pulse Ox 94 05/25/23 08:10 O2 Del Method Room Air 05/25/23 08:10 Discharge Plan Discharge Patient Disposition: Home Condition: Stable Prescriptions: New ciprofloxacin HCl 500 mg tablet 500 mg PO Q12H 7 Days Qty: 14 0RF metronidazole 500 mg tablet 500 mg PO Q8H 7 Days Qty: 21 0RF Continued multivitamin Tablet 1 tab PO DAILY ascorbate calcium (vitamin C) 500 mg tablet 500 mg PO DAILY magnesium citrate 100 mg tablet 100 mg PO DAILY ondansetron 8 mg tablet,disintegrating 8 mg PO Q8H PRN (Reason: nausea and vomiting) Qty: 30 0RF escitalopram oxalate [Lexapro] 10 mg tablet 10 mg PO DAILY Qty: 30 0RF lorazepam 1 mg tablet 1 mg PO .Q6-8H PRN (Reason: anxiety) Qty: 30 2RF aspirin 325 mg Tablet 325 mg PO DAILY Discharge Orders: Discharge Order (Routine); Ordered 05/25/23 Ordered By: Matthew Velásquez Referrals: Jaswinder Rene MD [Primary Care Provider] - Zheng Villasenor MD [Physician] - 1 month (AAA) Discharge Diet: As Directed Discharge Activity: Resume usual activity Patient Instructions: Abdominal Aortic Aneurysm, Ciprofloxacin (By mouth), Metronidazole (By mouth), Fever - Adult, Sepsis (GEN), Opioid Safety Activity Restrictions/Additional Instructions: - If you have any recurrent fevers, or chills please come back to the emergency room -Please take antibiotics as prescribed -Continue isolation precautions, face mask, hand wash -Please see primary care in the next 72 hours -Please follow-up with Dr. Dumont Discharge Attestations Time Spent in Discharge Care*: greater than 30 min Quality Metrics Clinical Quality Measures [ No reported AMI, CVA or VTE this stay] Coding Level of Care Code 81882 Total time (in minutes) for Discharge: 50 Diagnoses Cancer of sigmoid colon C18.7 Enlarged prostate N40.0 Tobacco abuse Z72.0 Blurry vision H53.8 Rigors R68.89 Encounter for smoking cessation counseling Z71.6 Abdominal aortic aneurysm (AAA), 35-39 mm diameter I71.40 Fever of unknown origin (FUO) R50.9 Maintenance chemotherapy Z51.11 Immunocompromised D84.9
[2023-05-25 12:00] VITALS: BP 115/70; PULSE 71; RESP 17; TEMP 36.6; O2SAT 96
[2023-05-25 13:01] VITALS: BP 115/70; PULSE 71; RESP 17; TEMP 36.6; O2SAT 96
== END 2023-05-25 13:00 | disposition home or self-care (01) | DRG 864 ==
LOC: ER 23:39 → MEDSURG 23:52
PROVIDERS: Internal Medicine; Admitting Provider Internal Medicine; Emergency Provider Emergency Medicine; PCP Internal Medicine; Visit Provider Family Medicine
DX: R50.9 Fever, unspecified (principal); C18.7 Malignant neoplasm of sigmoid colon; T82.524A Displacement of infusion catheter, initial encounter; D84.821 Immunodeficiency due to drugs; Z79.899 Other long term (current) drug therapy; Y82.9 Unspecified medical devices associated with adverse incidents; K59.00 Constipation, unspecified; N40.0 Benign prostatic hyperplasia without lower urinary tract symptoms; F17.200 Nicotine dependence, unspecified, uncomplicated; E87.5 Hyperkalemia; T45.1X5A Adverse effect of antineoplastic and immunosuppressive drugs, initial encounter
CPT/HCPCS: 36415; 70496; 70498; 71045; 71250; 74176; 80048; 80053; 81003; 82550; 82607; 83605; 83690; 83735; 84100; 84145; 85025; 86140; 87040; 87070; 87075; 87086; 87205; 87486; 87581; 87633; 93005; 93306; 96365; 96367; 96368; 96372; 96375; 96413; 96415; 96416; 96523; 99214; 99285; J0612; J0640; J0696; J1100; J1642; J1650; J2405; J2469; J2543; J3372; J7030; J7060; J9190; J9263; Q9967

== ENCOUNTER 2023-06-06 08:00 | Oncology outpatient (recurring) (ONCR) | payer MEDICARE, MEDICAID, SELFPAY ==
[2023-05-23 08:39] VITALS: BP 125/71; PULSE 98; RESP 18; TEMP 37.1; O2SAT 96
[2023-05-23 09:01] LABS: Basophils % 0.6 %; Eosinophils # 0.2 10^3/uL (0.0-0.8); Eosinophils % 2.8 %; Hematocrit 45.4 % (42.0-52.0); Hemoglobin 15.8 g/dL (11.7-16.6); Lymphocytes # 1.9 10^3/uL (0.8-4.8); Mean Corpuscular HGB Conc 34.8 g/dL (30.0-36.0); Mean Corpuscular Hemoglobin 30.3 pg (28.0-34.0); Mean Platelet Volume 9.4 fL (7.4-10.4); Monocytes # 0.6 10^3/uL (0.2-0.9); Monocytes % 9.3 %; Neutrophils # 3.67 10^3/uL (1.8-7.7); Nucleated Red Blood Cells % 0 %; Platelet Count 196 10^3/cmm (130-400); Red Blood Count 5.22 10^6/uL (4.1-5.3); White Blood Count 6.4 10^3/uL (4.0-10.0)
[2023-05-23 09:11] LABS: Alanine Aminotransferase 22 U/L (0-41); Albumin Level 3.6 g/dL (3.5-5.2); Alkaline Phosphatase 85 U/L (40-130); Anion Gap 14.2 (5-19); Blood Urea Nitrogen 17 mg/dL (8-23); Calcium 8.7 mg/dL (8.5-10.5); Carbon Dioxide 22 mmol/L (22-29); Chloride 101 mmol/L (98-107); Globulin 3.4 g/dL (1.3-4.6); Glucose 127 mg/dL (65-115); Osmolality Calculated 279 mOsm/kg (285-295); Potassium 4.2 mmol/L (3.5-5.1); Sodium 133 mmol/L (136-145); Total Bilirubin 0.3 mg/dL (0.15-1.2)
[2023-05-23 09:19] LABS: Aspartate Amino Transferase 5 U/L (0-40)
[2023-05-23] MEDS: dextrose 5% 250 ML 75 ML IV (10:36)
[2023-05-23] MEDS: palonosetron 0.25 mg/5 mL SDV IVP (10:38)
[2023-05-23] MEDS: leucovorin 720 MG in dextrose 5% 250 ML 62.5 MG IV (11:11)
--- NOTE | 2023-05-23 11:15 | PC.NURSE ---
PICC Line Dressing Change PICC line dressing was changed on 05/23/23 at 1030. No redness or irritation noted at insertion site.
[2023-05-23] MEDS: fluorouraciL 4,300 MG, elastomeric pump 1 PUMP in sodium chloride 0.9% (100 ml) 6 ML IV (14:48)
[2023-05-23 14:55] VITALS: BP 114/71; PULSE 79; RESP 18; TEMP 36.6; O2SAT 97
[2023-06-06 07:46] VITALS: BP 123/74; PULSE 80; RESP 18; TEMP 36.6; O2SAT 97
[2023-06-06 07:59] LABS: Basophils # 0.1 10^3/uL (0.0-0.1); Basophils % 0.8 %; Eosinophils # 0.2 10^3/uL (0.0-0.8); Eosinophils % 3.3 %; Hematocrit 45.7 % (42.0-52.0); Hemoglobin 15.8 g/dL (11.7-16.6); Lymphocytes # 2.4 10^3/uL (0.8-4.8); Lymphocytes % 37.4 %; Mean Corpuscular HGB Conc 34.6 g/dL (30.0-36.0); Mean Corpuscular Volume 86.7 fl (80-94); Monocytes # 0.6 10^3/uL (0.2-0.9); Monocytes % 8.9 %; Neutrophils # 3.14 10^3/uL (1.8-7.7); Neutrophils % 49.3 %; Nucleated Red Blood Cells % 0 %; Platelet Count 222 10^3/cmm (130-400); Red Blood Count 5.27 10^6/uL (4.1-5.3); White Blood Count 6.4 10^3/uL (4.0-10.0)
[2023-06-06 08:20] LABS: Alanine Aminotransferase 27 U/L (0-41); Albumin Level 3.7 g/dL (3.5-5.2); Alkaline Phosphatase 79 U/L (40-130); Anion Gap 14.3 (5-19); Aspartate Amino Transferase 24 U/L (0-40); Blood Urea Nitrogen 15 mg/dL (8-23); Calcium 8.8 mg/dL (8.5-10.5); Carbon Dioxide 23 mmol/L (22-29); Chloride 103 mmol/L (98-107); Globulin 3.9 g/dL (1.3-4.6); Glomerular Filtration Rate 96.7 mL/min (90-130); Glucose 120 mg/dL (65-115); Osmolality Calculated 284 mOsm/kg (285-295); Potassium 4.3 mmol/L (3.5-5.1); Sodium 136 mmol/L (136-145); Total Bilirubin 0.4 mg/dL (0.15-1.2); Total Protein 7.6 g/dL (6.6-8.7)
== END 2023-06-18 23:59 | disposition home or self-care (01) ==
PROVIDERS: Internal Medicine Hematology & Oncology; Nurse Practitioner Family; PCP Internal Medicine; Visit Provider Internal Medicine Medical Oncology
DX: C18.7 Malignant neoplasm of sigmoid colon (principal); F17.200 Nicotine dependence, unspecified, uncomplicated; Z90.49 Acquired absence of other specified parts of digestive tract; Z92.21 Personal history of antineoplastic chemotherapy
CPT/HCPCS: 36415; 80053; 85025; 96367; 96368; 96375; 96413; 96415; 96416; 96523; 99214; J0640; J1100; J1642; J2469; J7060; J9190; J9263

== ENCOUNTER 2023-06-19 08:16 | Outpatient (CLI) | payer MEDICARE, MEDICAID, SELFPAY ==
--- NOTE | 2023-06-19 09:30 | CT_ITS ---
WS: [id number] CT ABDOMEN AND PELVIS WITH CONTRAST HISTORY: surveillance, colon cancer history. TECHNIQUE: Imaging performed of the abdomen and pelvis with IV contrast. Single phase imaging of the abdomen. Coronal and sagittal reformats are submitted. All CT scans at [facility] use at [address] one of these dose optimization techniques: automated exposure control; mA and/or kV adjustment per patient size (includes targeted exams where dose is matched to clinical indication); or iterative re construction. IV CONTRAST: Omnipaque 350; 100 mL IV. Oral contrast: Yes. DLP: 624.65 mGy.cm COMPARISON: 05/23/2023 Lower thorax: Hyperexpanded lung bases from emphysema. Benign granuloma at the lung bases. Heart is n ormal size. Small hiatal hernia. Liver/biliary system: Normal size liver with scattered low-attenuation masses consistent with cysts. These are stable since 09/25/2022 no metastatic lesions identified. No bile duct dilatation. Gallbladder: Mildly contracted gallbladder, no stones identified. Pancreas: Normal size pancreas and pancreatic duct. No adjacent inflammation. Spleen: Normal size spleen with several granulomata. Adrenal glands: Normal. Right kidney: Cortical cyst lower pole 8 mm is stable. Left kidney: Normal. Aorta: Mild aneurysmal dilatation infrarenal aorta with a maximum diameter of 3.4 cm which is stable since 09/25/2022. Near circumferential soft plaque. Small caliber celiac axis. Probably a normal varia nt. Unchanged since prior studies. Dominant SMA. Lymphadenopathy: Small lymph nodes identified near the GE junction. These are not increasing in size. Small lymph nodes near the aortic bifurcation have significantly decreased in size since 09/25/2022. No new or enlarging lymph nodes. Free fluid: None. GI tract: Stomach is well distended with oral contrast. No small bowel obstruction. No appendicitis. Marked fecal retention in the RIGHT colon with tortuosity. No obstructive pattern. Sigmoid anastomosi s is identified and unchanged. No recurrent mass or adjacent adenopathy. Abdominal wall: Fat containing umbilical hernia. Pelvis: No free fluid or adenopathy within the pelvis. Bones: L1 concavity superior endplate is stable. There is a lytic area within the posterior L4 verteb ral body which is also stable. No bone expansion or additional new abnormalities. CT/CT abdomen pelvis w con* [id number] IMPRESSION: 1. Stable sigmoid anastomotic sutures. No recurrent mass or adenopathy. 2. Stable infrarenal abdominal aortic aneurysm at 3.4 cm. 3. Stable hepatic cysts. 4. No adrenal mass. 5. No adenopathy or ascites.
[2023-06-19] MEDS: iohexol 350 mg/mL 500 mL Btl (per mL) PO (09:35)
[2023-06-19] MEDS: iohexol 350 mg/mL 500 mL Btl (per mL) IV (09:37)
== END 2023-06-19 08:17 | disposition home or self-care (01) ==
LOC: RAD 08:18
PROVIDERS: PCP Internal Medicine; Visit Provider Nurse Practitioner Family
DX: C18.7 Malignant neoplasm of sigmoid colon (principal)
CPT/HCPCS: 74177; Q9967

== ENCOUNTER → 2023-06-21 10:39 | Outpatient (BNVA) | payer MEDICARE, MEDICAID, SELFPAY | PROVIDERS: PCP Internal Medicine; Visit Provider Thoracic Surgery (Cardiothoracic Vascular Surgery) | DX: I71.43 Infrarenal abdominal aortic aneurysm, without rupture (principal) | CPT/HCPCS: 99203 ==

== ENCOUNTER 2023-09-18 14:17 | Oncology outpatient (recurring) (ONCR) | payer MEDICARE, MEDICAID, SELFPAY ==
[2023-09-18 14:50] VITALS: BP 123/71; PULSE 89; RESP 16; TEMP 36.8; O2SAT 93
[2023-09-18 14:58] LABS: Basophils % 0.5 %; Eosinophils # 0.1 10^3/uL (0.0-0.8); Eosinophils % 1.3 %; Hematocrit 47.2 % (37-53); Lymphocytes # 1.6 10^3/uL (0.8-4.8); Lymphocytes % 18.8 %; Mean Corpuscular HGB Conc 34.5 g/dL (30-55); Mean Corpuscular Hemoglobin 30.6 pg (27-33); Mean Corpuscular Volume 88.6 fl (82-101); Mean Platelet Volume 9.3 fL (7.4-10.4); Monocytes # 0.8 10^3/uL (0.2-0.9); Monocytes % 9.4 %; Neutrophils % 69.6 %; Nucleated Red Blood Cells % 0 %; Platelet Count 203 10^3/cmm (157-399); Red Blood Count 5.33 10^6/uL (3.85-5.65); Red Cell Distribution Width 13.5 % (12.1-15.1); White Blood Count 8.33 10^3/uL (3.29-11.43)
[2023-09-18 15:31] LABS: Carcinoembryonic Antigen 2.1 ng/mL (0.0-4.7)
[2023-09-18 15:42] LABS: Alanine Aminotransferase 23 U/L (0-41); Albumin Level 4.3 g/dL (3.5-5.2); Alkaline Phosphatase 76 U/L (40-130); Anion Gap 13.3 (5-19); Aspartate Amino Transferase 17 U/L (0-40); Blood Urea Nitrogen 20 mg/dL (8-23); Calcium 9.5 mg/dL (8.5-10.5); Carbon Dioxide 25 mmol/L (22-29); Chloride 102 mmol/L (98-107); Globulin 3.1 g/dL (1.3-4.6); Glomerular Filtration Rate 96.7 mL/min (90-130); Glucose 103 mg/dL (65-115); Osmolality Calculated 283 mOsm/kg (285-295); Potassium 5.3 mmol/L (3.5-5.1); Sodium 135 mmol/L (136-145); Total Bilirubin 0.3 mg/dL (0.15-1.2); Total Protein 7.4 g/dL (6.6-8.7)
== END 2023-09-18 23:59 | disposition home or self-care (01) ==
PROVIDERS: Internal Medicine Medical Oncology; PCP Internal Medicine; Visit Provider Internal Medicine Medical Oncology
DX: C18.7 Malignant neoplasm of sigmoid colon (principal); C77.8 Secondary and unspecified malignant neoplasm of lymph nodes of multiple regions; Z79.899 Other long term (current) drug therapy; R53.1 Weakness; R53.0 Neoplastic (malignant) related fatigue; K13.79 Other lesions of oral mucosa; K52.1 Toxic gastroenteritis and colitis; T45.1X5A Adverse effect of antineoplastic and immunosuppressive drugs, initial encounter; F43.21 Adjustment disorder with depressed mood; Z87.891 Personal history of nicotine dependence
CPT/HCPCS: 36415; 80053; 82378; 85025; 99214

== ENCOUNTER 2023-10-26 06:02 | Outpatient (CLI) | payer MEDICARE, MEDICAID, SELFPAY ==
--- NOTE | 2023-10-26 | USCV_ITS ---
TeriStefano Age: 68 Gender: M : 1955 Exam Date: 10/26/2023 06:37 Ordering Phys: Jaswinder Rene MD Technologist: Jaxon Dumas Exam Location: [facility] [place] Indication: retinal aneurysm BP: 104 / 70 HR: 66 Rhythm: Sinus Technical Quality: Suboptimal MEASUREMENTS (Male / Female) Normal Values 2D ECHO LVOT Diameter 2.0 cm LV Ejection Fraction MOD 2C 66.6 % LV Ejection Fraction 2C AL 66.4 % LA Diameter 3.9 cm LA Width 3.7 cm LA Height 5.0 cm RA Width 4.3 cm RA Height 4.9 cm Aorta at Sinotubular Diameter 2.6 cm IVC Diameter 1.3 cm M-MODE Aortic Annulus Diameter 2.7 cm LA Ao Ratio MM 1.3 MV E Point Septal Separation 0.6 cm DOPPLER AV Peak Velocity 137.0 cm/s LVOT Peak Velocity 85.0 cm/s AV Area Cont Eq vti 2.5 cm squared AV Area Cont Eq pk 2.0 cm squared MV Peak Velocity 89.0 cm/s MV Area PHT 2.6 cm squared Mitral E to A Ratio 0.8 MV E' Velocity 35.0 cm/s Mitral E to MV E' Ratio 8.6 Mitral E to LV E' Lateral Ratio 8.9 Mitral E to LV E' Septal Ratio 8.5 TR Peak Velocity 245.8 cm/s TR Peak Gradient 24.2 mmHg TR Mean Velocity 204.7 cm/s TR Mean Gradient 17.9 mmHg TR Velocity Time Integral 57.1 cm Right Atrial Pressure 3.0 mmHg Pulmonary Artery Systolic Pressu 27.2 mmHg PV Peak Velocity 98.3 cm/s RV Acceleration Time 0.1 s RV Ejection Time 0.3 s RV AcT/ET 0.4 FINDINGS Left Ventricle Normal left ventricular size, systolic function and wall thickness, with no regional wall motion abnormalities. Grade I/IV diastolic dysfunction (abnormal relaxation filling pattern), normal to mildly elevated filling pressures. Left ventricular ejection fraction is estimated at 60 %. Right Ventricle Normal right ventricular size and systolic function. Normal right ventricular systolic pressure. Right Atrium Mildly increased right atrial size. Left Atrium Mildly increased left atrial size. Mitral Valve Structurally normal mitral valve without significant stenosis or prolapse. There is no mitral regurgitation. Aortic Valve Structurally normal aortic valve without significant sclerosis or stenosis. There is no aortic regurgitation. Tricuspid Valve Structurally normal tricuspid valve. Trace tricuspid valve regurgitation. Pulmonic Valve Pulmonic valve not well visualized. Pericardium Normal pericardium without effusion. Aorta Normal ascending aorta dimension. IVC The inferior vena cava appears normal. CONCLUSIONS Normal left ventricular size, systolic function and wall thickness, with no regional wall motion abnormalities. Grade I/IV diastolic dysfunction (abnormal relaxation filling pattern), normal to mildly elevated filling pressures. Left ventricular ejection fraction is estimated at 60 %. Mildly increased right atrial size. Mildly increased left atrial size. No change from previous echo dictated [address] Arias Perez MD (Electronically Signed) Final Date: 26 October 2023 07:43 S
--- NOTE | 2023-10-26 | USCV_ITS ---
Stefano Williamson Age: 68 Gender: M : 1955 Exam Date: 10/26/2023 06:56 Ordering Phys: Jaswinder Rene MD Technologist: TARA Exam Location: [facility] [place] Indication: retinal aneurysm Risk Factors: Previous Vascular Surgery: Right Brachial BP: / Left Brachial BP: / Right Left Velocity (cm/s) Spectral Plaque Velocity (cm/s) Spectral Plaque Syst/Diast Broadening Syst/Diast Broadening 95.90/ 23.20 Prox CCA 124.60/ 19.80 103.60/24.30 Mid CCA 66.00 / 14.80 92.60/ 20.90 Distal CCA 74.60 / 21.00 103.40/17.10 Prox ICA 74.60 / 23.30 66.00/ 18.60 Mid ICA 62.10 / 18.60 66.00/ 24.10 Distal ICA 55.90 / 23.30 100.20 ECA 77.70 0.64 ICA/CCA 0.94 Antegrade Vertebral Antegrade 35.70/ 9.30 cm/s 55.90/ 15.50 cm/s Tri Subclavian Tri 75.40 76.00 FINDINGS Comparison: none available. No significant elevation of systolic or diastolic velocities. Waveforms are normal. Focal calcified plaque in the bifurcations. Antegrade veretebral arteries. CONCLUSIONS Bilateral ICA stenosis less than 50%. Mild carotid atherosclerosis. Dr. Lilly Weems DO (Electronically Signed) Final Date: 26 October 2023 08:57 S
== END 2023-10-26 06:03 | disposition home or self-care (01) ==
LOC: RAD 06:02
PROVIDERS: PCP Internal Medicine; Visit Provider Internal Medicine
DX: I72.0 Aneurysm of carotid artery (principal); H35.09 Other intraretinal microvascular abnormalities
CPT/HCPCS: 93306; 93880

== ENCOUNTER 2023-11-20 07:54 | Outpatient (CLI) | payer MEDICARE, MEDICAID, SELFPAY ==
--- NOTE | 2023-11-20 08:30 | USCV_ITS ---
Stefano Williamson Age: 68 Gender: M : 1955 Exam Date: 11/20/2023 08:12 Ordering Phys: Zheng Villasenor MD (Andy) ([email or web address]) Technologist: CT Exam Location: [facility] [place] Indication: aaa HISTORY: Diameter (cm) AP x Transverse x Length Velocity (cm/s) Waveform Prox Aorta: 2.75 x 2.83 x 61.20 Mid Aorta: 2.39 x 2.47 x 64.50 Distal Aorta: 3.26 x 3.44 x 58.00 Right Iliac Prox: 1.38 x 1.38 x 120.30 Left Iliac Prox: 1.49 x 1.49 x 89.20 Stent Prox Landing x x Aneurysmal Sac Max x x Lt Lat Sac Dim Rt Lat Sac Dim Stent Dist Landing x x Right Iliac Stent x x Left Iliac Stent x x Right Renal Art Left Renal Art FINDINGS: CONCLUSIONS Distal AAA measuring 3.3 x 3.4cm AP x Trans Mild atheromatous plaque Normal common iliac arteries Adryan Razo MD (Electronically Signed) Final Date: 20 November 2023 16:56 S
== END 2023-11-20 07:55 | disposition home or self-care (01) ==
LOC: RAD 07:55
PROVIDERS: PCP Internal Medicine; Visit Provider Thoracic Surgery (Cardiothoracic Vascular Surgery)
DX: I71.40 Abdominal aortic aneurysm, without rupture, unspecified (principal); I70.0 Atherosclerosis of aorta
CPT/HCPCS: 93978

== ENCOUNTER → 2023-12-13 08:16 | Outpatient (BNVA) | payer MEDICARE, SELFPAY | PROVIDERS: PCP Internal Medicine; Visit Provider Thoracic Surgery (Cardiothoracic Vascular Surgery) | DX: I71.43 Infrarenal abdominal aortic aneurysm, without rupture (principal) | CPT/HCPCS: 99213 ==

== ENCOUNTER 2024-01-08 11:29 | Oncology outpatient (recurring) (ONCR) | payer MEDICARE, MEDICAID, SELFPAY ==
[2024-01-08 11:43] LABS: Basophils # 0.1 10^3/uL (0.0-0.1); Basophils % 0.5 %; Eosinophils # 0.2 10^3/uL (0.0-0.8); Hematocrit 46.5 % (37-53); Lymphocytes # 3.4 10^3/uL (0.8-4.8); Lymphocytes % 29.7 %; Mean Corpuscular HGB Conc 35.1 g/dL (30-55); Mean Corpuscular Hemoglobin 30.8 pg (27-33); Mean Corpuscular Volume 87.9 fl (82-101); Mean Platelet Volume 9.6 fL (7.4-10.4); Monocytes # 0.6 10^3/uL (0.2-0.9); Monocytes % 5.6 %; Neutrophils # 7.04 10^3/uL (1.8-7.7); Neutrophils % 61.8 %; Nucleated Red Blood Cells % 0 %; Platelet Count 240 10^3/cmm (157-399); Red Blood Count 5.29 10^6/uL (3.85-5.65); Red Cell Distribution Width 13.2 % (12.1-15.1)
[2024-01-08 12:17] LABS: Carcinoembryonic Antigen 2.7 ng/mL (0.0-4.7)
[2024-01-08 12:28] LABS: Alanine Aminotransferase 23 U/L (0-41); Alkaline Phosphatase 75 U/L (40-130); Anion Gap 16.4 (5-19); Aspartate Amino Transferase 18 U/L (0-40); Blood Urea Nitrogen 17 mg/dL (8-23); Calcium 9.3 mg/dL (8.5-10.5); Carbon Dioxide 22 mmol/L (22-29); Chloride 103 mmol/L (98-107); Globulin 3.3 g/dL (1.3-4.6); Glomerular Filtration Rate 112.8 mL/min (90-130); Glucose 95 mg/dL (65-115); Osmolality Calculated 285 mOsm/kg (285-295); Potassium 4.4 mmol/L (3.5-5.1); Sodium 137 mmol/L (136-145); Total Bilirubin 0.2 mg/dL (0.15-1.2); Total Protein 7.3 g/dL (6.6-8.7)
== END 2024-01-17 23:59 | disposition home or self-care (01) ==
PROVIDERS: Nurse Practitioner Family; PCP Internal Medicine; Visit Provider Internal Medicine Medical Oncology
DX: C18.7 Malignant neoplasm of sigmoid colon (principal); G62.9 Polyneuropathy, unspecified; I71.40 Abdominal aortic aneurysm, without rupture, unspecified; Z92.21 Personal history of antineoplastic chemotherapy; Z90.49 Acquired absence of other specified parts of digestive tract; Z53.9 Procedure and treatment not carried out, unspecified reason
CPT/HCPCS: 36415; 80053; 82378; 85025; 99214

== ENCOUNTER 2024-05-13 11:12 | Outpatient (CLI) | payer MEDICARE, MEDICAID, SELFPAY ==
--- NOTE | 2024-05-13 11:15 | USCV_ITS ---
TeriStefano Age: 68 Gender: M : 1955 Exam Date: 05/13/2024 11:19 Ordering Phys: Zheng Villasenor MD (Andy) ([email or web address]) Technologist: ANDERSON Exam Location: [facility] [place] Indication: KNOWN AAA HISTORY: KNOWN AAA Diameter (cm) AP x Transverse x Length Velocity (cm/s) Waveform Prox Aorta: 1.99 x 2.05 x 67.90 Mid Aorta: 2.19 x 2.23 x 29.30 Distal Aorta: 3.10 x 3.33 x 35.90 Right Iliac Prox: 0.95 x 1.09 x 64.90 Left Iliac Prox: 1.42 x 1.36 x 65.80 Stent Prox Landing x x Aneurysmal Sac Max x x Lt Lat Sac Dim Rt Lat Sac Dim Stent Dist Landing x x Right Iliac Stent x x Left Iliac Stent x x Right Renal Art Left Renal Art FINDINGS: Mild diffuse plaques in the abdominal aorta. Infrarenal aorta was found to have a spindle-shaped enlargement with a maximum diameter 3.1 x 3.3 cm Left iliac artery measured 1.462 x 1.36 cm in diameter Right iliac artery measured 1.09 x 0.95 cm in diameter CONCLUSIONS 1. 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 Mild diffuse plaques in the abdominal aorta 3. Slightly ectatic left common iliac artery. No similar previous studies are available for comparison Dr Sommer Peacock MD [facility] (Electronically Signed) Final Date: 15 May 2024 22:16 S
== END 2024-05-13 11:13 | disposition home or self-care (01) ==
LOC: RAD 11:12
PROVIDERS: PCP Internal Medicine; Visit Provider Thoracic Surgery (Cardiothoracic Vascular Surgery)
DX: I71.43 Infrarenal abdominal aortic aneurysm, without rupture (principal)
CPT/HCPCS: 93978

== ENCOUNTER 2024-05-14 12:12 | Outpatient (CLI) | payer MEDICARE, MEDICAID, SELFPAY ==
--- NOTE | 2024-05-14 12:18 | MR_ITS ---
WS: [id number] MRI BRAIN WITHOUT CONTRAST HISTORY: HORIZONTAL NYSTAGMUS COMPARISON: CTA 05/23/2023 TECHNIQUE: Diffusion imaging, multiplanar T1, T2 and FLAIR imaging obtained. No evidence for acute mild small vessel ischemic changes. Infarct or hemorrhage. Chen-white matter di fferentiation is normal. No prior infarct. Mild atrophy. There is no signal abnormality at the brainstem including the jessica or midbrain. No prior infarct. No mass effect. Ventricles and extra-axial spaces are normal. No inferior displacement of cerebellar tonsils. The sella turcica and pituitary gland are unremarkabl e. Dural venous sinuses and [place] of [place] demonstrate no abnormality on this unenhanced studies. Flow voids are difficult to visualize involving the intracranial carotid arteries at the skull base. Paranasal sinuses: Clear. Mastoid air cells: There is significant fluid involving the RIGHT mastoid air cells and extending int o the petrous bone. Calvarium and scalp: Intact. MR/MR head wo con* [id number] IMPRESSION: 1. No acute infarct. 2. No prior infarct or signal abnormality involving the midbrain or jessica. 3. Flow voids especially within the RIGHT intracranial ICA at the skull base a re difficult to visualize. This can be further evaluated by CT angiogram if cli nically thought necessary. 4. Significant RIGHT mastoid effusion.
== END 2024-05-14 12:13 | disposition home or self-care (01) ==
LOC: RAD 12:12
PROVIDERS: PCP Internal Medicine; Visit Provider Internal Medicine
DX: H55.09 Other forms of nystagmus (principal)
CPT/HCPCS: 70551

== ENCOUNTER 2024-06-09 08:26 | Outpatient (CLI) | payer MEDICARE, MEDICAID, SELFPAY ==
--- NOTE | 2024-06-09 08:30 | CT_ITS ---
WS: [id number] CT CHEST, ABDOMEN AND PELVIS WITH CONTRAST HISTORY: Surveillance, colon cancer history. TECHNIQUE: Contiguous 5 mm axial imaging performed through the chest, abdomen and pelvis with IV cont rast, oral contrast has been provided. Coronal and sagittal reformats chest. Coronal and sagittal ref ormats through the abdomen and pelvis. All CT scans at [facility] use at least one of these d ose optimization techniques: automated exposure control; mA and/or kV adjustment per patient size (in cludes targeted exams where dose is matched to clinical indication); or iterative reconstruction. CONTRAST: Omnipaque 350; 100 mL IV. DLP: 1265.89 mGy.cm COMPARISON: 06/19/2023, 05/23/[address]: Mild centrilobular emphysema. There are a few scattered granulomata and micronodules. No ma ss or evidence for metastatic disease. No pneumonia, pericardial or pleural effusions. Normal size he art. Small mediastinal and hilar lymph nodes. Majority of the lymph nodes are calcified. No new or in creasing size of adenopathy. Mild atherosclerosis aorta. Small hiatal hernia. Abdomen CT: Normal size liver with hepatic cysts. A few hepatic granulomata. No bile duct dilatation. Normal spleen with granulomata. Normal gallbladder and common bile duct. Normal pancreas and adrenal glands. No renal obstruction or mass. Mild atherosclerosis abdominal aorta with aneurysmal dilatatio n identified to 3.7 cm. There is a very small celiac axis. Dominant SMA. Normal variant likely. Conjo int SMA and celiac axis is likely. No ascites. No adenopathy. There are small lymph nodes at the GE junction but these have been present on prior studies. Diffuse constipation. Greatest constipation in the RIGHT colon. Negative appendix. Surgical anastomosis in the sigmoid with no recurrent mass and no obstruction. Pelvic CT: No free fluid. No adenopathy. Negative urinary bladder. Mild anterior wedging of L1 CT/CT chest abdpel w/*[id number] IMPRESSION: 1. No evidence for metastatic disease to the chest, abdomen or pelvis. 2. Sigmoid anastomosis appears intact with no recurrent mass. 3. No ascites. 4. Hepatic cysts. 5. Stable infrarenal abdominal aortic aneurysm to 3.5 cm.
[2024-06-09 09:12] LABS: Blood Urea Nitrogen 16 mg/dL (8-23); Glomerular Filtration Rate 84.2 mL/min (90-130)
[2024-06-09] MEDS: iohexol 350 mg/mL 500 mL Btl (per mL) PO (09:16)
[2024-06-09] MEDS: iohexol 350 mg/mL 500 mL Btl (per mL) IV (09:41)
== END 2024-06-09 08:27 | disposition home or self-care (01) ==
LOC: RAD 08:26
PROVIDERS: PCP Internal Medicine; Visit Provider Nurse Practitioner Family
DX: C18.7 Malignant neoplasm of sigmoid colon (principal); K59.00 Constipation, unspecified; I71.43 Infrarenal abdominal aortic aneurysm, without rupture; K44.9 Diaphragmatic hernia without obstruction or gangrene; Q44.6 Cystic disease of liver
CPT/HCPCS: 71260; 74177; 82565; 84520; Q9967

== ENCOUNTER 2024-07-08 12:16 | Oncology outpatient (recurring) (ONCR) | payer MEDICARE, MEDICAID, SELFPAY ==
[2024-07-08 12:47] LABS: Basophils # 0.1 10^3/uL (0.0-0.1); Basophils % 0.5 %; Eosinophils # 0.3 10^3/uL (0.0-0.8); Eosinophils % 3.1 %; Hematocrit 46.7 % (37-53); Lymphocytes # 2.2 10^3/uL (0.8-4.8); Lymphocytes % 23.9 %; Mean Corpuscular HGB Conc 34.5 g/dL (30-55); Mean Corpuscular Volume 87.1 fl (82-101); Mean Platelet Volume 9.8 fL (7.4-10.4); Monocytes # 0.7 10^3/uL (0.2-0.9); Monocytes % 7.4 %; Neutrophils # 5.99 10^3/uL (1.8-7.7); Neutrophils % 64.9 %; Nucleated Red Blood Cells % 0 %; Platelet Count 260 10^3/cmm (157-399); Red Blood Count 5.36 10^6/uL (3.85-5.65); Red Cell Distribution Width 13.5 % (12.1-15.1); White Blood Count 9.24 10^3/uL (3.29-11.43)
[2024-07-08 13:14] LABS: Carcinoembryonic Antigen 2.4 ng/mL (0.0-4.7)
[2024-07-08 13:25] LABS: Alanine Aminotransferase 25 U/L (0-41); Albumin Level 3.9 g/dL (3.5-5.2); Alkaline Phosphatase 80 U/L (40-130); Aspartate Amino Transferase 19 U/L (0-40); Blood Urea Nitrogen 16 mg/dL (8-23); Calcium 8.9 mg/dL (8.5-10.5); Carbon Dioxide 20 mmol/L (22-29); Chloride 105 mmol/L (98-107); Globulin 3.2 g/dL (1.3-4.6); Glomerular Filtration Rate 112.5 mL/min (90-130); Glucose 103 mg/dL (65-115); Osmolality Calculated 287 mOsm/kg (285-295); Sodium 138 mmol/L (136-145); Total Bilirubin 0.2 mg/dL (0.15-1.2); Total Protein 7.1 g/dL (6.6-8.7)
[2024-07-08 13:39] LABS: Anion Gap 17.7 (5-19); Potassium 4.7 mmol/L (3.5-5.1)
[2024-07-08 15:41] LABS: Prostate Specific Antigen Scr 1.05 ng/mL (0-4); Thyroid Stimulating Hormone 1.43 uIU/mL (0.27-4.20); Vitamin B12 895 pg/mL (232-1245)
== END 2024-07-19 23:59 | disposition home or self-care (01) ==
PROVIDERS: Nurse Practitioner Family; PCP Internal Medicine; Visit Provider Internal Medicine Medical Oncology
DX: C18.7 Malignant neoplasm of sigmoid colon (principal); Z12.5 Encounter for screening for malignant neoplasm of prostate; R53.83 Other fatigue; G47.19 Other hypersomnia; Z79.899 Other long term (current) drug therapy
CPT/HCPCS: 36415; 80053; 82378; 82607; 84443; 85025; 99214; G0103

== ENCOUNTER 2025-01-09 08:33 | Oncology outpatient (recurring) (ONCR) | payer MEDICARE, MEDICAID, SELFPAY ==
[2025-01-09 08:56] LABS: Basophils # 0.1 10^3/uL (0.0-0.1); Basophils % 0.4 %; Eosinophils # 0.1 10^3/uL (0.0-0.8); Eosinophils % 0.7 %; Hematocrit 48.9 % (37-53); Lymphocytes # 2.5 10^3/uL (0.8-4.8); Lymphocytes % 21.7 %; Mean Corpuscular HGB Conc 34.8 g/dL (30-55); Mean Corpuscular Volume 86.2 fl (82-101); Mean Platelet Volume 9.8 fL (7.4-10.4); Monocytes # 0.6 10^3/uL (0.2-0.9); Monocytes % 5.4 %; Neutrophils # 8.17 10^3/uL (1.8-7.7); Neutrophils % 71.4 %; Nucleated Red Blood Cells % 0 %; Platelet Count 251 10^3/cmm (157-399); Red Blood Count 5.67 10^6/uL (3.85-5.65); Red Cell Distribution Width 13.3 % (12.1-15.1); White Blood Count 11.46 10^3/uL (3.29-11.43)
[2025-01-09 09:22] LABS: Carcinoembryonic Antigen 2.7 ng/mL (0.0-4.7)
[2025-01-09 09:34] LABS: Alanine Aminotransferase 15 U/L (0-41); Albumin Level 4.1 g/dL (3.5-5.2); Alkaline Phosphatase 84 U/L (40-130); Anion Gap 18.9 (5-19); Aspartate Amino Transferase 15 U/L (0-40); Blood Urea Nitrogen 18 mg/dL (8-23); Calcium 9.2 mg/dL (8.5-10.5); Carbon Dioxide 21 mmol/L (22-29); Chloride 99 mmol/L (98-107); Globulin 3.3 g/dL (1.3-4.6); Glomerular Filtration Rate 84.2 mL/min (90-130); Glucose 96 mg/dL (65-115); Osmolality Calculated 280 mOsm/kg (285-295); Potassium 4.9 mmol/L (3.5-5.1); Sodium 134 mmol/L (136-145); Total Bilirubin 0.4 mg/dL (0.15-1.2); Total Protein 7.4 g/dL (6.6-8.7)
== END 2025-01-16 23:59 | disposition home or self-care (01) ==
PROVIDERS: Internal Medicine Medical Oncology; PCP Internal Medicine; Visit Provider Nurse Practitioner Family
DX: Z08 Encounter for follow-up examination after completed treatment for malignant neoplasm (principal); Z85.038 Personal history of other malignant neoplasm of large intestine; R39.198 Other difficulties with micturition; R53.83 Other fatigue; F17.210 Nicotine dependence, cigarettes, uncomplicated; J44.9 Chronic obstructive pulmonary disease, unspecified; Z90.49 Acquired absence of other specified parts of digestive tract; Z92.21 Personal history of antineoplastic chemotherapy
CPT/HCPCS: 36415; 80053; 82378; 85025; 99214

== ENCOUNTER 2025-04-23 05:49 | Inpatient (IN) | payer MEDICARE, MEDICAID, SELFPAY ==
--- OUTSIDE RECORDS SUMMARY | 2024-12-08 05:00 | XMS_ITS ---
Author Organization [facility] Address [address] [place] [address] Care Team Providers Care Plaster Lather Name Role Phone Fritz Rene Primary Care Provider [phone] REASON FOR VISIT 6 MONTH F/U Encounters Encounter Location Date Provider Diagnosis [facility] [address] [place] [phone] 12/08/2024 Fritz Rene Plan Of Treatment No Information Progress Notes * Stefano COLEMAN ADOB:1955 (69 yo M)Acc No.[id number]:12/08/2024 Progress Notes Patient: Stefano BUCKNER Provider: Santiago Rene MD :1955 A ge:69 Y S ex:Male Date:12/08/2024 Address:[address] [place], [place] [id number] Subjective: * Chief Complaints: * 1 . 6 MONTH F/U. * Medical History: Objective: * Vitals: Assessment: Plan: * Treatment: Forms: * Billing Information: * Visit Code: * Procedure Codes: Care Plan Details* * Electronic signature of Licha Rene MD on 04/23/2025 at 03:47 PM CDT Sign off status: Pending * Provider: Santiago Rene MD Date: 12/08/2024 Generated for Tristen ng/Faanabelg/eTransmitting on: 0 04/23/2025 03:47 PM CDT
[2025-04-23] VITALS (65 sets, daily range): BP systolic 115–188; BP diastolic 74–126; PULSE 58–92; RESP 11–26; TEMP 36.4–36.9; O2SAT 90–99; BMI 31.7
--- NOTE | 2025-04-23 05:53 | ECG_ITS ---
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
--- NOTE | 2025-04-23 06:00 | XRR_ITS ---
PROCEDURE INFORMATION: Exam: XR Chest Exam date and time: 04/23/2025 7:00 AM Age: 69 years old Clinical indication: Chest wall pain; Additional info: Chest pain TECHNIQUE: Imaging protocol: Radiologic exam of the chest. Views: 1 view. COMPARISON: CT chest abdpel w/*[id number] 06/09/2024 9:33 AM FINDINGS: Lungs: Unremarkable. No consolidation. Pleural spaces: There is a large pneumothorax on the left. Heart/Mediastinum: Unremarkable. No cardiomegaly. Bones/joints: Unremarkable. XR/XR chest 1V portable [id number] IMPRESSION: 1. Large pneumothorax on the left. COMMENT: THIS REPORT CONTAINS FINDINGS THAT MAY BE CRITICAL TO PATIENT CARE. The exam findings were verbally communicated by me to LULY DYER via telephone conference at 7:25 AM CDT on 04/23/2025. The findings were acknowledged and understood.
--- NOTE | 2025-04-23 06:11 | W.ED.CHESTPA ---
HPI - Chest Pain General: Chief Complaint: Chest Pain Stated Complaint: cp arm pain sob Time Seen by Provider: 04/23/25 06:08 History of Present Illness: 69-year-old male presents emergency room with complaint of substernal chest pain. He has not had any prior. It woke him up from sleep. He had not had any exertional chest pain in the last couple of weeks. States it is worse when he moves or when he takes a deep breath. No fever sweats or chills he has a baseline productive cough of clear phlegm that is unchanged. He denies any hemoptysis. He has no history of any coronary disease pain radiates into the back of his neck and the base of his head but not into the jaw. No radiation into the arms. Describes it as a pressure-like sensation. Associated symptoms: Reports dyspnea; Deny abdominal pain or fever(s) Related Data Home Medications ?Medication ?Instructions ?Recorded ?Confirmed ascorbate calcium (vitamin C) 500 500 mg PO DAILY 12/11/22 04/23/25 mg tablet magnesium citrate 100 mg tablet 100 mg PO DAILY 12/11/22 04/23/25 multivitamin 1 tab PO DAILY 12/11/22 04/23/25 aspirin 325 mg tablet 325 mg PO DAILY 05/24/23 04/23/25 escitalopram oxalate 20 mg tablet 20 mg PO DAILY 04/23/25 04/23/25 Previous Rx's ?Medication ?Instructions ?Recorded lorazepam 1 mg tablet 1 mg PO .Q6-8H PRN anxiety #30 tabs 06/12/23 tamsulosin 0.4 mg capsule 0.4 mg PO DAILY #30 caps 07/08/24 nicotine 14 mg/24 hr daily 1 patch transdermal DAILY 7 days 04/26/25 transdermal patch #7 ea Allergies Allergy/AdvReac Type Severity Reaction Status Date / Time No Known Allergies Allergy Verified 01/09/25 09:02 Review of Systems Const: Denies: fever(s) or chills Card: Reports: chest pain; Denies: swelling of feet/ankles or orthopnea Resp: Reports: dyspnea and productive cough (Baseline chronic cough); Denies: change in phlegm color or hemoptysis GI: Denies: abdominal pain : Denies: dysuria, urinary frequency or urinary urgency Musc: Denies: neck pain or back pain Skin/Breast: Denies: rash PFSH ED PFSH: Medical History (Updated 04/27/25 @ 08:06 by Nader Hicks DO) Adenocarcinoma of sigmoid colon Benign prostatic hyperplasia Anxiety and depression COPD (chronic obstructive pulmonary disease) Abdominal aortic aneurysm (AAA), 35-39 mm diameter Colon cancer Surgical History (Updated 04/27/25 @ 00:00 by RADHA Sales) History of tonsillectomy History of colonoscopy (09/25/22) Status post partial resection of colon (11/01/22) Robotic assisted low anterior resection Social History Smoking and tobacco/nicotine status: current every day tobacco/nicotine user cigarettes Packs smoked per day: 1 Years cigarettes smoked: 45 Alcohol intake: current Alcohol intake frequency: holidays/special occasions only Substance/Drug Use: current Substance/Drug use frequency: few times a month Physical Exam Const: GENERAL APPEARANCE: cooperative ORIENTATION/CONSCIOUSNESS: Yes awake, Yes oriented to person, Yes oriented to place and Yes oriented to time HENMT: COMMON NORMALS: normocephalic, atraumatic and hearing grossly normal bilaterally HEAD & SCALP: normocephalic and atraumatic Resp: COMMON NORMALS: normal respiratory effort, No retractions, No use of accessory muscles and clear to auscultation bilaterally AUSCULTATION: clear to auscultation bilaterally Cardio: COMMON NORMALS: regular rate, regular rhythm and No murmurs present (Cardio) RATE: regular rate RHYTHM: regular rhythm GI: COMMON NORMALS: Soft to palpation and No hepatosplenomegaly present AUSCULTATION: Yes normoactive bowel sounds PALPATION: Yes Soft to palpation, No Tenderness to palpation present (GI), No Guarding due to palpation present (GI) and Yes No hepatosplenomegaly present Extremity: COMMON NORMALS: normal to inspection, capillary refill normal, no clubbing, cyanosis or edema, no calf tenderness and no pedal edema Neuro: SENSORIUM/ORIENTATION: Yes oriented to person, Yes oriented to place and Yes oriented to time Skin: COMMON NORMALS: no rashes or lesions noted GENERAL SKIN EXAM: no rashes or lesions noted Procedures Chest Tube Chest Tube 1: Chest Tube Location: left, mid axillary line and fourth interspace Size of Tube (cm): 28 Chest Tube Prep: Yes betadine prep and sterile drapes applied Local Anesthetic: lidocaine 1% Amount of anesthesia used (mL): 10 Incision Made With: #10 blade Post Procedure: sutured to skin and sterile dressing applied Tube Drainage: none Post Procedure CXR?: Yes Patient Tolerated Procedure: Yes Progress: Complete resolution of pneumothorax Procedural Sedation Indication: other (Chest tube placement) ASA Class: I Time of Last PO Intake: 18:00 Preparation: instrumentation fitter applied, pulse oximeter, supplemental O2 applied, suction/airway equipment at bedside and IV secured Fentanyl: IV (Titrated to a total dose of 200 mcg) Midazolam: IV Midazolam dose (mg): 4 Patient Tolerated Procedure: well Complications: none Course Vital Signs: Vital signs: Vital Signs Temperature 98.4 F 04/26/25 02:00 Pulse Rate 80 04/26/25 10:00 Respiratory Rate 21 H 04/26/25 10:00 Blood Pressure 135/78 04/26/25 09:51 Pulse Oximetry 95 04/26/25 10:27 Oxygen Delivery Me thod Room Air 04/26/25 10:27 Oxygen Flow Rate 2 04/25/25 10:00 MDM - Chest Pain Medical Decision Making Spontaneous pneumothorax with large tension pneumothorax which patient was tolerating relatively well. He was having chest pain. Chest tube placed without difficulty under conscious sedation good resolution of pneumothorax discussed with general surgery will admit for chest tube management. They will consult hospitalist. Medical Records I reviewed the patient's medical records. Lab Data I reviewed the patient's lab results. 04/25/25 03:46 04/26/25 04:58 Radiology Impressions Chest CTA 04/23/25 08:46 IMPRESSION: 1. No evidence of pulmonary embolus 2. LEFT pneumothorax has essentially resolved after chest tube placement. Tiny residual trace pneumothorax anteriorly. Chest tube in good position. 3. Lungs are well aerated. 4. Moderate esophageal hiatal hernia. Chest X-Ray 04/26/25 06:23 IMPRESSION: 1. No acute findings. Laboratory Results WBC 10.48 10^3/uL (3.29-11.43) 04/23/25 06:00 RBC 5.50 10^6/uL (3.85-5.65) 04/23/25 06:00 Hgb 16.70 g/dL (11.27-16.99) 04/23/25 06:00 Hct 48.1 % (37-53) 04/23/25 06:00 MCV 87.5 fl (82-101) 04/23/25 06:00 MCH 30.4 pg (27-33) 04/23/25 06:00 MCHC 34.7 g/dL (30-55) 04/23/25 06:00 RDW 13.5 % (12.1-15.1) 04/23/25 06:00 Plt Count 248 10^3/cmm (157-399) 04/23/25 06:00 MPV 10.1 fL (7.4-10.4) 04/23/25 06:00 Neut % (Auto) 65.7 % 04/23/25 06:00 Lymph % (Auto) 26.1 % 04/23/25 06:00 [place] % (Auto) 6.1 % 04/23/25 06:00 Eos % (Auto) 1.3 % 04/23/25 06:00 Baso % (Auto) 0.4 % 04/23/25 06:00 Neut # (Auto) 6.88 10^3/uL (1.8-7.7) 04/23/25 06:00 Lymph # (Auto) 2.7 10^3/uL (0.8-4.8) 04/23/25 06:00 [place] # (Auto) 0.6 10^3/uL (0.2-0.9) 04/23/25 06:00 Eos # (Auto) 0.1 10^3/uL (0.0-0.8) 04/23/25 06:00 Baso # (Auto) 0.0 10^3/uL (0.0-0.1) 04/23/25 06:00 Nucleated RBC % (auto) 0 % 04/23/25 06:00 Nucleated RBCs # 0.0 /100WBC 04/23/25 06:00 Sodium 137 mmol/L (136-145) 04/23/25 06:00 Potassium 4.3 mmol/L (3.5-5.1) 04/23/25 06:00 Chloride 103 mmol/L (98-107) 04/23/25 06:00 Carbon Dioxide 25 mmol/L (22-29) 04/23/25 06:00 Anion Gap 13.3 (5-19) 04/23/25 06:00 BUN 17 mg/dL (8-23) 04/23/25 06:00 Creatinine 0.8 mg/dL (0.7-1.2) 04/23/25 06:00 GFR Calculation 96.4 mL/min (90-130) 04/23/25 06:00 Glucose 92 mg/dL (65-115) 04/23/25 06:00 Calculated Osmolality 285 mOsm/kg (285-295) 04/23/25 06:00 Calcium 9.0 mg/dL (8.5-10.5) 04/23/25 06:00 Total Bilirubin 0.4 mg/dL (0.15-1.2) 04/23/25 06:00 AST 13 U/L (0-40) 04/23/25 06:00 ALT 14 U/L (0-41) 04/23/25 06:00 Alkaline Phosphatase 79 U/L (40-130) 04/23/25 06:00 Troponin T Baseline 11 ng/L (0-15) 04/23/25 06:00 Troponin T 120 Minute 9.07 ng/L (0-15) 04/23/25 08:30 Delta Troponin T -1.93 ABS# (0-10) L 04/23/25 08:30 Total Protein 7.6 g/dL (6.6-8.7) 04/23/25 06:00 Albumin 4.1 g/dL (3.5-5.2) 04/23/25 06:00 Globulin 3.5 g/dL (1.3-4.6) 04/23/25 06:00 All radiology interpretation(s) finalized by discharge EKG Data EKG 1: Interpretation: EKG April 23, 2025 0 553 sinus rhythm no acute ST changes. Rate of 87 [place] interval of 154. Compared with the EKG of 05/23/2023 that EKG showed sinus tachycardia but otherwise is unchanged. Discharge Plan Discharge Patient Disposition: Admitted As Inpatient Admit Provider: Mary Whitlock Clinical Impression: Pneumothorax, spontaneous, tension, COPD (chronic obstructive pulmonary disease) Condition: Stable Discharge Diet: Usual diet Discharge Activity: Resume usual activity Coding Level of Care Code ED Revenue Cycle Specialist for Chg Ellyn
[2025-04-23 06:27] LABS: Basophils % 0.4 %; Eosinophils # 0.1 10^3/uL (0.0-0.8); Eosinophils % 1.3 %; Hematocrit 48.1 % (37-53); Lymphocytes # 2.7 10^3/uL (0.8-4.8); Lymphocytes % 26.1 %; Mean Corpuscular HGB Conc 34.7 g/dL (30-55); Mean Corpuscular Hemoglobin 30.4 pg (27-33); Mean Corpuscular Volume 87.5 fl (82-101); Mean Platelet Volume 10.1 fL (7.4-10.4); Monocytes # 0.6 10^3/uL (0.2-0.9); Monocytes % 6.1 %; Neutrophils # 6.88 10^3/uL (1.8-7.7); Neutrophils % 65.7 %; Nucleated Red Blood Cells % 0 %; Platelet Count 248 10^3/cmm (157-399); Red Cell Distribution Width 13.5 % (12.1-15.1); White Blood Count 10.48 10^3/uL (3.29-11.43)
[2025-04-23 06:29] LABS: Troponin(5th) Baseline 11 ng/L (0-15)
[2025-04-23 06:43] LABS: Alanine Aminotransferase 14 U/L (0-41); Albumin Level 4.1 g/dL (3.5-5.2); Alkaline Phosphatase 79 U/L (40-130); Anion Gap 13.3 (5-19); Aspartate Amino Transferase 13 U/L (0-40); Blood Urea Nitrogen 17 mg/dL (8-23); Carbon Dioxide 25 mmol/L (22-29); Chloride 103 mmol/L (98-107); Creatinine Clr Calc Pharmacy 112.8159; Globulin 3.5 g/dL (1.3-4.6); Glomerular Filtration Rate 96.4 mL/min (90-130); Glucose 92 mg/dL (65-115); Osmolality Calculated 285 mOsm/kg (285-295); Potassium 4.3 mmol/L (3.5-5.1); Sodium 137 mmol/L (136-145); Total Bilirubin 0.4 mg/dL (0.15-1.2); Total Protein 7.6 g/dL (6.6-8.7)
[2025-04-23] MEDS: fentaNYL 50 mcg/mL INJ 2mL IVP ×2 (07:22→09:31)
[2025-04-23] MEDS: fentaNYL 50 mcg/mL INJ 2mL 100 MCG IVP (08:09)
[2025-04-23] MEDS: midazolam 1 mg/mL INJ 2 mL 4 MG IVP (08:09)
--- NOTE | 2025-04-23 08:10 | PC.NURSE ---
Conscious Sedation/Chest Tube Insertion: this nurse, ED physician, respiratory therapist at bedside; x2 suction available, adult ambu bag available; pt on cardiac/hemodynamic monitoring; bilateral large bore IVs patent; pt placed on 2L NC prior to procedure start time. Procedure Start: @0743 Procedure Stop: @0755 @0735: consent form signed @0742: time out completed @0743: 3mg Versed administered @0745: 50mcg Fentanyl administered @0747: 1mg Versed administered @0755: chest tube inserted by ED physician @0758: chest tube connected to Pleur-evac, Pleur-evac connected to suction tubing @0805: xray obtained, ED physician confirmed placement @0805: suction turned to 40mmHG per verbal order of ED physician @0805: 50mcg Fentanyl @0806: this nurse, ED physician confirmed tube securement, connection to Pleur-evac/wall suction. pt alert to sound @0806 but drowsy; at bedside post procedure, educated on how procedure went, pt status, and next steps for transfer
--- NOTE | 2025-04-23 08:20 | XR_ITS ---
WS: [id number] XR chest 1V portable [id number] REASON FOR EXAM: CHEST TUBE FINDINGS: A left chest tube has been placed with reexpansion of the left lung without visualized residual pneumothorax. There is a small amount of subcutaneous emphysema in the soft tissues of the left chest. The right chest is unchanged compared to the previous examination. XR/XR chest 1V portable [id number] IMPRESSION: Left chest tube placement with essentially complete resolution of previously de monstrated left pneumothorax.
--- NOTE | 2025-04-23 08:46 | CT_ITS ---
WS: [id number] CTA OF THE CHEST WITH PULMONARY EMBOLISM PROTOCOL TECHNIQUE: High-resolution contrast enhanced CTA of the chest with coronal and sagittal reformatted images with pulmonary embolism protocol. MIP images are also reviewed. CLINICAL INFORMATION: pneumothorax COMPARISON: None. DLP: 1035.[address] scans at [facility] use at least one of these dose optimization techniques: automated exposure control; mA and/or kV adjustment per patient size (includes targeted exams where dose is matched to clinical indication); or iterative reconstruction. FINDINGS: LEFT chest tube with tip in the anterior superior LEFT lung. Lung has reinflated compared to prior radiograph. Tiny residual trace pneumothorax anteriorly. Subcutaneous emphysema along the LEFT chest wall from chest tube placement. Proximal main pulmonary arteries are normal. Normal segmental and subsegmental pulmonary arteries. No evidence of pulmonary embolus. Normal caliber thoracic aorta. Aortic calcification. Coronary calcification. Calcified RIGHT hilar and subcarinal lymph nodes. No mediastinal or hilar lymphadenopathy. Partially visualized hepatic cysts. Adrenal glands are normal. Moderate esophageal hiatal hernia. CT/CT angio chest PE protcl [id number] IMPRESSION: 1. No evidence of pulmonary embolus 2. LEFT pneumothorax has essentially resolved after chest tube placement. Tiny residual trace pneumothorax anteriorly. Chest tube in good position. 3. Lungs are well aerated. 4. Moderate esophageal hiatal hernia.
--- NOTE | 2025-04-23 08:57 | ECG_ITS ---
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
[2025-04-23 08:58] LABS: Troponin 5 2HR 9.07 ng/L (0-15)
[2025-04-23 09:01] LABS: Troponin 5 2HR Delta -1.93 ABS# (0-10)
--- NOTE | 2025-04-23 10:24 | PC.NURSE ---
accepting physician called, pending CT (PE protocol) before admission; pt transported to CT on monitoring specialist with ED nurse.
[2025-04-23] MEDS: iohexol 350 mg/mL 500 mL Btl (per mL) IV (10:26)
--- NOTE | 2025-04-23 10:39 | PC.NURSE ---
pt transported back to ED from CT by this nurse
[2025-04-23] MEDS: HYDROmorphone 0.5 MG/0.5 ML INJ IVP ×2 (10:43→12:05)
--- NOTE | 2025-04-23 11:38 | ECG_ITS ---
[facility] Test Date: 2025-04-23 Pat Name: Stefano Williamson Department: Room: Gender: Male Director Cardiovascular: : 1955 Requested By: Nader Bronson Order Number: [id number] Reading MD: EPIFANIO CANNON Measurements Intervals [place] Rate: 74 P: 74 [place]: 176 QRS: 45 QRSD: 89 T: 56 QT: 399 QTc: 445 Interpretive Statements SINUS RHYTHM LOW QRS VOLTAGE IN PRECORDIAL LEADS [QRS DEFLECTION < 1.0 mV IN CHEST LEADS] Compared to ECG 04/23/2025 08:57:21 No significant changes Electronically Signed On 04-25-2025 23:56:50 CDT by EPIFANIO CANNON [email or web address] [id number]
--- NOTE | 2025-04-23 13:05 | PC.NURSE ---
updated family on pt transfer to ICU, family states will arrive to visit this afternoon, denies any questions.
--- NOTE | 2025-04-23 14:26 | P.HP_ITS ---
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 Chest x-ray demonstrated a left-sided pneumothorax. A 20 Guyanese left-sided chest tube was placed by the ER physician. Post procedure chest x-ray demonstrated complete resolution of the pneumothorax. The patient has not had a previous spontaneous pneumothorax in the past. He is however a chronic every day smoker. He does have a diagnosis of COPD. He denied fever, chills, hemoptysis, nausea or vomiting. He did confirm a chronic productive cough that is clear/phlegm. He did confirm worsened chest wall pain (worse on the left) with deep inspiration. Review of Systems 2 General: Reports: 10 or more systems reviewed and unremarkable except in HPI and below Medications/Allergies Home Medications ?Medication ?Instructions ?Recorded ?Confirmed ?Last Taken ?Type ascorbate calcium (vitamin C) 500 500 mg PO DAILY 11/2004/23/25 04/22/25 History mg tablet magnesium citrate 100 mg tablet 100 mg PO DAILY 04/23/25 04/22/25 History multivitamin 1 tab PO DAILY 12/11/2204/1204/22/25 History aspirin 325 mg tablet 325 mg PO DAILY 05/24/2304/1204/22/25 History lorazepam 1 mg tablet 1 mg PO .Q6-8H PRN anxiety # 30 tabs 06/12/23 04/23/25 04/22/25 Rx tamsulosin 0.4 mg capsule 0.4 mg PO DAILY #30 caps 04/23/25 04/22/25 Rx escitalopram oxalate 20 mg tablet 20 mg PO DAILY 04/2304/23/25 04/22/25 History Allergies Allergy/AdvReac Type Severity Reaction Status Date / Time No Known Allergies Allergy Verified 01/09/25 09:02 PFSH Acute 2 PFSH: Medical History (Updated 04/23/25 @ 14:49 by Mary Whitlock MD) Benign prostatic hyperplasia Anxiety and depression COPD (chronic obstructive pulmonary disease) Abdominal aortic aneurysm (AAA), 35-39 mm diameter Colon cancer Surgical History History of tonsillectomy History of colonoscopy (09/25/22) Status post partial resection of colon (11/01/22) Robotic assisted low anterior resection Social History Smoking and tobacco/nicotine status: current every day tobacco/nicotine user cigarettes Packs smoked per day: 1 Years cigarettes smoked: 45 Alcohol intake: current Alcohol intake frequency: holidays/special occasions only Substance/Drug Use: current Substance/Drug use frequency: few times a month Vitals/I&O/Wt Last Vital Signs Temp 98.1 F 04/23/25 05:50 Pulse 83 04/23/25 12:45 Resp 22 H 04/23/25 12:45 BP 150/88 04/23/25 12:45 Pulse Ox 94 04/23/25 12:45 O2 Del Method Room Air 04/23/25 05:50 Weight last 48 hrs Weight 234 lb Physical Exam 2 Const: COMMON NORMALS: no acute distress and patient oriented x3 OTHER: Obese body habitus HENMT: COMMON NORMALS: normocephalic and atraumatic Resp: COMMON NORMALS: normal respiratory effort and No use of accessory muscles OTHER: Apparent discomfort with deep inspiration. GI: COMMON NORMALS: Soft to palpation and non-tender OTHER: Obese body habitus Neuro: COMMON NORMALS: patient oriented x3 and CN's II-XII intact bilaterally Psych: COMMON NORMALS: mental status grossly normal, normal affect and speech normal Data 04/23/25 06:00 04/23/25 06:00 CT Chest: Radiologist's impression: CTA OF THE CHEST WITH PULMONARY EMBOLISM PROTOCOL TECHNIQUE: High-resolution contrast enhanced CTA of the chest with coronal and sagittal reformatted images with pulmonary embolism protocol. MIP images are also reviewed. CLINICAL INFORMATION: pneumothorax COMPARISON: None. DLP: 1035.[address] [facility] use at least one of these dose optimization techniques: automated exposure control; mA and/or kV adjustment per patient size (includes targeted exams where dose is matched to clinical indication); or iterative reconstruction. FINDINGS: LEFT chest tube with tip in the anterior superior LEFT lung. Lung has reinflated compared to prior radiograph. Tiny residual trace pneumothorax anteriorly. Subcutaneous emphysema along the LEFT chest wall from chest tube placement. Proximal main pulmonary arteries are normal. Normal segmental and subsegmental pulmonary arteries. No evidence of pulmonary embolus. Normal caliber thoracic aorta. Aortic calcification. Coronary calcification. Calcified RIGHT hilar and subcarinal lymph nodes. No mediastinal or hilar lymphadenopathy. Partially visualized hepatic cysts. Adrenal glands are normal. Moderate esophageal hiatal hernia. CT/CT angio chest PE protcl [id number] IMPRESSION: 1. No evidence of pulmonary embolus 2. LEFT pneumothorax has essentially resolved after chest tube placement. Tiny residual trace pneumothorax anteriorly. Chest tube in good position. 3. Lungs are well aerated. 4. Moderate esophageal hiatal hernia. A&P Assessment and plan (1) Spontaneous pneumothorax: -- Large spontaneous left-sided pneumothorax status post tube placement of 20 Guyanese thoracostomy tube by ER physician, with history of possible COPD/current everyday smoker - extent of underlying pulmonary disease unknown -- This patient is at risk for failure of conservative/medical management, if he fails conservative/medical management and the pneumothorax fails to remain resolved or he develops loculations/empyema he will need a possible VATS procedure, decortication requiring a thoracic surgeon and/or pulmonology consultation -- I discussed this in detail with the patient, and he is open to transfer to a higher level of care if indicated -- Keep chest tube to wall suction -- Monitor chest tube for air leaks -- Continuous supplemental oxygen via nasal cannula at 2 L for at least first 24 hours -- Continuous cardiac monitoring for at least the first 24 hours -- Serial morning chest x-rays or [id number] chest x-rays if acute respiratory change noted -- Incentive spirometry/pulmonary toilet - respiratory therapy consulted -- a.m. CMP, CBC, and CRP -- Physical therapy evaluation and treat -- Ambulate 3 times daily -- Biddle 5?3 25 as needed moderate to severe pain -- IV morphine for breakthrough pain -- Stool softener ordered -- Consider muscle relaxant if the above pain control management is ineffective -- SCDs and chemical DVT prophylaxis -- Consult hospitalist for medical management (2) Abdominal aortic aneurysm (AAA), 35-39 mm diameter: (3) Adenocarcinoma of sigmoid colon: (4) Peripheral neuropathy: (5) Immunocompromised: (6) Maintenance chemotherapy: (7) Tobacco abuse: (8) Dyspnea: PDMP PDMP Reviewed: Not Reviewed Attestations 2 Medical Necessity Statement*: Continuous monitoring of vital signs, continuous pulse oximetry, and monitoring of chest tube/pneumothorax. Coding Level of Care Code Critical Care >/= 30 minutes Diagnoses Spontaneous pneumothorax J93.83 Abdominal aortic aneurysm (AAA), 35-39 mm diameter I71.40 Adenocarcinoma of sigmoid colon C18.7 Peripheral neuropathy G62.9 Immunocompromised D84.9 Maintenance chemotherapy Z51.11 Tobacco abuse Z72.0 Shortness of breath R06.02 Dyspnea type: shortness of breath
--- NOTE | 2025-04-23 14:56 | PM.CONSULT ---
Providers/Reason For Consult Consulting Physician/Specialty*: Internal medicine/Roseline Josephine Reason for Consult*: Medical Management Attending Physician: Mary Whitlock MD Primary Care Provider: Jaswinder Rene MD History of Present Illness History of Present Illness Stefano Williamson is a 69 year old male With past medical history of BPH, anxiety, depression, COPD, history of sigmoid colon cancer, history of chemotherapy abdominal aortic aneurysm who presented to the hospital today after having trouble breathing after he woke up from his sleep. He states he was also having chest pain at the same time that woke him up from his sleep. Other than that he feels okay and has not had any issues. He states his next routine colonoscopy is after 5 years. In the ER chest x-ray revealed a left-sided pneumothorax for which a 20 Syrian left-sided chest tube was placed by ER physician. Postprocedure chest x-ray demonstrated complete resolution of pneumothorax This is patient's first occurrence of pneumonia. He has not had this in the past. He does smoke every day and has underlying COPD/emphysema. He denies nausea vomiting diarrhea hemoptysis chills fever or recent illness. At this time patient does state that he has pain every time he coughs. Medicine has been consulted to follow along for medical management. Medications/Allergies Home Medications ?Medication ?Instructions ?Recorded ?Confirmed ?Last Taken ?Type ascorbate calcium (vitamin C) 500 500 mg PO DAILY 12/11/22 04/23/25 04/22/25 History mg tablet magnesium citrate 100 mg tablet 100 mg PO DAILY 12/11/22 04/23/25 04/22/25 History multivitamin 1 tab PO DAILY 12/11/22 04/23/25 04/22/25 History aspirin 325 mg tablet 325 mg PO DAILY 05/24/23 04/23/25 04/22/25 History lorazepam 1 mg tablet 1 mg PO .Q6-8H PRN anxiety #30 tabs 06/12/23 04/23/25 04/22/25 Rx tamsulosin 0.4 mg capsule 0.4 mg PO DAILY #30 caps 07/08/24 04/23/25 04/22/25 Rx escitalopram oxalate 20 mg tablet 20 mg PO DAILY 04/23/25 04/23/25 04/22/25 History Allergies Allergy/AdvReac Type Severity Reaction Status Date / Time No Known Allergies Allergy Verified 01/09/25 09:02 PFSH Acute PFSH: Medical History (Updated 04/23/25 @ 14:49 by Mary Whitlock MD) Benign prostatic hyperplasia Anxiety and depression COPD (chronic obstructive pulmonary disease) Abdominal aortic aneurysm (AAA), 35-39 mm diameter Colon cancer Surgical History History of tonsillectomy History of colonoscopy (09/25/22) Status post partial resection of colon (11/01/22) Robotic assisted low anterior resection Social History Smoking and tobacco/nicotine status: current every day tobacco/nicotine user cigarettes Packs smoked per day: 1 Years cigarettes smoked: 45 Alcohol intake: current Alcohol intake frequency: holidays/special occasions only Substance/Drug Use: current Substance/Drug use frequency: few times a month Vitals/I&O/Wt Last Vital Signs Temp 98.1 F 04/23/25 05:50 Pulse 83 04/23/25 12:45 Resp 22 H 04/23/25 12:45 BP 150/88 04/23/25 12:45 Pulse Ox 94 04/23/25 12:45 O2 Del Method Room Air 04/23/25 05:50 Weight last 48 hrs Weight 106.141 kg Physical Exam Narrative: General: Alert oriented x3, patient seen laying in bed appearing comfortable. States he is slightly uncomfortable every time he coughs. Chest tube in place. HEENT: Normocephalic, atraumatic, EOMI, breathing on 2 L nasal cannula. Cardio: Regular rate rhythm, normal S1-S2, Respiratory: Clear to auscultation bilaterally, bilateral breath sounds appreciated. GI: Abdomen soft, nontender, bowel sounds + Extremities: Pulses 2+, no edema, no cyanosis Data 04/24/25 03:44 04/24/25 03:44 A&P Assessment and plan (1) Spontaneous pneumothorax: (2) Adenocarcinoma of sigmoid colon: (3) Immunocompromised: (4) COPD (chronic obstructive pulmonary disease): (5) Tobacco abuse: (6) Benign prostatic hyperplasia: (7) Abdominal aortic aneurysm (AAA), 35-39 mm diameter: Plan #Spontaneous pneumothorax status post chest tube placement with complete resolution #History of adenocarcinoma of sigmoid colon, history of chemotherapy/immunocompromise status #Chronic smoker #BPH #Pleuritic chest pain ? Patient states he takes lorazepam 1 mg once a day for anxiety however does not take it every 6-8 hours. ? Continue aspirin, Lexapro, multivitamin, tamsulosin, MiraLAX that he takes for constipation ? Provide nicotine patch 14 g daily. ? Chest tube management per general surgery ? DuoNeb every 6 hours as needed ? Continue incentive spirometer ? Continue supplemental nasal cannula ? Continue DVT prophylaxis with Lovenox 40 daily ? Hospitalist will continue to follow along. Full code DVT prophylaxis: Lovenox 40 daily PDMP PDMP Reviewed: Not Reviewed Consult Attestations Medical Necessity Statement: Defer to primary Diagnoses Spontaneous pneumothorax J93.83 Adenocarcinoma of sigmoid colon C18.7 Immunocompromised D84.9 COPD (chronic obstructive pulmonary disease) J44.9 Tobacco abuse Z72.0 Benign prostatic hyperplasia N40.0 Abdominal aortic aneurysm (AAA), 35-39 mm diameter I71.40
[2025-04-23] MEDS: enoxaparin 40 mg/0.4 mL Syringe SUBCUT (15:43)
--- OUTSIDE RECORDS SUMMARY | 2025-04-23 15:47 | XMS_ITS | Patient Health Record ---
Author Organization [facility] Address [address] [place] [address] Care Team Providers Care Router Tender Name Role Phone Fritz Rene Primary Care Provider Allergies No Known Allergies Results Component Value Reference Range Notes Colonoscopy, High Risk Scree patsy-[id number] Reviewed date:02/02/2025 04:19:50 PM Interpretation: Performing Lab: Notes/Report: Reason For Referral No Information Medications Medication SIG (Take, Route, Frequency, Duration) Notes Start Date End Date Status Varenicline Tartrate (Starter) 0.5 MG X 11 & 1 MG X 42 as directed Orally daily for 30 days Not-Taking metroNIDAZOLE 500 MG 1 tablet Orally Thr ee times a day Not-Taking LORazepam 1 MG 1 tablet at bedtime as needed Orally Once a day for 30 days 04/14/2025 Active Ondansetron 8 MG 1 tablet on the tong ue and allow to dissolve as needed Orally Once a day Not-Taking Pantoprazole Sodium 40 MG 1 tablet Orall y Once a day for 30 day(s) 03/06/2024 Active Escitalopram Oxalate 20 MG 1 tablet Oral ly Once a day for 90 days Active Aspirin 325 MG 1 tablet Orally Once a day Active Ibuprofen 800 MG 1 tablet with food o r milk as needed Orally every 8 hrs Active Magnesium 400 MG as directed Orally Active Ciprofloxacin HCl 500 MG 1 tablet Orally every 12 hrs Not-Taking Social History Tobacco Use: Social History Observation Description Date Details (start date - stop date) Current Smoker NA - NA Alcohol Screen (Audit-C) Question Answer Notes Did you have a drink containing alcohol in the p ast year? No Points 0 Interpretation Negative PHQ-9 Question Answer Notes Little interest or pleasure in doing things Not at all Feeling down, depressed, or hopeless Not at all Trouble falling or staying asleep, or sleeping t oo much Not at all Feeling tired or having little energy Not at all Poor appetite or overeating Not at all Feeling bad about yourself, or that you are a failure, or have let yourself or your family down Not at all Trouble concentrating on thi ngs, such as reading the newspaper or watching television Not at all Moving or speaking so slowly that other people could have noticed. Or the opposite ? being so fidgety or restless that you have been moving around a lot more than usual Not at all Thoughts that you would be b angella off , or of hurting yourself in some way Not at all Total Score 0 Tobacco Control (Standard) Question Answer Notes Tobacco use: Current smoker How often do you smoke cigarettes? Every day How many cigarettes a day do you smoke? 10-08 Section Notes: Dep/tob - 12/22/24 Problems Problem Type SNOMED Code ICD Code Onset Dates Problem Status W/U Status Risk Notes Problem 06025398 Fecal urgency (R15.2) Active confirmed Problem 506748986 Colon adenocarcinoma (C18.9) Active confirmed Problem 856639935 Tobacco abuse (Z72.0) Active confirmed Problem 478325534 History of recta l cancer (Z85.048) Active confirmed Problem Diverticular disease of colon (034088009) Colon, diverticulosis (K57.30) Active confirmed Problem 147793965 Neuropathy of hand, unspecified laterality (G56.90) Active confirmed Problem Acquired retinal aneurysm (H35.09) Active confirmed Problem 88566783 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) Active confirmed Vital Signs Heart Rate 88 /min 12/22/2024 Temperature 97.6 degrees Fahrenheit 12/22/2024 Height-cm 182.88 cm 12/22/2024 Oximetry 96 % 12/22/2024 Blood pressure diastolic 74 mm Hg 12/22/2024 Weight-kg 109.77 kg 12/22/2024 Height 72 in 12/22/2024 Blood pressure systolic 130 mm Hg 12/22/2024 Weight 242 lbs 12/22/2024 BMI 32.82 kg/m2 12/22/2024 Encounters Encounter Location Date Provider Diagnosis [facility] [address] [place] [id number] 05/08/2024 Fritz Rene [facility] [address] [phone] 11/17/2024 Fritz Rene [facility] [address] [phone] 04/14/2025 Fritz Rene [facility] [address] [address] 05/19/2024 Fritz Rene Colon adenocarcinoma C18.9 and Tobacco abuse Z72.0 [facility] [address] [address] 12/22/2024 Fritz Rene History of colon cancer Z85.038 ; Depression screen Z13.31 ; Colon adenocarcinoma C18.9 and Tobacco abuse Z72.0 [place] [place] [address] [place] [address] 01/28/2025 Fritz Rene History of rectal cancer Z85.048 ; Colon, diverticulosis K57.30 and 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 Assessments Encounter Date Diagnosis (ICD Code) Assessment Notes Treatment Notes Treatment Clinical Notes Section Notes 05/19/2024 Colon adenocarcinoma (ICD-10 - C18.9) 12/22/2024 History of colon cancer (ICD-10 - Z85.038) 12/22/2024 Depression screen (ICD-10 - Z13.31) 01/28/2025 History of rectal cancer (ICD-10 - Z85.048) 01/28/2025 Colon, diverticulosis (ICD-10 - K57.30) 01/28/2025 Colorectal anastomotic stricture (ICD-10 - K91.30) 05/19/2024 Tobacco abuse (ICD-10 - Z72.0) 12/22/2024 Colon adenocarcinoma (ICD-10 - C18.9) -x-- to be completed at [facility] ---to be completed at [facility] ---to be completed at [facility] ---to be completed at [facility] 12/22/2024 Tobacco abuse (ICD-10 - Z72.0) 01/28/2025 Other see scanned document from [facility] in patients documents. Plan Of Treatment No Information Insurance Providers Payer Name Payer Address Payer Phone Subscriber Number Group Number Insured Name Patient Relationship to Insured Coverage Start Date Coverage End Date [place] [address] [place] [phone] [id number] Stefano Williamson Self - patient is the insured [employer] [place] [address] [place] [address] [id number] Stefano Williamson Self - patient is the insured [employer] [place] Medicaid Replacement [address] [address] [place] [phone] [id number] Stefano Williamson Self - patient is the insured Medical (General) History Medical History History ICD Code Sepsis one week ago hx of colon cancer. abdominal aortic aneurysm Surgical History Surgery Date(Month/Year) Colon cancer removal 2021 Hospitalization History Reason Date(Month/Year) fever and sepsis 05/23/23
--- OUTSIDE RECORDS SUMMARY | 2025-04-23 15:47 | XMS_ITS | Clinical Summary ---
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
--- OUTSIDE RECORDS SUMMARY | 2025-04-23 15:47 | XMS_ITS | Clinical Summary ---
Author Organization [facility] Address [address] Attn: [place] [address] Care Team Providers Care Bolt Labeler Name Role Phone Unavailable Primary Care Provider Unavailabl e Allergies No known active allergies Medications No known medications Encounters Date Type Department Care Team Description 04/23/2025 Hospital Encounter [address] [facility] [address] [place] [phone] Oanh Nation MD from Last 3 Months Immunizations Immunization Administration Dates Next Due Hepatitis B Vaccine 06/14/1999,05/06/1999 Social History Tobacco Use Types Packs/Day Years Used Date Smoking Tobacco: Every Day Cigarettes Smokeless Tobacco: Never Alcohol Use Standard Drinks/Week Comments Not Currently 0 (1 standard drink = 0.6 oz pur e alcohol) Sex and Gender Information Value Date Recorded Sex Assigned at Not on file Legal Sex Male 12:36 PM [employer] Gender Identity Not on file Sexual Orientation Not on file Last Filed Vital Signs Vital Sign Reading Time Taken Comments Blood Pressure 114/73 06/23/2021 11:00 AM CDT Pulse - - Temperature 36.2 C (97.2 F) 06/23/2021 9:50 AM CDT Respiratory Rate 18 06/23/2021 11:15 AM CDT Oxygen Saturation 97% 06/23/2021 11:15 AM CDT Inhaled Oxygen Concentration - - Weight 102.1 kg (225 lb) 06/23/2021 9:50 AM CDT Height 182.9 cm (6') 06/23/2021 9:50 AM CDT Body Mass Index 30.52 06/23/2021 9:50 AM CDT Plan of Treatment Health Maintenance Due Date [...]
--- OUTSIDE RECORDS SUMMARY | 2025-04-23 15:47 | XMS_ITS | Encounter Summary ---
Author Organization [facility] Address [address] [place] [address] Care Team Providers Care Machine I Coremaker Name Role Phone Unavailable Primary Care Provider Unavailabl e Encounter Details Date Type Department Care Team (Late st Contact Info) Description 04/23/2025 Hospital Encounter [address] [facility] [address] [place] [address] Oanh Nation MD [address] [place] [address] Social History Tobacco Use Types Packs/Day Years Used Date Smoking Tobacco: Every Day Cigarettes Smokeless Tobacco: Never Alcohol Use Standard Drinks/Week Comments Not Currently 0 (1 standard drink = 0.6 oz pur e alcohol) Sex and Gender Information Value Date Recorded Sex Assigned at Not on file Legal 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
--- OUTSIDE RECORDS SUMMARY | 2025-04-23 15:48 | XMS_ITS | Encounter Summary ---
Author Organization [facility] Address [address] [place] [address] Care Team Providers Care Livestock Feeder Name Role Phone Unavailable Primary Care Provider Unavailabl e Encounter Details Date Type Department Care Team (Late st Contact Info) Description 12/20/2007 Outpatient Historical [facility] Medicine [place] [address] [address] [place] [id number] Jorge Vidal MD NO ADDRESS ON FILE Social History Tobacco Use Types Packs/Day Years Used Date Smoking Tobacco: Never Assessed Sex and Gender Information Value Date Recorded Sex Assigned at Not on file 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 SUBJECTIVE: The patient is a 52-year-old healthy male who is here today complaining of a three day history of itchy red eyes, which he describes at times as uncomfortable. He feels that there is sandgrit in his eyes. Denies significant drainage during the day, but will wake up in the morning with p urulent dry discharge present. The left eye is worse than the right. Describes some mild photophobia. Headache at times. No significant head congestion, rhinorrhea, or cough. No fever. No change in vision. 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 He is unaware of any sawdust flying into his eyes. He is unaware of any other foreign bodies into his eye. ALLERGIES: DENIES ANY DRUG ALLERGIES. CURRENT MEDICATIONS: CHANTIX to try to help him quit smoking. OBJECTIVE: VITAL SIGNS: Weight 245. Blood pressure 118/76. Pulse 76. GENERAL: No distress. HEENT: There is some very mild periorbital erythema without significant soft tissue swelling aroundhis left eye. Milder periorbital erythema around the right eye. There is mild scleral injection left greater than right. No evidence of episcleritis. Very mild conjunctival erythema. No discharge is noted. No foreign body is seen. Pupils were reactive to light. This did not reproduce pain. Extraocular movements were intact. ASSESSMENT: Probable allergic versus viral conjunctivitis. PLAN: 1. Eyes were flushed with saline today. 2. Trial of Naphcon eyedrops. 3. They have been using Polymyxin eyedrops from home. May continue using these. 4. Also encouraged use of saline eye washing. 5. Follow up if worsening symptoms should occur. Jorge Vidal M.D. [facility] [place] Electronically Signed by Jorge Vidal M.D. 12/23/2007 18:03 , A, 500 Document #: [id number] cc: ING SUPERVISOR documented in this encounter Plan of Treatment Not on file documented as of this encounter Visit Diagnoses Not on filedocumented in this encounter
--- OUTSIDE RECORDS SUMMARY | 2025-04-23 15:48 | XMS_ITS | Encounter Summary ---
Author Organization [facility] Address [address] [place] [address] Care Team Providers Care Social Media Manager Name Role Phone Unavailable Primary Care Provider Unavailabl e Encounter Details Date Type Department Care Team (Latest Contact Info) Description 08/05/2002 Outpatient Historical [facility] Medicine [place] [address] [facility] [address] [place] [phone] Bob Dumas DO NO ADDRESS ON FILE ACUTE BRONCHITIS (Primary Dx); DIARRHEA NOS Social History Tobacco Use Types Packs/Day Years Used Date Smoking Tobacco: Never Assessed Sex and Gender Information Value Date Recorded Sex Assigned at Not on file 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
--- OUTSIDE RECORDS SUMMARY | 2025-04-23 15:48 | XMS_ITS | Encounter Summary ---
Author Organization [facility] Address [address] [place] [address] Care Team Providers Care Abstracter Name Role Phone Unavailable Primary Care Provider Unavailabl e Encounter Details Date Type Department Care Team (Latest Contact Info) Description 04/07/2005 Outpatient Historical [facility] Medicine [place] [address] [place] [phone] Avtar Olson MD [address] [address] ANXIETY STATE NOS (Primary Dx); DEPRESSIVE DISORDER NEC Social History Tobacco Use Types Packs/Day Years Used Date Smoking Tobacco: Never Assessed Sex and Gender Information Value Date Recorded Sex Assigned at Not on file 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
[2025-04-23] MEDS: nicotine 14 mg Patch 1 PATCH TRANSDERMA (16:41)
[2025-04-23] MEDS: HYDROcodone-acetaminophen 5-325 mg Tablet 1 TAB PO ×2 (16:59→21:40)
[2025-04-23] MEDS: LORazepam 1 mg Tablet PO (17:02)
[2025-04-23] MEDS: docusate sodium 100 mg Capsule PO (17:43)
[2025-04-24] VITALS (24 sets, daily range): BP systolic 107–169; BP diastolic 64–93; PULSE 62–98; RESP 12–24; TEMP 36.3–36.7; O2SAT 92–98
[2025-04-24] MEDS: HYDROcodone-acetaminophen 5-325 mg Tablet 1 TAB PO ×3 (02:31→21:14)
[2025-04-24 04:10] LABS: Basophils % 0.3 %; Eosinophils # 0.1 10^3/uL (0.0-0.8); Eosinophils % 1.4 %; Hematocrit 44.3 % (37-53); Lymphocytes % 20.4 %; Mean Corpuscular HGB Conc 33.9 g/dL (30-55); Mean Corpuscular Hemoglobin 29.5 pg (27-33); Mean Corpuscular Volume 87.2 fl (82-101); Mean Platelet Volume 10.1 fL (7.4-10.4); Monocytes # 0.9 10^3/uL (0.2-0.9); Monocytes % 8.9 %; Neutrophils # 6.54 10^3/uL (1.8-7.7); Neutrophils % 68.6 %; Nucleated Red Blood Cells % 0 %; Platelet Count 201 10^3/cmm (157-399); Red Blood Count 5.08 10^6/uL (3.85-5.65); Red Cell Distribution Width 13.6 % (12.1-15.1); White Blood Count 9.54 10^3/uL (3.29-11.43)
[2025-04-24 04:29] LABS: Anion Gap 15.1 (5-19); Blood Urea Nitrogen 14 mg/dL (8-23); Calcium 8.5 mg/dL (8.5-10.5); Carbon Dioxide 23 mmol/L (22-29); Chloride 104 mmol/L (98-107); Creatinine Clr Calc Pharmacy 114.2653; Glomerular Filtration Rate 112.5 mL/min (90-130); Glucose 96 mg/dL (65-115); Osmolality Calculated 286 mOsm/kg (285-295); Potassium 4.1 mmol/L (3.5-5.1); Sodium 138 mmol/L (136-145)
--- NOTE | 2025-04-24 06:13 | P.PN_ITS ---
Subjective 2 Subjective: Seen this morning. Continue 2 L nasal cannula. Vitals/I&O/Wt Last Vital Signs Temp 98.2 F 04/23/25 23:00 Pulse 63 04/24/25 06:00 Resp 18 04/24/25 06:00 BP 120/66 04/24/25 06:00 Pulse Ox 97 04/24/25 06:00 O2 Del Method Nasal Cannula 04/24/25 06:00 O2 Flow Rate 2 04/24/25 06:00 04/23/25 04/23/25 04/24/25 14:59 22:59 06:59 Intake Total 900 / 900 100 / 1000 Output Total 750 / 750 Balance 900 / 900 -650 / 250 Weight last 48 hrs Weight 109 kg Weight 107.5 kg Weight 106.141 kg Physical Exam 2 Narrative: General: Alert oriented x3, sitting up at edge of bed eating breakfast. Appears comfortable. HEENT: Normocephalic, atraumatic, EOMI, breathing on 2 L nasal cannula. Cardio: Regular rate rhythm, normal S1-S2, Respiratory: Clear to auscultation bilaterally, bilateral breath sounds appreciated. GI: Abdomen soft, nontender, bowel sounds + Extremities: Pulses 2+, no edema, no cyanosis Data 04/24/25 03:44 04/24/25 03:44 A&P Assessment and plan (1) Spontaneous pneumothorax: (2) Adenocarcinoma of sigmoid colon: (3) Immunocompromised: (4) COPD (chronic obstructive pulmonary disease): (5) Tobacco abuse: (6) Benign prostatic hyperplasia: (7) Abdominal aortic aneurysm (AAA), 35-39 mm diameter: Plan #Spontaneous pneumothorax status post chest tube placement with complete resolution #History of adenocarcinoma of sigmoid colon, history of chemotherapy/immunocompromise status #Chronic smoker #BPH #Pleuritic chest pain ? Patient states he takes lorazepam 1 mg once a day for anxiety however does not take it every 6-8 hours. ? Continue aspirin, Lexapro, multivitamin, tamsulosin, MiraLAX that he takes for constipation ? Provide nicotine patch 14 g daily. ? Chest tube management per general surgery ? DuoNeb every 6 hours as needed ? Continue incentive spirometer ? Continue supplemental nasal cannula ? Continue DVT prophylaxis with Lovenox 40 daily ? Hospitalist will continue to follow along. Full code DVT prophylaxis: Lovenox 40 daily 04/24/2025 Repeat chest x-ray ordered for this morning to reevaluate pneumothorax ? Continue medications as listed above Chest tube management per general surgery Medicine will continue to follow. Vital stable PDMP PDMP Reviewed: Not Reviewed Attestations 2 Medical Necessity Statement*: Defer to primary Diagnoses Spontaneous pneumothorax J93.83 Adenocarcinoma of sigmoid colon C18.7 Immunocompromised D84.9 COPD (chronic obstructive pulmonary disease) J44.9 Tobacco abuse Z72.0 Benign prostatic hyperplasia N40.0 Abdominal aortic aneurysm (AAA), 35-39 mm diameter I71.40
[2025-04-24] MEDS: LORazepam 1 mg Tablet PO (07:57)
[2025-04-24] MEDS: multivitamin therapeutic Tablet 1 TAB PO (07:58)
[2025-04-24] MEDS: tamsulosin 0.4 mg Capsule PO (07:58)
[2025-04-24] MEDS: escitalopram 10 mg Tablet 20 MG PO (07:59)
[2025-04-24] MEDS: docusate sodium 100 mg Capsule PO ×2 (07:59→18:03)
[2025-04-24] MEDS: nicotine 14 mg Patch 1 PATCH TRANSDERMA (07:59)
[2025-04-24] MEDS: aspirin 325 mg Tablet PO (07:59)
--- NOTE | 2025-04-24 08:13 | XR_ITS ---
WS: [id number] XR chest 1V portable [id number] REASON FOR EXAM: pneumothorax s/p chest tube FINDINGS: Chest is unchanged compared to the previous day. Left chest tube remains in position with complete resolution of previous left pneumothorax. No new findings. XR/XR chest 1V portable [id number] IMPRESSION: Stable chest with left chest tube as above.
[2025-04-24] MEDS: morphine 4 mg/mL SDV 1 mL IVP (10:10)
--- NOTE | 2025-04-24 10:27 | XR_ITS ---
WS: [id number] XR chest 1V portable [id number] REASON FOR EXAM: chest tube placement FINDINGS: The chest tube has been retracted. The sidehole of the chest tube may not be within the pleural space. There is subcutaneous emphysema in the left chest wall but unchanged compared to 04/23/2025. The left lung remains fully inflated. XR/XR chest 1V portable [id number] IMPRESSION: Left chest tube retraction as above.
--- NOTE | 2025-04-24 11:42 | PM.PN ---
Subjective Subjective: The patient was seen and evaluated at bedside this morning. He stated that his pain associated with the chest tube has significantly improved. He denied shortness of breath or pain with deep inspiration. He has been doing very well with his incentive spirometry. He has been ambulating in his room. Respiratory therapy notes document incentive spirometry volume amount to be 2750 mL. Distantly, he has a strong cough. He denied fevers, chills, nausea, vomiting, or abdominal pain. Vitals/I&O/Wt Last Vital Signs Temp 97.6 F 04/24/25 08:00 Pulse 66 04/24/25 11:35 Resp 18 04/24/25 11:35 BP 129/81 04/24/25 11:00 Pulse Ox 96 04/24/25 11:35 O2 Del Method Nasal Cannula 04/24/25 11:35 O2 Flow Rate 2 04/24/25 11:35 04/23/25 04/24/25 04/24/25 22:59 06:59 14:59 Intake Total 900 / 900 100 / 1000 300 / 300 Output Total 750 / 750 750 / 750 Balance 900 / 900 -650 / 250 -450 / -450 Weight last 48 hrs Weight 240 lb 4.862 oz Weight 236 lb 15.951 oz Weight 234 lb Physical Exam Const: COMMON NORMALS: no acute distress and patient oriented x3 OTHER: Obese body habitus. HENMT: COMMON NORMALS: normocephalic and atraumatic HEAD & SCALP: normocephalic and atraumatic Chest: OTHER: Dressings in place, clean and dry. Chest tube to wall suction. No airleak. Tidaling well. Resp: COMMON NORMALS: normal respiratory effort and No use of accessory muscles Neuro: COMMON NORMALS: patient oriented x3 Data 04/24/25 03:44 04/24/25 03:44 A&P Assessment and plan (1) Spontaneous pneumothorax: -- Large spontaneous left-sided pneumothorax status post tube placement of 20 Bulgarian thoracostomy tube by ER physician, with history of possible COPD/emphysema/current everyday smoker - extent of underlying pulmonary disease unknown -- This patient is at risk for failure of conservative/medical management, if he fails conservative/medical management and the pneumothorax fails to remain resolved or he develops loculations/empyema he will need a possible VATS procedure, possible decortication requiring a thoracic surgeon and/or possible pulmonology consultation -- I discussed this in detail with the patient, and he is open to transfer to a higher level of care if indicated -- Upon review of the chest x-ray the tip of the chest tube appeared to be too far medial, adjacent to the mediastinum: At bedside this morning, under sterile conditions, and after the consent process, I pulled the chest tube back 2 cm, secured it with 2 sutures, and replaced the occlusive/sterile dressing. Post repositioning of chest tube chest x-ray: FINDINGS: The chest tube has been retracted. The sidehole of the chest tube may not be within the pleural space. There is subcutaneous emphysema in the left chest wall but unchanged compared to 04/23/2025. The left lung remains fully inflated. IMPRESSION: Left chest tube retraction as above. I reviewed the chest x-ray myself and it is difficult to visualize the sentinel hole, however the sentinel hole was not visualized when I repositioned/the chest tube 2 cm out and the left lung remains fully inflated. Monitor chest tube closely for now. Repeat chest x-ray tomorrow morning, unless there is an acute change, at that time we would order a [id number] portable chest x-ray. -- Transition chest tube to waterseal -- Monitor chest tube for air leaks -- Continuous supplemental oxygen via nasal cannula at 2 L for at the next 24 hours -- No indication for prophylactic antibiotics -- Continuous cardiac monitoring for at least the next 24 hours -- Incentive spirometry/pulmonary toilet - respiratory therapy consulted -- a.m. CMP, CBC, and CRP -- Physical therapy evaluation and treat -- Ambulate 3 times daily -- [place] 5?3 25 as needed moderate to severe pain -- IV morphine for breakthrough pain -- Stool softener ordered -- No need for muscle relaxant at this time, as the patient is tolerating the chest tube well -- SCDs and chemical DVT prophylaxis ordered -- Consult hospitalist for medical management (2) Abdominal aortic aneurysm (AAA), 35-39 mm diameter: (3) Adenocarcinoma of sigmoid colon: (4) Peripheral neuropathy: (5) Immunocompromised: (6) Maintenance chemotherapy: (7) Tobacco abuse: (8) Dyspnea: PDMP PDMP Reviewed: Not Reviewed Attestations Medical Necessity Statement*: Continuous monitoring of vital signs, continuous pulse oximetry, and monitoring of chest tube/pneumothorax. Coding Level of Care Code Acute Code for Chg Fwd Diagnoses Spontaneous pneumothorax J93.83 Abdominal aortic aneurysm (AAA), 35-39 mm diameter I71.40 Adenocarcinoma of sigmoid colon C18.7 Peripheral neuropathy G62.9 Immunocompromised D84.9 Maintenance chemotherapy Z51.11 Tobacco abuse Z72.0 Shortness of breath R06.02 Dyspnea type: shortness of breath
--- NOTE | 2025-04-24 12:04 | PC.NURSE ---
Dr. Whitlock to bedside, discussed with patient and patients plan of care. Educated patient that chest tube position was a little too far and in and would need to pull it back at bedside. Consent obtained from patient. Suture removed, chest tube slid back 2cm using sterile technique. Sutured in place, Vaseline gauze placed over insertion site, covered with gauze and tape. Morphine given IVP prior to procedure as ordered per Dr. Whitlock. Tolerated well. Chest x-ray obtained. Chest tube to water seal as ordered with no air leak noted.
--- NOTE | 2025-04-24 13:56 | PC.SOCIAL ---
IMM Updated Updated pt on IMM. No questions voiced. Provided pt a copy. Initialed, dated, & timed a copy & placed in chart.
[2025-04-24] MEDS: enoxaparin 40 mg/0.4 mL Syringe SUBCUT (15:42)
--- NOTE | 2025-04-24 16:00 | XRR_ITS ---
PROCEDURE INFORMATION: Exam: XR Chest Exam date and time: 04/24/2025 3:53 PM Age: 69 years old Clinical indication: Condition or disease; Re-evaluate left pneumothorax; Additional info: Re-evaluate L pneumothorax; 1600 TECHNIQUE: Imaging protocol: Radiologic exam of the chest. Views: 1 view. COMPARISON: CR XR chest 1V portable [id number] 04/24/2025 11:11 AM FINDINGS: Tubes, catheters and devices: A left-sided chest tube is seen. Lungs: No pulmonary consolidation. Pleural spaces: No pleural effusion. No pneumothorax. Heart/Mediastinum: The cardiac silhouette is unchanged. No gross evidence of pneumomediastinum. Bones/joints: No gross fracture. Soft tissues: Soft tissue gas in the left chest wall. XR/XR chest 1V portable [id number] IMPRESSION: Left-sided chest tube. No significant residual pneumothorax is identified.
[2025-04-25] VITALS (22 sets, daily range): BP systolic 91–148; BP diastolic 52–92; PULSE 62–90; RESP 16–29; TEMP 36.6–37.4; O2SAT 92–100
[2025-04-25 04:16] LABS: Basophils % 0.4 %; Eosinophils # 0.2 10^3/uL (0.0-0.8); Hematocrit 45.5 % (37-53); Lymphocytes # 2.2 10^3/uL (0.8-4.8); Lymphocytes % 24.8 %; Mean Corpuscular HGB Conc 34.5 g/dL (30-55); Mean Corpuscular Hemoglobin 29.8 pg (27-33); Mean Corpuscular Volume 86.5 fl (82-101); Monocytes # 0.8 10^3/uL (0.2-0.9); Monocytes % 9.3 %; Neutrophils # 5.62 10^3/uL (1.8-7.7); Neutrophils % 63.2 %; Nucleated Red Blood Cells % 0 %; Platelet Count 194 10^3/cmm (157-399); Red Blood Count 5.26 10^6/uL (3.85-5.65); Red Cell Distribution Width 13.6 % (12.1-15.1); White Blood Count 8.91 10^3/uL (3.29-11.43)
[2025-04-25 04:31] LABS: Alanine Aminotransferase 11 U/L (0-41); Albumin Level 3.6 g/dL (3.5-5.2); Alkaline Phosphatase 68 U/L (40-130); Anion Gap 12.4 (5-19); Aspartate Amino Transferase 13 U/L (0-40); Blood Urea Nitrogen 11 mg/dL (8-23); Calcium 8.9 mg/dL (8.5-10.5); Carbon Dioxide 25 mmol/L (22-29); Chloride 103 mmol/L (98-107); Creatinine Clr Calc Pharmacy 114.2653; Globulin 3.3 g/dL (1.3-4.6); Glomerular Filtration Rate 134.4 mL/min (90-130); Glucose 94 mg/dL (65-115); Osmolality Calculated 281 mOsm/kg (285-295); Potassium 4.4 mmol/L (3.5-5.1); Sodium 136 mmol/L (136-145); Total Bilirubin 0.5 mg/dL (0.15-1.2); Total Protein 6.9 g/dL (6.6-8.7)
[2025-04-25 04:33] LABS: C Reactive Protein 41.5 mg/L (0.0-4.9)
--- NOTE | 2025-04-25 05:59 | XRR_ITS ---
PROCEDURE INFORMATION: Exam: XR Chest Exam date and time: 04/25/2025 6:04 AM Age: 69 years old Clinical indication: Other: F/u pneumothorax; F/u left pneumothorax. Chest tube in place. ; Additional info: Spontaneous pneumothorax/in situ thoracostomy tube TECHNIQUE: Imaging protocol: Radiologic exam of the chest. Views: 1 view. COMPARISON: CR XR chest 1V portable [id number] 04/24/2025 3:53 PM FINDINGS: Tubes, catheters and devices: Left chest tube unchanged. Lungs: Unremarkable. No consolidation. Pleural spaces: No pneumothorax. Heart/Mediastinum: Unremarkable. No cardiomegaly. Bones/joints: Unremarkable. XR/XR chest 1V portable [id number] IMPRESSION: No pneumothorax.
[2025-04-25] MEDS: LORazepam 1 mg Tablet PO (06:22)
[2025-04-25] MEDS: HYDROcodone-acetaminophen 5-325 mg Tablet 1 TAB PO (06:22)
[2025-04-25] MEDS: tamsulosin 0.4 mg Capsule PO (08:32)
[2025-04-25] MEDS: multivitamin therapeutic Tablet 1 TAB PO (08:33)
[2025-04-25] MEDS: docusate sodium 100 mg Capsule PO ×2 (08:33→17:46)
[2025-04-25] MEDS: aspirin 325 mg Tablet PO (08:33)
[2025-04-25] MEDS: escitalopram 10 mg Tablet 20 MG PO (08:33)
[2025-04-25] MEDS: nicotine 14 mg Patch 1 PATCH TRANSDERMA (08:33)
--- NOTE | 2025-04-25 08:53 | P.PN_ITS ---
Subjective 2 Subjective: The patient was seen and evaluated at bedside this morning. Serial chest x-rays demonstrate that the left lung remains inflated/no pneumothorax. The patient denies chest pain or shortness of breath. He does have pain associated with the chest tube itself. He continues to do well with incentive spirometry. Incentive spirometry volume is 2750 mL. He has a strong cough. He has not had any supplemental oxygen requirements. He denied fevers, chills, nausea, vomiting, or abdominal pain. Vitals/I&O/Wt Last Vital Signs Temp 97.8 F 04/25/25 04:00 Pulse 68 04/25/25 06:00 Resp 19 H 04/25/25 06:00 BP 132/79 04/25/25 06:00 Pulse Ox 98 04/25/25 06:00 O2 Del Method Nasal Cannula 04/25/25 06:00 O2 Flow Rate 2 04/25/25 06:00 04/24/25 04/25/25 04/25/25 22:59 06:59 14:59 Intake Total 0 / 900 Output Total 2024 Balance -300 / -1125 0 / -1125 Weight last 48 hrs Weight 239 lb Weight 240 lb 4.862 oz Weight 236 lb 15.951 oz Physical Exam 2 Const: COMMON NORMALS: no acute distress and patient oriented x3 HENMT: COMMON NORMALS: normocephalic and atraumatic HEAD & SCALP: n ormocephalic and atraumatic Chest: COMMONS NORMALS: normal inspection of the chest and normal palpation of entire chest wall OTHER: Chest tube in place, currently to waterseal. Dressings in place, clean and dry. Tidaling well. No airleak. Resp: COMMON NORMALS: normal respiratory effort and No use of accessory muscles Neuro: COMMON NORMALS: patient oriented x3 Psych: COMMON NORMALS: normal affect and speech normal SPEECH: Yes normal speech Data 04/25/25 03:46 04/25/25 03:46 A&P Assessment and plan (1) Spontaneous pneumothorax: -- Large spontaneous left-sided pneumothorax status post tube placement of 20 Japanese thoracostomy tube by ER physician on 04/23/2025, with history of COPD/emphysema/current everyday smoker - extent of underlying pulmonary disease unknown -- This patient is at risk for failure of conservative/medical management, if he fails conservative/medical management and the pneumothorax fails to remain resolved or he develops loculations/empyema he will need a possible VATS procedure, possible decortication requiring a thoracic surgeon and/or possible pulmonology consultation -- I discussed this in detail with the patient, and he is open to transfer to a higher level of care if indicated -- Chest tube had been on wall suction since approx 8:30 AM on April 23, 2025 to approx. 9:30 AM on April 24, 2025. Greater than 24 hours. -- Chest tube has been on waterseal since 9:30 AM on April 24, 2025 till approx. 11 AM this morning when I removed the chest tube. Discussed signs/symptoms that may indicate pneumothorax recurrence. -- Serial chest x-rays after placement to waterseal demonstrate left chest tube in place and no pneumothorax 6:04 AM this morning, 11:11 AM yesterday, and 3:53 PM yesterday -- Chest tube has been titling well and there has been no airleak --I removed the chest tube and placed a sterile dressing at bedside approx. 11 AM this morning - I discussed with the patient that if his pneumothorax recurs, he will likely need repeat chest tube placement -- Repeat chest x-ray 4 PM this afternoon -- Discontinue continuous 2L supplemental oxygen -- No indication for prophylactic antibiotics -- Incentive spirometry/pulmonary toilet - respiratory therapy consulted -- a.m. CMP, CBC, and CRP -- Physical therapy evaluation and treat -- Ambulate 3 times daily -- [place] 5?3 25 as needed moderate to severe pain -- IV morphine for breakthrough pain -- Stool softener ordered -- SCDs and chemical DVT prophylaxis ordered -- Consult hospitalist for medical management (2) Abdominal aortic aneurysm (AAA), 35-39 mm diameter: (3) Adenocarcinoma of sigmoid colon: (4) Peripheral neuropathy: (5) Immunocompromised: (6) Maintenance chemotherapy: (7) Tobacco abuse: (8) Dyspnea: PDMP PDMP Reviewed: Not Reviewed Attestations 2 Medical Necessity Statement*: Continuous monitoring of vital signs, continuous pulse oximetry, telemetry, and serial chest x-rays. Coding Level of Care Code Acute Code for Chg Fwd Diagnoses Spontaneous pneumothorax J93.83 Abdominal aortic aneurysm (AAA), 35-39 mm diameter I71.40 Adenocarcinoma of sigmoid colon C18.7 Peripheral neuropathy G62.9 Immunocompromised D84.9 Maintenance chemotherapy Z51.11 Tobacco abuse Z72.0 Shortness of breath R06.02 Dyspnea type: shortness of breath
--- NOTE | 2025-04-25 11:30 | PC.NURSE ---
Dr. Whitlock to bedside, left pleural chest tube discontinued w/o difficulty. Vasoline gauze, 4x4, and foam tape dressing placed over puncture. Tolerated well.
[2025-04-25] MEDS: polyethylene glycol 3350 Pkt 17 gm PO (14:32)
[2025-04-25] MEDS: enoxaparin 40 mg/0.4 mL Syringe SUBCUT (15:22)
--- NOTE | 2025-04-25 16:00 | XRR_ITS ---
PROCEDURE INFORMATION: Exam: XR Chest Exam date and time: 04/25/2025 4:02 PM Age: 69 years old Clinical indication: Other: F/u pneumo; Follow up pneumothorax after lt chest tube removal; Additional info: Evaluate pneumothorax post chest tube removal TECHNIQUE: Imaging protocol: Radiologic exam of the chest. Views: 1 view. COMPARISON: CR (CHEST, ) 04/25/2025 6:04 AM FINDINGS: Lungs: Mild left basilar atelectasis near site of prior chest tube. No consolidation. Pleural spaces: No pleural effusion. No evident residual pneumothorax. Heart/Mediastinum: Unremarkable. No cardiomegaly. Bones/joints: Unremarkable. XR/XR chest 1V portable [id number] IMPRESSION: No evident residual left pneumothorax.
--- NOTE | 2025-04-25 16:35 | P.PN_ITS ---
Subjective 2 Subjective: Chest tube removed this morning. Patient feeling okay at this time. Vitals/I&O/Wt Last Vital Signs Temp 98.2 F 04/25/25 16:00 Pulse 62 04/25/25 16:00 Resp 21 H 04/25/25 16:00 BP 96/52 04/25/25 16:00 Pulse Ox 93 04/25/25 16:00 O2 Del Method Room Air 04/25/25 16:00 O2 Flow Rate 2 04/25/25 10:00 04/25/25 04/25/25 04/25/25 06:59 14:59 22:59 Intake Total 0 / 900 725 / 725 Output Total 1300 / 1300 Balance 0 / -1125 -575 / -575 Weight last 48 hrs Weight 108.409 kg Weight 109 kg Physical Exam 2 Narrative: General: Alert oriented x3, patient is sleeping. HEENT: Normocephalic, atraumatic, EOMI, on room air. Cardio: Regular rate rhythm, normal S1-S2, Respiratory: Clear to auscultation bilaterally, bilateral breath sounds appreciated. Data 04/25/25 03:46 04/25/25 03:46 A&P Assessment and plan (1) Spontaneous pneumothorax: (2) Adenocarcinoma of sigmoid colon: (3) Immunocompromised: (4) COPD (chronic obstructive pulmonary disease): (5) Tobacco abuse: (6) Benign prostatic hyperplasia: (7) Abdominal aortic aneurysm (AAA), 35-39 mm diameter: Plan #Spontaneous pneumothorax status post chest tube placement with complete resolution #History of adenocarcinoma of sigmoid colon, history of chemotherapy/immunocompromise status #Chronic smoker #BPH #Pleuritic chest pain ? Patient states he takes lorazepam 1 mg once a day for anxiety however does not take it every 6-8 hours. ? Continue aspirin, Lexapro, multivitamin, tamsulosin, MiraLAX that he takes for constipation ? Provide nicotine patch 14 g daily. ? Chest tube management per general surgery ? DuoNeb every 6 hours as needed ? Continue incentive spirometer ? Continue supplemental nasal cannula ? Continue DVT prophylaxis with Lovenox 40 daily ? Hospitalist will continue to follow along. Full code DVT prophylaxis: Lovenox 40 daily 04/24/2025 Repeat chest x-ray ordered for this morning to reevaluate pneumothorax ? Continue medications as listed above Chest tube management per general surgery Medicine will continue to follow. Vital stable 04/25/2025 Chest tube was removed this morning Patient on room air. Pneumothorax and chest tube management per general surgery Continue medications as listed in current orders Medicine will continue to follow PDMP PDMP Reviewed: Not Reviewed Attestations 2 Medical Necessity Statement*: Defer to primary Diagnoses Spontaneous pneumothorax J93.83 Adenocarcinoma of sigmoid colon C18.7 Immunocompromised D84.9 COPD (chronic obstructive pulmonary disease) J44.9 Tobacco abuse Z72.0 Benign prostatic hyperplasia N40.0 Abdominal aortic aneurysm (AAA), 35-39 mm diameter I71.40
[2025-04-26] VITALS (13 sets, daily range): BP systolic 88–135; BP diastolic 58–79; PULSE 64–80; RESP 18–23; TEMP 36.9; O2SAT 93–99
--- NOTE | 2025-04-26 06:23 | XRR_ITS ---
PROCEDURE INFORMATION: Exam: XR Chest Exam date and time: 04/26/2025 7:42 AM Age: 69 years old Clinical indication: Other: Pnx - chest tube removed 04/25/2025 TECHNIQUE: Imaging protocol: Radiologic exam of the chest. Views: 1 view. COMPARISON: CR (CHEST, ) 04/25/2025 4:02 PM FINDINGS: Lungs: Unremarkable. No consolidation. Pleural spaces: Unremarkable. No pleural effusion. No pneumothorax. Heart/Mediastinum: Unremarkable. No cardiomegaly. Bones/joints: Unremarkable. Soft tissues: There is minimal subcutaneous emphysema on the left. XR/XR chest 1V portable [id number] IMPRESSION: 1. No acute findings.
[2025-04-26 06:30] LABS: Anion Gap 15.4 (5-19); Blood Urea Nitrogen 13 mg/dL (8-23); Calcium 8.7 mg/dL (8.5-10.5); Carbon Dioxide 21 mmol/L (22-29); Chloride 104 mmol/L (98-107); Creatinine Clr Calc Pharmacy 113.9657; Glomerular Filtration Rate 134.4 mL/min (90-130); Glucose 77 mg/dL (65-115); Magnesium 2.2 mg/dL (1.7-2.3); Osmolality Calculated 281 mOsm/kg (285-295); Potassium 4.4 mmol/L (3.5-5.1); Sodium 136 mmol/L (136-145)
--- NOTE | 2025-04-26 07:37 | P.PN_ITS ---
Subjective 2 Subjective: The patient feels well today. He is not feeling short of breath. He denies any chest pains. He is not having any pain from the location of the chest tube. He had the chest tube removed yesterday. Vitals/I&O/Wt Last Vital Signs Temp 98.4 F 04/26/25 02:00 Pulse 67 04/26/25 07:00 Resp 18 04/26/25 07:00 BP 124/78 04/26/25 07:00 Pulse Ox 97 04/26/25 07:00 O2 Del Method Room Air 04/26/25 07:00 O2 Flow Rate 2 04/25/25 10:00 04/25/25 04/26/25 04/26/25 22:59 06:59 14:59 Intake Total 450 / 1175 0 / 1175 100 / 100 Output Total 600 / 600 Balance 450 / -125 0 / -125 -500 / -500 Weight last 48 hrs Weight 239 lb Physical Exam 2 Narrative: General: Alert and oriented x 3. In no acute distress. Mouth: No erythema or tonsilar enlargement. No masses noted. Neck: No thyromegaly. No lymphadenopathy. Heart: Regular rate and rhythm. No murmurs. Lungs: Decreased air entry bilaterally. No significant wheezes, crackles or rhonchi. Breath sounds present bilaterally. Abdomen: Soft, non-tender. No hepatosplenomegaly. Extremities: Trace pitting edema. Data 04/25/25 03:46 04/26/25 04:58 A&P Assessment and plan (1) Spontaneous pneumothorax: The patient had a spontaneous pneumothorax and a chest tube was placed and this has shown signs of clearance since the chest tube was removed. We will get follow-up chest x-ray today and if it continues to be clear, from a medical standpoint the patient can be discharged. (2) COPD (chronic obstructive pulmonary disease): The patient's COPD seems to be stable at this time. Currently he is not needing any inhalers for treatment. (3) Tobacco abuse: The patient was urged to quit smoking. He has been using a nicotine patch since being in the hospital and this has worked well for him. The patient states that he has tried everything in terms of quitting smoking in the past and is not interested in Chantix or Wellbutrin at this time. He feels like it is a mental thing for him. He wants to quit smoking and believes that he will do at this time. The patient sees Dr. Rene and I encouraged him to bring this up with him as well. The patient's son and also smoke. They have been wanting to quit as well. I encouraged him to make this a priority to decrease risk for future complications. Plan The patient is stable otherwise and can continue with his home medications upon discharge as well as a nicotine patch of 14 mg daily. PDMP PDMP Reviewed: Not Reviewed Attestations 2 Medical Necessity Statement*: Per surgery Coding Level of Care Code Acute Code for Chg Fwd Diagnoses Spontaneous pneumothorax J93.83 COPD (chronic obstructive pulmonary disease) J44.9 Tobacco abuse Z72.0
[2025-04-26] MEDS: nicotine 14 mg Patch 1 PATCH TRANSDERMA (07:47)
[2025-04-26] MEDS: escitalopram 10 mg Tablet 20 MG PO (07:49)
[2025-04-26] MEDS: tamsulosin 0.4 mg Capsule PO (07:49)
[2025-04-26] MEDS: aspirin 325 mg Tablet PO (07:49)
[2025-04-26] MEDS: multivitamin therapeutic Tablet 1 TAB PO (07:49)
[2025-04-26] MEDS: docusate sodium 100 mg Capsule PO (07:49)
--- NOTE | 2025-04-26 09:29 | P.DS_ITS ---
Discharge Providers Date of Admission: 04/23/25 13:36 Date of Discharge: April 26, 2025 Attending Provider at Admission: Mary Whitlock MD Attending Provider at Discharge: Mary Whitlock MD Consults: Hospitalist Primary Care Provider: Jaswinder Rene MD Diagnoses at Discharge Discharge Diagnosis (1) Spontaneous pneumothorax: Details from hospital stay: The patient did well while in hospital. ER physician placed a left-sided chest tube for large left-sided pneumothorax on presentation on presentation. The patient's chest tube was placed to wall suction for greater than 24 hours. On hospital day #2, the chest tube was repositioned/retracted slightly (due to medial palcement of chest tube tip) and the chest tube was placed to waterseal for greater than 48 hours. Serial chest x-rays demonstrated that the left lung remained inflated and no recurrence of pneumothorax. The patient's chest tube n ever had an air leak. On the day prior to discharge, the chest tube was removed. Subsequent chest x-rays demonstrated that the left lung remained inflated and no recurrence of pneumothorax. The patient's vital signs, hemodynamics, and oxygen saturations were monitored continuously. Status: Resolved (2) COPD (chronic obstructive pulmonary disease): Status: Acute (3) Tobacco abuse: Status: Acute Reason for Visit Reason for Visit: cp arm pain sob Physical Exam Const: COMMON NORMALS: no acute distress, average body habitus and patient oriented x3 Chest: COMMONS NORMALS: normal inspection of the chest OTHER: Left chest tube removal site - Dressings changed at bedside. [address] Skin edges well-approximated. No erythema or exudates. Resp: COMMON NORMALS: normal respiratory effort and No use of accessory muscles Neuro: COMMON NORMALS: patient oriented x3 and moves all extremities Psych: COMMON NORMALS: Normal thought process present, cooperative and normal affect THOUGHT PROCESS: Normal thought process present Discharge Data Studies Completed and Pending Completed Studies During Hospitalization Category Date Time Status CT angio chest PE protcl [id number] Stat Cat Scan 04/23/25 08:46 Completed XR chest 1V portable [id number] Routine Exams 04/24/25 08:13 Completed XR chest 1V portable [id number] Routine Exams 04/24/25 16:00 Completed XR chest 1V portable [id number] Routine Exams 04/25/25 05:59 Completed XR chest 1V portable [id number] Routine Exams 04/25/25 16:00 Completed XR chest 1V portable [id number] Routine Exams 04/26/25 06:23 Completed XR chest 1V portable [id number] Stat Exams 04/23/25 06:00 Completed XR chest 1V portable [id number] Stat Exams 04/23/25 08:20 Completed XR chest 1V portable [id number] Stat Exams 04/24/25 10:27 Completed Radiology Impressions Chest CTA 04/23/25 08:46 IMPRESSION: 1. No evidence of pulmonary embolus 2. LEFT pneumothorax has essentially resolved after chest tube placement. Tiny residual trace pneumothorax anteriorly. Chest tube in good position. 3. Lungs are well aerated. 4. Moderate esophageal hiatal hernia. Chest X-Ray 04/26/25 06:23 IMPRESSION: 1. No acute findings. Laboratory Results WBC 8.91 10^3/uL (3.29-11.43) 04/25/25 03:46 RBC 5.26 10^6/uL (3.85-5.65) 04/25/25 03:46 Hgb 15.70 g/dL (11.27-16.99) 04/25/25 03:46 Hct 45.5 % (37-53) 04/25/25 03:46 MCV 86.5 fl (82-101) 04/25/25 03:46 MCH 29.8 pg (27-33) 04/25/25 03:46 MCHC 34.5 g/dL (30-55) 04/25/25 03:46 RDW 13.6 % (12.1-15.1) 04/25/25 03:46 Plt Count 194 10^3/cmm (157-399) 04/25/25 03:46 MPV 10.0 fL (7.4-10.4) 04/25/25 03:46 Neut % (Auto) 63.2 % 04/25/25 03:46 Lymph % (Auto) 24.8 % 04/25/25 03:46 [place] % (Auto) 9.3 % 04/25/25 03:46 Eos % (Auto) 2.0 % 04/25/25 03:46 Baso % (Auto) 0.4 % 04/25/25 03:46 Neut # (Auto) 5.62 10^3/uL (1.8-7.7) 04/25/25 03:46 Lymph # (Auto) 2.2 10^3/uL (0.8-4.8) 04/25/25 03:46 [place] # (Auto) 0.8 10^3/uL (0.2-0.9) 04/25/25 03:46 Eos # (Auto) 0.2 10^3/uL (0.0-0.8) 04/25/25 03:46 Baso # (Auto) 0.0 10^3/uL (0.0-0.1) 04/25/25 03:46 Nucleated RBC % (auto) 0 % 04/25/25 03:46 Nucleated RBCs # 0.0 /100WBC 04/25/25 03:46 Sodium 136 mmol/L (136-145) 04/26/25 04:58 Potassium 4.4 mmol/L (3.5-5.1) 04/26/25 04:58 Chloride 104 mmol/L (98-107) 04/26/25 04:58 Carbon Dioxide 21 mmol/L (22-29) L 04/26/25 04:58 Anion Gap 15.4 (5-19) 04/26/25 04:58 BUN 13 mg/dL (8-23) 04/26/25 04:58 Creatinine 0.6 mg/dL (0.7-1.2) L 04/26/25 04:58 GFR Calculation 134.4 mL/min (90-130) H 04/26/25 04:58 Glucose 77 mg/dL (65-115) 04/26/25 04:58 Calculated Osmolality 281 mOsm/kg (285-295) L 04/26/25 04:58 Calcium 8.7 mg/dL (8.5-10.5) 04/26/25 04:58 Magnesium 2.2 mg/dL (1.7-2.3) 04/26/25 04:58 Total Bilirubin 0.5 mg/dL (0.15-1.2) 04/25/25 03:46 AST 13 U/L (0-40) 04/25/25 03:46 ALT 11 U/L (0-41) 04/25/25 03:46 Alkaline Phosphatase 68 U/L (40-130) 04/25/25 03:46 Troponin T Baseline 11 ng/L (0-15) 04/23/25 06:00 Troponin T 120 Minute 9.07 ng/L (0-15) 04/23/25 08:30 Delta Troponin T -1.93 ABS# (0-10) L 04/23/25 08:30 C-Reactive Protein 41.5 mg/L (0.0-4.9) H 04/25/25 03:46 Total Protein 6.9 g/dL (6.6-8.7) 04/25/25 03:46 Albumin 3.6 g/dL (3.5-5.2) 04/25/25 03:46 Globulin 3.3 g/dL (1.3-4.6) 04/25/25 03:46 Vitals Last Vital Signs Temp 98.4 F 04/26/25 02:00 Pulse 76 04/26/25 08:00 Resp 18 04/26/25 08:00 BP 129/79 04/26/25 08:00 Pulse Ox 97 04/26/25 08:00 O2 Del Method Room Air 04/26/25 08:00 O2 Flow Rate 2 04/25/25 10:00 Discharge Plan Discharge Patient Disposition: Home Condition: Stable Prescriptions: New nicotine 14 mg/24 hr Patch 24 Hour 1 patch transdermal DAILY 7 Days Qty: 7 0RF Continued multivitamin Tablet 1 tab PO DAILY ascorbate calcium (vitamin C) 500 mg tablet 500 mg PO DAILY magnesium citrate 100 mg tablet 100 mg PO DAILY lorazepam 1 mg tablet 1 mg PO .Q6-8H PRN (Reason: anxiety) Qty: 30 2RF tamsulosin 0.4 mg capsule 0.4 mg PO DAILY Qty: 30 11RF aspirin 325 mg Tablet 325 mg PO DAILY escitalopram oxalate 20 mg tablet 20 mg PO DAILY Discharge Orders: Discharge Order (Routine); Ordered 04/26/25 Ordered By: Mary Whitlock Referrals: Jaswinder Rene MD [Primary Care Provider, Internal Medicine] - 7-10 days Referral Note: 7 days Discharge Diet: Usual diet Discharge Activity: Resume usual activity Patient Instructions: Abdominal Aortic Aneurysm, Nicotine (Absorbed through the skin) (Nicoderm CQ, Nicoderm CQ..., COPD - Emphysema, Spontaneous Pneumothorax (DC), How to Stop Smoking (DC), Opioid Safety, Pain Management Activity Restrictions/Additional Instructions: -Change dressing every other day, 4x4 gauze and tape (use the petroleum gauze on the first dressing change only) -Keep incision clean and dry -May shower, no tubs baths and do not scrub the area -Do not fly in a plane for several weeks and avoid scuba diving, there is risk of recurrence of collapse of lung -Follow up with Dr. Rene in 7 days for lung exam and removal of sutures -Discontinue smoking, smoking cessation education given -Return to emergency department if shortness of breath, chest pain/pressure (similar to when you had the collapsed lung), redness or purulent drainage from incision, sign of infection, fevers/chills Discharge Attestations Time Spent in Discharge Care*: greater than 30 min Quality Metrics Clinical Quality Measures [ No reported AMI, CVA or VTE this stay (None. )] Coding Level of Care Code Acute Code for Chg Fwd Diagnoses Spontaneous pneumothorax J93.83 COPD (chronic obstructive pulmonary disease) J44.9 Tobacco abuse Z72.0
--- NOTE | 2025-04-26 10:14 | PC.NURSE ---
Discharge instructions to patient, prescription to pharmacy, IVs removed.
--- NOTE | 2025-04-26 10:38 | PC.NURSE ---
Patient ambulated to front entrance, belongings in hand, accompanied by this nurse and patient's son.
== END 2025-04-26 10:35 | disposition home or self-care (01) | DRG 200 ==
LOC: ER 10:35 → ICU 15:45
PROVIDERS: Internal Medicine; Student in an Organized Health Care Education/Training Program; Admitting Provider Surgery; Emergency Provider Family Medicine; PCP Internal Medicine; Visit Provider Surgery
DX: J93.83 Other pneumothorax (principal); D84.9 Immunodeficiency, unspecified; F17.210 Nicotine dependence, cigarettes, uncomplicated; I71.40 Abdominal aortic aneurysm, without rupture, unspecified; G62.9 Polyneuropathy, unspecified; N40.0 Benign prostatic hyperplasia without lower urinary tract symptoms; F32.A Depression, unspecified; J43.9 Emphysema, unspecified; Z85.038 Personal history of other malignant neoplasm of large intestine; Z79.82 Long term (current) use of aspirin
CPT/HCPCS: 12345; 36415; 71045; 71275; 80048; 80053; 83735; 84484; 85025; 86140; 93005; 94664; 96372; 96374; 96376; 97116; 97161; 97162; 99285; 99291; J1171; J1650; J2250; J2270; J3010; J9999

== ENCOUNTER 2025-06-08 11:16 | Oncology outpatient (recurring) (ONCR) | payer MEDICAID, SELFPAY ==
[2025-06-08] MEDS: iohexol 350 mg/mL 500 mL Btl (per mL) PO (12:03)
--- NOTE | 2025-06-08 12:30 | CTR_ITS ---
PROCEDURE INFORMATION: Exam: CT Chest With Contrast; Diagnostic Exam date and time: 06/08/2025 12:32 PM Age: 70 years old Clinical indication: Condition or disease; Other: Colon cancer; Prior surgery; Surgery date: 6+ months; Additional info: Surveillance TECHNIQUE: Imaging protocol: Diagnostic computed tomography of the chest with contrast. Radiation optimization: All CT scans at this facility use at least one of these dose optimization techniques: automated exposure control; mA and/or kV adjustment per patient size (includes targeted exams where dose is matched to clinical indication); or iterative reconstruction. Contrast material: OMNI 350; Contrast volume: 100 ml; Contrast route: INTRAVENOUS (IV); COMPARISON: CT angio chest PE protcl [id number] 04/23/2025 10:24 AM RADIATION DOSE METRICS: Total DLP (mGy-cm): 1342.74 FINDINGS: Lungs: Small subpleural and bilateral lower lobe pulmonary nodules are all 5 mm in size and smaller and unchanged. Pleural spaces: Unremarkable. No pneumothorax. No pleural effusion. Heart: Unremarkable. No cardiomegaly. No pericardial effusion. Coronary arteries: Coronary artery calcifications. Lymph nodes: Extensive calcified right hilar and mediastinal lymph nodes. Vasculature: Unremarkable. No aortic aneurysm. Bones/joints: Unremarkable. No acute fracture. Soft tissues: Unremarkable. PROCEDURE INFORMATION: Exam: CT Abdomen And Pelvis With Contrast Exam date and time: 06/08/2025 12:32 PM Age: 70 years old Clinical indication: Condition or disease; Other: Colon cancer; Prior surgery; Surgery date: 6+ months; Additional info: Surveillance TECHNIQUE: Imaging protocol: Computed tomography of the abdomen and pelvis with contrast. Radiation optimization: All CT scans at this facility use at least one of these dose optimization techniques: automated exposure control; mA and/or kV adjustment per patient size (includes targeted exams where dose is matched to clinical indication); or iterative reconstruction. Contrast material: OMNI 350; Contrast volume: 100 ml; Contrast route: INTRAVENOUS (IV); COMPARISON: CT chest abdpel w/*[id number] 06/09/2024 9:33 AM RADIATION DOSE METRICS: Total DLP (mGy-cm): 1342.74 FINDINGS: Liver: Hepatic cysts. Gallbladder and biliary ducts: Normal. No calcified stones. No ductal dilation. Pancreas: Normal. No ductal dilation. Spleen: Calcified granuloma within the spleen. Adrenal glands: Normal. No mass. Kidneys and ureters: Normal. No hydronephrosis. Stomach and bowel: Unremarkable. No obstruction. No mucosal thickening. Appendix: No evidence of appendicitis. Intraperitoneal space: Unremarkable. No free air. No significant fluid collection. Vasculature: 3.5 cm ectasia of the infrarenal abdominal aorta. Lymph nodes: Unremarkable. No enlarged lymph nodes. Urinary bladder: Unremarkable as visualized. Reproductive: Unremarkable as visualized. Bones/joints: Mild compression of L1. Soft tissues: Unremarkable. CT/CT chest abdpel w/*[id number] IMPRESSION: No suspicious findings. Stable and probably benign pulmonary nodules. IMPRESSION: No acute subdiaphragmatic pathology.
[2025-06-08] MEDS: iohexol 350 mg/mL 500 mL Btl (per mL) IV (12:35)
== END 2025-06-18 23:59 | disposition home or self-care (01) ==
LOC: ONCMED 11:18
PROVIDERS: PCP Internal Medicine; Visit Provider Nurse Practitioner Family
DX: Z08 Encounter for follow-up examination after completed treatment for malignant neoplasm (principal); Z85.038 Personal history of other malignant neoplasm of large intestine; R39.198 Other difficulties with micturition; R53.83 Other fatigue; F17.210 Nicotine dependence, cigarettes, uncomplicated; J44.9 Chronic obstructive pulmonary disease, unspecified; Z90.49 Acquired absence of other specified parts of digestive tract; Z92.21 Personal history of antineoplastic chemotherapy; C18.7 Malignant neoplasm of sigmoid colon
CPT/HCPCS: 71260; 74177

== ENCOUNTER 2025-07-16 09:46 | Oncology outpatient (recurring) (ONCR) | payer MEDICARE, MEDICAID, SELFPAY ==
[2025-07-16 10:20] LABS: Hematocrit 45.1 % (37-53); Hemoglobin 16.00 g/dL (11.27-16.99); Mean Corpuscular HGB Conc 35.5 g/dL (30-55); Mean Corpuscular Hemoglobin 30.4 pg (27-33); Mean Corpuscular Volume 85.6 fl (82-101); Nucleated Red Blood Cells % 0 %; Platelet Count 165 10^3/cmm (157-399); Red Blood Count 5.27 10^6/uL (3.85-5.65); White Blood Count 4.93 10^3/uL (3.29-11.43)
[2025-07-16 10:51] LABS: Carcinoembryonic Antigen 4.2 ng/mL (0.0-4.7)
[2025-07-16 11:02] LABS: Alanine Aminotransferase 22 U/L (0-41); Albumin Level 3.9 g/dL (3.5-5.2); Alkaline Phosphatase 75 U/L (40-130); Anion Gap 13.2 (5-19); Aspartate Amino Transferase 21 U/L (0-40); Blood Urea Nitrogen 11 mg/dL (8-23); Calcium 8.5 mg/dL (8.5-10.5); Carbon Dioxide 24 mmol/L (22-29); Chloride 102 mmol/L (98-107); Creatinine Clr Calc Pharmacy 112.8580; Globulin 3.2 g/dL (1.3-4.6); Glucose 94 mg/dL (65-115); Osmolality Calculated 279 mOsm/kg (285-295); Potassium 4.2 mmol/L (3.5-5.1); Sodium 135 mmol/L (136-145); Total Protein 7.1 g/dL (6.6-8.7)
== END 2025-07-19 23:59 | disposition home or self-care (01) ==
PROVIDERS: PCP Internal Medicine; Visit Provider Nurse Practitioner Family
DX: Z08 Encounter for follow-up examination after completed treatment for malignant neoplasm (principal); Z85.038 Personal history of other malignant neoplasm of large intestine; F17.210 Nicotine dependence, cigarettes, uncomplicated; Z92.21 Personal history of antineoplastic chemotherapy; Z71.6 Tobacco abuse counseling
CPT/HCPCS: 36415; 80053; 82378; 85025; 99214